=== PATIENT | female | born 1965 | race Caucasian/White ===

== ENCOUNTER 2017-04-12 12:47 | Emergency (ER) | payer OTHER ==
[~2017-04-12] VITALS: Ht 165.1 cm; Wt 71.3 kg
[~2017-04-12 12:47] MED LIST: SERT-234 PO
[2017-04-12 12:56] VITALS: BP 161/118; PULSE 91; TEMP 36.8; O2SAT 98; Ht 165.1 cm; Wt 71.3 kg
[2017-04-12] MEDS ORDERED: ASPI325T45 PO (13:50)
[2017-04-12] MEDS ORDERED: TPRSR/25 PO (13:50)
[2017-04-12] MEDS ORDERED: NRN100 PO (13:50)
[2017-04-12] MEDS ORDERED: NAPR-1169 PO (14:18)
--- NOTE | 2017-04-12 14:20 | EMERGENCY ROOM VISIT NOTE ---
History First contact with patient: 13:02 Chief Complaint: NECK PAIN Stated Complaint: BULDING DISC IN NECK,EXTREME PAIN History of Present Illness The patient is a 52 year old female who presents to the Emergency Room with complaints of neck pain. The patient states that she has had ongoing issues with neck pain for greater than 1 month. She reports that the pain is located on the left side and radiates into the left arm. She states that she had previously had some numbness and tingling in the arm, but this has resolved. She has seen her primary care provider and pain management for this pain in the past. She has received injections and has tried gabapentin and muscle relaxers without relief. She states that these medications do seem to have helped with the numbness and tingling in the arm, however they do not help with her pain. She has had an MRI performed which showed a bulging disc, per patient. She rates her overall discomfort a 10/10. She has been taking large amounts of aspirin at home for the pain. She states the pain is worse with range of motion. She reports that her primary care provider is in the process of setting her up with a cytogenetic technologist. Review of Systems A complete 10 point review of systems was reviewed with the patient with pertinent positives and negatives as per history of present illness. All else were negative. Past Medical/Surgical History Medical Problems: (1) Anxiety State Nos (2) Diverticulosis Colon (W/O Ment Of Hemorrhage) (3) Esophageal Reflux (4) Hypertension Nos (5) Irritable Bowel Syndrome (6) Tobacco Use Disorder Surgical Problems: (1) Total knee replacement status Family History Cancer Social History Smoking Status: Former Smoker Alcohol Use: occasionally Drug Use: none Housing Status: lives with family Occupation Status: disabled Current/Historical Medications Scheduled Aspirin (Aspirin), 650 MG PO DAILY Gabapentin (Gabapentin), 100-200 MG PO DAILY Metoprolol Succinate (Metoprolol Succinate ER), 25 MG PO DAILY Naproxen (Naprosyn), 500 MG PO BID Sertraline (Zoloft), 100 MG PO QAM Physical Exam Vital Signs Date Time Temp Pulse Resp B/P (MAP) Pulse Ox O2 Delivery O2 Flow Rate FiO2 04/12/17 12:56 36.8 91 20 161/118 98 Room Air Physical Exam VITALS: Vitals are noted on the nurse's note and reviewed by myself. Vital signs stable. GENERAL: This is a 52-year-old female, in no acute distress, nondiaphoretic, well-developed well-nourished. HEART: Regular rate and rhythm without murmurs gallops or rubs. LUNGS: Clear to auscultation bilaterally without wheezes, rales or rhonchi. MUSCULOSKELETAL: There is tenderness to palpation of the left cervical paraspinous muscles. Full range of motion of the neck and bilateral upper extremities. Strength 5/5 in the left upper extremity. NEURO: Patient was alert and oriented to person place and time. Normal sensation to light and sharp touch. Deep tendon reflexes 2+ throughout. No focal neurological deficits. Medical Decision & Procedures Medical Decision Differential diagnosis includes musculoskeletal pain, herniated disc, among others. The patient is a 52-year-old female who presents today complaining of left- sided neck pain. The patient has reportedly been seen by her primary care provider and pain management. She has been referred to a cytogenetic technologist. I do not feel that narcotic medication is indicated at this time and did offer the patient a prescription for Naprosyn, which she accepted. I did provide her with a referral to an orthopedic compensation specialist. She has no numbness or weakness in the upper extremities. I do not feel that any further imaging is necessary, as she has had MRI in the past. Further conservative measures were discussed with the patient. She verbalized understanding of my assessment and treatment plan and was discharged home in good condition. [place] Drug Monitoring Program Search Results: patient reviewed within database Medication Reconcilliation Current Medication List: was personally reviewed by me Blood Pressure Screening Patient's blood pressure: Elevated blood pressure Blood pressure disposition: Referred to PCP Impression Primary Impression: Cervical radiculopathy Departure Information Dispostion Home / Self-Care Condition GOOD Prescriptions Naproxen (Naprosyn) 500 Mg Tab 500 MG PO BID for 10 Days, #20 TAB Prov: Nieves Alcazar ., ORI 04/12/17 Referrals Diego Mario M.D. (MEDICAL) (PCP) Renaldo Farrell D.O. Patient Instructions My [facility] Additional Instructions Take the Naprosyn as prescribed. For pain control, you can use the following [id number] medicines (if >12 yo): - Regular strength (325mg/tab) Tylenol (acetaminophen) 2 tabs every 4-6 hours as needed. Do not exceed 12 tablets in a 24 hour period. Avoid taking more than 4 grams (4000 mg) of Tylenol per day. This includes any other sources of acetaminophen you may take on a regular basis. Follow-up with your primary care provider, pain management, and orthopedic spine for further evaluation of your neck pain.
== END 2017-04-12 14:25 | disposition home or self-care (01) ==
LOC: C.EDB 12:50 → C.EDD 14:25
DX: M54.12 Radiculopathy, cervical region (principal); F41.9 Anxiety disorder, unspecified; K57.30 Diverticulosis of large intestine without perforation or abscess without bleeding; K21.9 Gastro-esophageal reflux disease without esophagitis; I10 Essential (primary) hypertension; K58.9 Irritable bowel syndrome, unspecified; Z79.82 Long term (current) use of aspirin; Z87.891 Personal history of nicotine dependence; Z96.659 Presence of unspecified artificial knee joint

== ENCOUNTER 2018-07-05 14:43 | Inpatient (IN) ==
[2018-07-05] MEDS ORDERED: ONDANSETRON INJ 2 MG/ML 2 ML VIAL IV STA (15:22)
--- NOTE | 2018-07-05 15:27 | Emergency Department Note ---
ED Provider Note CHIEF COMPLAINT: right knee pain HISTORY OF PRESENT ILLNESS: The patient is a 53 y/o female who presents to the ER because of right knee pain , 10, sharp. The patient also notes the following associated symptoms: inability bear weight. The symptoms started 1 day ago and are rapidly worsening. No trauma. The patient has tried the following for relief :OTC pain meds without relief Prior history of knee replacement with infection and revision by Dr. Nicolas. Pt denies LOC, headache, fevers, chills, diaphoresis, visual changes, neck pain , chest pain, breathing difficulties, nausea, vomiting, abdominal pain, back pain, melena, hematochezia, urinary symptoms, numbness, weakness, lymphadenopathy, rash, or other complaints. REVIEW OF SYSTEMS: See HPI for pertinent positives and negatives. A total of ten systems were reviewed and were otherwise negative. PMHx/PSHx: TKR SOCIAL HISTORY: Patient lives at home. PHYSICAL EXAM: GENERAL: Awake, alert, very uncomfortable-appearing, in severe distress HENT: Normocephalic, atraumatic. Oropharynx unremarkable. EYES: PERRL. Normal conjunctiva. Sclera non-icteric. NECK: Inspection normal. Non-tender. Supple. No nuchal rigidity. FROM. No masses. RESPIRATORY: Clear to auscultation. No wheezes. No rales. Normal respiratory effort. CARDIAC: Normal rate. Normal rhythm. No murmurs. No rubs. Extremities warm and well perfused. Pulses equal. No JVD. GI: Soft, non-distended. No tenderness to palpation. No rebound or guarding. No masses. RECTAL: Deferred. MUSCULOSKELETAL: Atraumatic. Chest examination reveals no tenderness. The back is symmetrical on inspection without obvious abnormality. There is no CVA tenderness to palpation. No joint edema. LOWER EXTREMITIES: Calves are equal size bilaterally and non-tender. No edema. No discoloration. NEURO: Normal sensorium. No sensory or motor deficits noted. SKIN: No rash or jaundice noted. EMERGENCY DEPARTMENT COURSE: 1510: Past medical records reviewed. The patient was evaluated in room B7, and a complete history and physical examination were performed. 1624: I reevaluated the patient at this time who is feeling better. 1637: I reviewed the patient's case with Dr. [facility]. He will evaluate the patient for further management. 1648: I spoke with the patient at this time and updated her about her admission to the hospital. The patient requested a 3rd dose of pain medication at this time. MEDICAL DECISION MAKING: Triage Nursing notes reviewed. The patient's presentation and history were concerning for right knee pain and prior infection TKR Etiologies such as infection, soft tissue injury, fracture, dislocation, neurovascular compromise, compartment syndrome, as well as others were entertained. Patient was evaluated. She is quite uncomfortable. An IV was established. She was given multiple doses of IV Dilaudid for symptom control. Her blood work was concerning as she had a 13,000 white count. Her ESR and CRP were markedly elevated. Patient's chemistry panel lactate, pro-calcitonin were negative. X-ray imaging was performed and did not reveal any hardware abnormality however there was some swelling noted. I did discuss the case with [facility] association manager. The patient will be admitted to the hospital for further treatment and evaluation of a potential septic right knee prosthesis. Fluid analysis will be done by orthopedics. IMPRESSION: Right knee pain PLAN: Being Evaluated by orthopedics. The scribe's documentation has been prepared under my direction and personally reviewed by me in its entirety. I confirm that the note above accurately reflects all work, treatment, procedures, and medical decision making performed by me. Impression & Plan Knee pain, right Past Med/Surg History Surgical History Total knee replacement status Social History Current Living Situation: Alone Other Information That Helps Us Care for You: No Feels Safe at Home: Yes Safety Concerns: Feels Safe At This Time Smoking Status: Current every day smoker Tobacco Type: cigarettes Cigarettes per Day: 10 Do You Dip or Chew Tobacco: No Second Hand Exposure: No Tobacco Cessation Education Requested by Patient: No Hx Alcohol Use: Yes Alcohol Intake Frequency: other Hx Substance Use: No Beliefs That Will Affect Care: None Preferred Language: Italian Communication Ability: Effective Marketing Research Intern Required: No Results & Data Vital Signs Vital Signs - 24 hr 07/05/18 14:44 07/05/18 16:28 07/05/18 16:36 Temperature 36.8 C Temperature Source Oral Sepsis Recent Fever Within 48 Hours No Sepsis Action Taken by Nursing No Action Required Pulse Rate 87 Pulse Rate [Apical] Pulse Rate [Right Finger] Pulse Rhythm [Apical] Pulse Rhythm [Right Finger] Pulse Strength [Apical] Pulse Strength [Right Finger] Respiratory Rate 20 Respiratory Effort / Characteristics Non-Labored Spontaneous Respiratory Depth Normal Respiratory Pattern Regular Blood Pressure 139/88 Blood Pressure [Left Arm] Blood Pressure Mean 105 Blood Pressure Mean [Left Arm] Blood Pressure Position Sitting Blood Pressure Position [Left Arm] Pulse Oximetry 100 88 L 95 Oxygen Delivery Method Room Air Nasal Cannula Nasal Cannula Oxygen Flow Rate 2 07/05/18 17:00 07/05/18 17:01 07/05/18 18:28 Temperature 36.6 C Temperature Source Oral Sepsis Recent Fever Within 48 Hours Sepsis Action Taken by Nursing Pulse Rate 73 Pulse Rate [Apical] 77 Pulse Rate [Right Finger] 76 Pulse Rhythm [Apical] Regular Pulse Rhythm [Right Finger] Regular Pulse Strength [Apical] Normal Pulse Strength [Right Finger] Normal Respiratory Rate 18 20 16 Respiratory Effort / Characteristics Non-Labored Spontaneous Non-Labored Respiratory Depth Normal Normal Respiratory Pattern Regular Blood Pressure 114/68 Blood Pressure [Left Arm] 118/72 124/82 Blood Pressure Mean Blood Pressure Mean [Left Arm] 87 96 Blood Pressure Position Blood Pressure Position [Left Arm] Lying Sitting Pulse Oximetry 98 100 97 Oxygen Delivery Method Room Air Nasal Cannula Nasal Cannula Oxygen Flow Rate 2 2 07/05/18 23:11 Temperature 37.4 C Temperature Source Oral Sepsis Recent Fever Within 48 Hours Sepsis Action Taken by Nursing Pulse Rate Pulse Rate [Apical] Pulse Rate [Right Finger] 94 H Pulse Rhythm [Apical] Pulse Rhythm [Right Finger] Pulse Strength [Apical] Pulse Strength [Right Finger] Respiratory Rate 16 Respiratory Effort / Characteristics Respiratory Depth Respiratory Pattern Blood Pressure Blood Pressure [Left Arm] 134/81 Blood Pressure Mean Blood Pressure Mean [Left Arm] 98 Blood Pressure Position Blood Pressure Position [Left Arm] Lying Pulse Oximetry 99 Oxygen Delivery Method Room Air Oxygen Flow Rate Home Medications Current Medication List: was personally reviewed by me Laboratory Data Attestation: I reviewed the patient's lab results. Result diagrams: 07/05/18 15:25 07/05/18 15:25 Lab Results 07/05/18 07/05/18 07/05/18 Range/Units 15:25 15:25 15:25 WBC 13.55 H (4.8-10.8) K/uL RBC 4.00 L (4.2-5.4) M/uL Hgb 13.1 (12.0-16.0) g/dL Hct 39.1 (37-47) % MCV 97.8 (80-100) fL MCH 32.8 (25-34) pg MCHC 33.5 (32-36) g/dL RDW Std Deviation 47.3 H (36.4-46.3) fL RDW Coeff of Jan 13.3 (11.5-14.5) % Plt Count 272 (130-400) K/uL MPV 9.7 (7.4-10.4) fL Immature Gran % (Auto) 0.3 % Neut % (Auto) 77.0 % Lymph % (Auto) 14.3 % [place] % (Auto) 7.3 % Eos % (Auto) 1.0 % Baso % (Auto) 0.1 % Immature Gran # (Auto) 0.04 H (0.00-0.02) K/uL Neut # (Auto) 10.43 H (1.4-6.5) K/uL Lymph # (Auto) 1.94 (1.2-3.4) K/uL [place] # (Auto) 0.99 H (0.11-0.59) K/uL Eos # (Auto) 0.13 (0-0.5) K/uL Baso # (Auto) 0.02 (0-0.2) K/uL ESR 32 H (0-21) mm/hr PT (9.0-12.0) Seconds INR (0.9-1.1) Sodium 139 (136-145) mmol/L Potassium 3.6 (3.5-5.1) mmol/L Chloride 109 H (98-107) mmol/L Carbon Dioxide 24 (21-32) mmol/L Anion Gap 6.0 (3-11) BUN 17 (7-18) mg/dl Creatinine 0.82 (0.6-1.2) mg/dl Est Cr Clr Drug Dosing 74.3 ml/min Est GFR ( Amer) 94.7 Est GFR (Non-Af Amer) 81.7 BUN/Creatinine Ratio 21.2 H (10-20) Glucose 125 H (70-99) mg/dl POC Lactic Acid Jeff (0.90-1.70) mmol/L Calcium 8.9 (8.5-10.1) mg/dl Total Bilirubin 0.3 (0.2-1) mg/dl AST 10 L (15-37) U/L ALT 16 (12-78) U/L Alkaline Phosphatase 87 (45-117) U/L C-Reactive Protein 7.89 H (0-0.29) mg/dl Total Protein 7.6 (6.4-8.2) gm/dl Albumin 3.7 (3.4-5.0) gm/dl Globulin 3.9 (2.5-4.0) gm/dl Albumin/Globulin Ratio 0.9 (0.9-2) Procalcitonin (0-0.5) ng/ml Urine Color Urine Appearance (Clear) Urine pH (4.5-7.5) Ur Specific Hunt (1.000-1.030) Urine Protein (Negative) Urine Glucose (UA) (Negative) Urine Ketones (Negative) Urine Blood (Negative) Urine Nitrite (Negative) Urine Bilirubin (Negative) Urine Urobilinogen (Negative) Ur Leukocyte Esterase (Negative) Fluid Source Fluid Color Fluid Appearance Fluid WBC Fluid RBC Fluid Polynuclear WBCs Fld Polynuclear WBCs % Fluid Mononuclear WBCs Fld Mononuclear WBCs % Fluid Other Cells % Synovial Source Synovial Color Synovial Appearance Synovial WBC (0-200) /uL Synovial RBC /uL Synovial Polynuclear % % Synovial Mononuclear % % Synovial Crystals 07/05/18 07/05/18 07/05/18 Range/Units 15:25 15:25 15:33 WBC (4.8-10.8) K/uL RBC (4.2-5.4) M/uL Hgb (12.0-16.0) g/dL Hct (37-47) % MCV (80-100) fL MCH (25-34) pg MCHC (32-36) g/dL RDW Std Deviation (36.4-46.3) fL RDW Coeff of Jan (11.5-14.5) % Plt Count (130-400) K/uL MPV (7.4-10.4) fL Immature Gran % (Auto) % Neut % (Auto) % Lymph % (Auto) % [place] % (Auto) % Eos % (Auto) % Baso % (Auto) % Immature Gran # (Auto) (0.00-0.02) K/uL Neut # (Auto) (1.4-6.5) K/uL Lymph # (Auto) (1.2-3.4) K/uL [place] # (Auto) (0.11-0.59) K/uL Eos # (Auto) (0-0.5) K/uL Baso # (Auto) (0-0.2) K/uL ESR (0-21) mm/hr PT 9.9 (9.0-12.0) Seconds INR 1.0 (0.9-1.1) Sodium (136-145) mmol/L Potassium (3.5-5.1) mmol/L Chloride (98-107) mmol/L Carbon Dioxide (21-32) mmol/L Anion Gap (3-11) BUN (7-18) mg/dl Creatinine (0.6-1.2) mg/dl Est Cr Clr Drug Dosing ml/min Est GFR ( Amer) Est GFR (Non-Af Amer) BUN/Creatinine Ratio (10-20) Glucose (70-99) mg/dl POC Lactic Acid Jeff 1.50 (0.90-1.70) mmol/L Calcium (8.5-10.1) mg/dl Total Bilirubin (0.2-1) mg/dl AST (15-37) U/L ALT (12-78) U/L Alkaline Phosphatase (45-117) U/L C-Reactive Protein (0-0.29) mg/dl Total Protein (6.4-8.2) gm/dl Albumin (3.4-5.0) gm/dl Globulin (2.5-4.0) gm/dl Albumin/Globulin Ratio (0.9-2) Procalcitonin < 0.05 (0-0.5) ng/ml Urine Color Urine Appearance (Clear) Urine pH (4.5-7.5) Ur Specific Hunt (1.000-1.030) Urine Protein (Negative) Urine Glucose (UA) (Negative) Urine Ketones (Negative) Urine Blood (Negative) Urine Nitrite (Negative) Urine Bilirubin (Negative) Urine Urobilinogen (Negative) Ur Leukocyte Esterase (Negative) Fluid Source Fluid Color Fluid Appearance Fluid WBC Fluid RBC Fluid Polynuclear WBCs Fld Polynuclear WBCs % Fluid Mononuclear WBCs Fld Mononuclear WBCs % Fluid Other Cells % Synovial Source Synovial Color Synovial Appearance Synovial WBC (0-200) /uL Synovial RBC /uL Synovial Polynuclear % % Synovial Mononuclear % % Synovial Crystals 07/05/18 07/05/18 07/05/18 Range/Units 19:50 19:50 20:36 WBC (4.8-10.8) K/uL RBC (4.2-5.4) M/uL Hgb (12.0-16.0) g/dL Hct (37-47) % MCV (80-100) fL MCH (25-34) pg MCHC (32-36) g/dL RDW Std Deviation (36.4-46.3) fL RDW Coeff of Jan (11.5-14.5) % Plt Count (130-400) K/uL MPV (7.4-10.4) fL Immature Gran % (Auto) % Neut % (Auto) % Lymph % (Auto) % [place] % (Auto) % Eos % (Auto) % Baso % (Auto) % Immature Gran # (Auto) (0.00-0.02) K/uL Neut # (Auto) (1.4-6.5) K/uL Lymph # (Auto) (1.2-3.4) K/uL [place] # (Auto) (0.11-0.59) K/uL Eos # (Auto) (0-0.5) K/uL Baso # (Auto) (0-0.2) K/uL ESR (0-21) mm/hr PT (9.0-12.0) Seconds INR (0.9-1.1) Sodium (136-145) mmol/L Potassium (3.5-5.1) mmol/L Chloride (98-107) mmol/L Carbon Dioxide (21-32) mmol/L Anion Gap (3-11) BUN (7-18) mg/dl Creatinine (0.6-1.2) mg/dl Est Cr Clr Drug Dosing ml/min Est GFR ( Amer) Est GFR (Non-Af Amer) BUN/Creatinine Ratio (10-20) Glucose (70-99) mg/dl POC Lactic Acid Jeff (0.90-1.70) mmol/L Calcium (8.5-10.1) mg/dl Total Bilirubin (0.2-1) mg/dl AST (15-37) U/L ALT (12-78) U/L Alkaline Phosphatase (45-117) U/L C-Reactive Protein (0-0.29) mg/dl Total Protein (6.4-8.2) gm/dl Albumin (3.4-5.0) gm/dl Globulin (2.5-4.0) gm/dl Albumin/Globulin Ratio (0.9-2) Procalcitonin (0-0.5) ng/ml Urine Color Yellow Urine Appearance Clear (Clear) Urine pH 5.0 (4.5-7.5) Ur Specific Hunt 1.034 H (1.000-1.030) Urine Protein Negative (Negative) Urine Glucose (UA) Negative (Negative) Urine Ketones Negative (Negative) Urine Blood Negative (Negative) Urine Nitrite Negative (Negative) Urine Bilirubin Negative (Negative) Urine Urobilinogen Negative (Negative) Ur Leukocyte Esterase Negative (Negative) Fluid Source Cancelled Fluid Color Cancelled Fluid Appearance Cancelled Fluid WBC Cancelled Fluid RBC Cancelled Fluid Polynuclear WBCs Cancelled Fld Polynuclear WBCs % Cancelled Fluid Mononuclear WBCs Cancelled Fld Mononuclear WBCs % Cancelled Fluid Other Cells % Cancelled Synovial Source KNEE Synovial Color STRAW Synovial Appearance CLOUDY Synovial WBC 15122 H (0-200) /uL Synovial RBC 4000 /uL Synovial Polynuclear % 76.2 % Synovial Mononuclear % 23.8 % Synovial Crystals Cancelled Administered Medications Gabapentin (Neurontin) 600 mg PO TID ANGELIA Stop: 08/04/18 20:59 Last Admin: 07/05/18 21:04 Dose: 600 mg Hydromorphone HCl (Dilaudid) 1 mg IV Q15M PRN PRN Reason: Pain Stop: 07/19/18 15:21 Last Admin: 07/05/18 21:04 Dose: 1 mg Admin: 07/05/18 18:04 Dose: 1 mg Admin: 07/05/18 16:57 Dose: 1 mg Admin: 07/05/18 16:05 Dose: 1 mg Admin: 07/05/18 15:34 Dose: 1 mg Vancomycin HCl 1,750 mg/ (Sodium Chloride) 535 mls @ 200 mls/hr IV NOW STA Stop: 07/06/18 01:54 Last Admin: 07/05/18 23:34 Dose: 200 mls/hr Magnesium Hydroxide (Milk Of Magnesia) 30 ml PO Q6H PRN PRN Reason: Constipation Stop: 08/04/18 16:44 Last Admin: 07/05/18 21:28 Dose: 30 ml Morphine Sulfate (Morphine Sulfate) 4 mg IV Q4H PRN PRN Reason: Pain Stop: 07/19/18 16:51 Last Admin: 07/05/18 23:29 Dose: 4 mg Admin: 07/05/18 19:12 Dose: 4 mg Oxycodone HCl (Roxicodone Immediate Rel) 10 mg PO Q4H PRN PRN Reason: Pain Stop: 07/19/18 16:51 Last Admin: 07/05/18 19:55 Dose: 10 mg Discontinued Medications Ethyl Chloride (Ethyl Chloride) 1 ml EXT NOW ONE Stop: 07/05/18 16:52 Last Admin: 07/05/18 19:13 Dose: 1 ml Hydromorphone HCl (Dilaudid) 0.5 mg IV NOW STA Stop: 07/06/18 00:26 Last Admin: 07/06/18 00:52 Dose: 0.5 mg Ondansetron HCl (Zofran) 4 mg IV NOW STA Stop: 07/05/18 15:23 Last Admin: 07/05/18 15:34 Dose: 4 mg Imaging Data Radiologist's Impression: Radiology results as stated below per my review and the radiologist's interpretation: XR knee RT 3V CLINICAL HISTORY: pain, no trauma, prior TKR and infection COMPARISON: None. DISCUSSION: Evidence for a total knee replacement. Longstem prosthetics are present consistent with a replacement type procedure. Mild suprapatellar soft tissue edema. No well-defined lytic or blastic process. IMPRESSION: 1. Operative changes consistent with longstem prosthetics of a total joint replacement/revision procedure. 2. Mild peripatellar soft tissue edema. 3. No acute bony abnormality. The above report was generated using voice recognition software. It may contain grammatical, syntax or spelling errors. Electronically signed by: Estuardo Rodriguez M.D. 07/05/2018 4:27 PM Blood Pressure Blood Pressure Findings: Normal blood pressure Blood Pressure Disposition: further management by hospitalist Discharge Plan Visit Data *Final* Discharge Date/Time: 07/05/18 18:28 Chief Complaint: Knee Injury/Pain Stated Complaint: RIGHT KNEE PAIN ED Provider: Kai Winters Discharge Problem: Knee pain, right Patient Disposition: Admitted As Inpatient Discharge Instructions Interventions: ED Discharge Assessment Last Done: 07/05/18 18:28
[2018-07-05] MEDS: HYDROmorphone INJ 1 MG/ML SYRINGE IV PRN ×5 (15:34→21:04)
[2018-07-05 15:41] LABS: Basophils # (auto) 0.02 K/uL (0-0.2); Basophils % (auto) 0.1 %; Eosinophils # (auto) 0.13 K/uL (0-0.5); Hematocrit (blood only) 39.1 % (37-47); Hemoglobin 13.1 g/dL (12.0-16.0); Immature Granulocytes # (auto) 0.04 K/uL (0.00-0.02); Immature Granulocytes % (auto) 0.3 %; Lymphocytes # (auto) 1.94 K/uL (1.2-3.4); Lymphocytes % (auto) 14.3 %; Mean Corpuscular Hgb Conc 33.5 g/dL (32-36); Mean Corpuscular Volume 97.8 fL (80-100); Mean Platelet Volume 9.7 fL (7.4-10.4); Monocytes # (auto) 0.99 K/uL (0.11-0.59); Monocytes % (auto) 7.3 %; Neutrophils # (auto) 10.43 K/uL (1.4-6.5); Platelet Count 272 K/uL (130-400); RDW Coefficient of Variation 13.3 % (11.5-14.5); RDW Standard Deviation 47.3 fL (36.4-46.3); White Blood Count 13.55 K/uL (4.8-10.8)
[2018-07-05 16:00] LABS: Albumin Level 3.7 gm/dl (3.4-5.0); BUN Creatinine Ratio 21.2 (10-20); Calcium 8.9 mg/dl (8.5-10.1); Creatinine Clr Calc Pharmacy 74.3 ml/min; Est GFR (African American) 94.7; Est GFR (Non-African American) 81.7; Potassium 3.6 mmol/L (3.5-5.1)
[2018-07-05 16:03] LABS: Albumin Globulin Ratio 0.9 (0.9-2); Bilirubin,Total 0.3 mg/dl (0.2-1); C Reactive Protein 7.89 mg/dl (0-0.29); Globulin 3.9 gm/dl (2.5-4.0); Total Protein 7.6 gm/dl (6.4-8.2)
--- NOTE | 2018-07-05 16:29 | XRay Report ---
XR knee RT 3V CLINICAL HISTORY: pain, no trauma, prior TKR and infection COMPARISON: None. DISCUSSION: Evidence for a total knee replacement. Longstem prosthetics are present consistent with a replacement type procedure. Mild suprapatellar soft tissue edema. No well-defined lytic or blastic process. IMPRESSION: 1. Operative changes consistent with longstem prosthetics of a total joint replacement/revision proce dure. 2. Mild peripatellar soft tissue edema. 3. No acute bony abnormality. The above report was generated using voice recognition software. It may contain grammatical, syntax or spelling errors. Electronically signed by: Estuardo Rodriguez M.D. 07/05/2018 4:27 PM
[2018-07-05] MEDS ORDERED: ACETAMINOPHEN 325 MG TAB PO PRN (16:45)
[2018-07-05] MEDS ORDERED: MAGNESIUM HYDROXIDE SUSP 30 ML UDC PO PRN (16:45)
[2018-07-05] MEDS ORDERED: ONDANSETRON INJ 2 MG/ML 2 ML VIAL IV PRN (16:45)
[2018-07-05] MEDS ORDERED: ETHYL CHLORIDE AER SPR 100 ML CAN EXT ONE (16:51)
--- NOTE | 2018-07-05 17:12 | History & Physical Report ---
Date of Service July 05, 2018 Assessment & Plan (1) Painful total knee replacement, right: Acute onset of painful right total knee arthroplasty. Due to the patient' s significant past history for septic TKA and the acute onset of pain/effusion of her right total knee arthroplasty, the patient was admitted for pain control and work up to r/o PJI. I have indicated the patient for right knee arthrocentesis, risks, benefits and complications were explained to the patient detail which include however not limited to infections, blood loss, hematoma, pain, need for re-aspiration, injury to surrounding nerves, bone, vessels, soft tissue. Patient wished to proceed with arthrocentesis and informed consent was obtained. -Synovial fluid analysis pending -UA pening -Blood cultures pending -Pain control -Ice and elevation right knee -3 phase bone scan History of Present Illness Chief Complaint: Right knee pain Primary Care Provider: Estuardo Booth The patient is a 53 year old female with significant hx for R TKA by Dr. Nicolas in 2007, with subsequent infection resulting in explant, antibiotic spacer and revision TKA performed 05/2011. The patient reports a 1 day history of increasing pain and difficulty ambulating. Patient denies recent infections, open wounds, denies F/C/N/V/SOB/CP. Denies trauma to R knee. Denies history of gout. Follows up with Dr. Nicolas regularly. Seen at [facility] and found to have elevated inflammatory markers and subsequently admitted for observation for further work up for septic R TKA. Allergies Allergy/AdvReac Type Severity Reaction Status Date / Time enoxaparin Allergy Intermediate RASH Verified 07/05/18 16:09 Sulfa (Sulfonamide Allergy Unknown HIVES TO Verified 07/05/18 16:09 Antibiotics) SULFA DRUGS Home Medications Home Medications Medication Instructions Recorded Confirmed Type aspirin 650 mg PO Q6H 07/05/18 07/05/18 History gabapentin [Neurontin] 600 mg PO TID 07/05/18 07/05/18 History methylphenidate HCl [Ritalin] 10 mg PO BID 07/05/18 07/05/18 History methylphenidate HCl [Ritalin] 20 mg PO QAM 07/05/18 07/05/18 History metoprolol succinate [Toprol XL] 100 mg PO DAILY 07/05/18 07/05/18 History omeprazole 20 mg PO DAILYBB 07/05/18 07/05/18 History sertraline [Zoloft] 100 mg PO QAM 07/05/18 07/05/18 History Past Med/Surg History Surgical History Total knee replacement status Social History Current Living Situation: Alone Other Information That Helps Us Care for You: No Feels Safe at Home: Yes Safety Concerns: Feels Safe At This Time Smoking Status: Current every day smoker Tobacco Type: cigarettes Cigarettes per Day: 10 Do You Dip or Chew Tobacco: No Second Hand Exposure: No Tobacco Cessation Education Requested by Patient: No Hx Alcohol Use: Yes Alcohol Intake Frequency: other Hx Substance Use: No Beliefs That Will Affect Care: None Preferred Language: Lao Communication Ability: Effective 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 Patient 's knee is diffusely tender. Constitutional: WD/WN, vitals as above well developed Eyes: PERRL, conjunctivae normal, anicteric sclerae ENMT: external ear and nose normal, oropharynx normal Respiratory: normal respiratory effort, lungs clear to auscultation Cardiovascular: RRR, no murmur, no edema Gastrointestinal (Abdomen): normal bowel sounds, soft, nontender, no hepatosplenomegaly Skin: no rashes, warm and dry Neurologic: patellar DTR's 2+ bilat, sensation intact and PERRL, EOMI, accommodation nl, no face palsy, no dysarthria Psychiatric: A+Ox3, euthymic affect Lymphatic: no cervical or axillary lymphadenopathy Results & Data Diagnostic Findings XR knee RT 3V CLINICAL HISTORY: pain, no trauma, prior TKR and infection COMPARISON: None. DISCUSSION: Evidence for a total knee replacement. Longstem prosthetics are present consistent with a replacement type procedure. Mild suprapatellar soft tissue edema. No well-defined lytic or blastic process. IMPRESSION: 1. Operative changes consistent with longstem prosthetics of a total joint replacement/revision procedure. 2. Mild peripatellar soft tissue edema. 3. No acute bony abnormality.
[2018-07-05 17:39] LABS: Prothrombin Time 9.9 Seconds (9.0-12.0)
--- NOTE | 2018-07-05 19:01 | XRay Report ---
XR chest 2V routine CLINICAL HISTORY: clearance preoperative COMPARISON STUDY: No previous studies for comparison. FINDINGS: The bones soft tissues and hemidiaphragms are normal. The cardiomediastinal silhouette is n ormal. The lungs are clear. The pulmonary vasculature is normal. IMPRESSION: Negative chest. The above report was generated using voice recognition software. It may contain grammatical, syntax or spelling errors. Electronically signed by: Estuardo Rodriguez M.D. 07/05/2018 6:59 PM
[2018-07-05] MEDS: MoRPHine SULFATE 4 MG/ML 1 ML CARP\\VIAL IV PRN ×2 (19:12→23:29)
[2018-07-05] MEDS: OXYCODONE HCL IR 5 MG TAB (IMMEDIATE RELEASE) PO PRN (19:55)
--- NOTE | 2018-07-05 19:57 | Procedure Note ---
Procedure Note Date of Service July 05, 2018 The patient's right knee was prepped with a combination of Betadine and alcohol. Utilizing sterile techniques, 18 gauge needle and 60cc syringe, an anterolateral arthrocentesis was performed. 20 cc of cloudy yellow synovial fluid was collected. 4x4's and scott wrap were applied to the knee. The patient tolerated the procedure well.
[2018-07-05] MEDS: GABAPENTIN 600 MG TAB PO SCH (21:04)
[2018-07-05 21:18] LABS: Appearance Urine Clear (Clear); Bilirubin Urine Negative (Negative); Color Urine Yellow; Glucose Urine UA Negative (Negative); Ketones Urine Negative (Negative); Leukocyte Esterase Urine Negative (Negative); Nitrite Urine Negative (Negative); Protein Urine Negative (Negative); Specific Gravity Urine 1.034 (1.000-1.030); Urobilinogen Urine Negative (Negative)
[2018-07-05 21:19] LABS: Appearance Synovial Fluid CLOUDY; Color Synovial Fluid STRAW; Polynuclear WBC Synovial 76.2 %; RBC Synovial Fluid (A) 4000 /uL; Source Synovial Fluid KNEE; WBC Synovial Fluid (A) 20576 /uL (0-200)
[2018-07-05] MEDS ORDERED: VANCOMYCIN CONSULT ACTIVE PRN (22:07)
[2018-07-05] MEDS ORDERED: VANCOMYCIN HCL 1,750 MG in SODIUM CHLORIDE 0.9% 500 ML IV STA (23:14)
[2018-07-06] MEDS ORDERED: HYDROmorphone INJ 0.5 MG/0.5 ML SYR IV STA (00:25)
--- NOTE | 2018-07-06 00:25 | Consultation ---
Date of Consultation July 06, 2018 Assessment & Plan (1) Painful total knee replacement, right: 53 y/o F Hx HTN, ADHD, GERD, smoker, chronic neck pain/radiculopathy, depression/anxiety. Presenting with pain in her R knee. She has a history of TKA 2008, explantation due to infection and revision 2010. She denies fevers or rigors presently. The pt was evaluated by orthopedics and underwent arthrocentesis. G-stain returned with rare G (+) cocci. She will likely proceed to the OR AM for a washout. We are asked to evaluate her therefore. At the time of our evaluation, she c/o knee pain only. 1) Pre-op eval - no significant CV risk factors - RCRI 0.4% - presently although baseline EKG is pending. On review of her med list, none of her present meds need to be DCd periop aside form ASA si needed, Adderall can be held while she is hospitalized as this is a full service facility. 2) HTN - cont Toprol 3) Radiculopathy - cont Mckenna 4) GERD - cont Omeprazole 5) Depression - cont Sertraline Advised against further smoking Total time for this consult including review of labs, meds, imaging, ortho records, discussion with pt - 33 min - med service will f/u post procedure History of Present Illness Reason for Consultation: Pre-op medical evaluation Requesting Physician: Ish Attending Physician: Ronald Nicolas DO History of Present Illness 53 y/o F Hx HTN, ADHD, GERD, smoker, chronic neck pain/radiculopathy, depression /anxiety. Presenting with pain in her R knee. She has a history of TKA 2007, explantation due to infection and revision 2010. She denies fevers or rigors presently. The pt was evaluated by orthopedics and underwent arthrocentesis. G-stain returned with rare G (+) cocci. She will likely proceed to the OR AM for a washout. We are asked to evaluate her therefore. At the time of our evaluation, she c/o knee pain only. PMH: 1) Chronic neck pain - cervical radiculopathy 2) DJD 3) ADHD 4) HTN 5) GERD 6) Depression/anxiety Surgical: 1) R TKA 2007, revision after infection 2010 2) R shoulder surgery Social: Smokes 1/2 pack daily - no ETOH Family: Father owing to colon CA Allergies Allergy/AdvReac Type Severity Reaction Status Date / Time enoxaparin Allergy Intermediate RASH Verified 07/05/18 16:09 Sulfa (Sulfonamide Allergy Unknown HIVES TO Verified 07/05/18 16:09 Antibiotics) SULFA DRUGS Home Medications Home Medications Medication Instructions Recorded Confirmed Type aspirin 650 mg PO Q6H 07/05/18 07/05/18 History gabapentin [Neurontin] 600 mg PO TID 07/05/18 07/05/18 History methylphenidate HCl [Ritalin] 10 mg PO BID 07/05/18 07/05/18 History methylphenidate HCl [Ritalin] 20 mg PO QAM 07/05/18 07/05/18 History metoprolol succinate [Toprol XL] 100 mg PO DAILY 07/05/18 07/05/18 History omeprazole 20 mg PO DAILYBB 07/05/18 07/05/18 History sertraline [Zoloft] 100 mg PO QAM 07/05/18 07/05/18 History Patient History Surgical History Total knee replacement status Social History Current Living Situation: Alone Other Information That Helps Us Care for You: No Feels Safe at Home: Yes Safety Concerns: Feels Safe At This Time Smoking Status: Current every day smoker Tobacco Type: cigarettes Cigarettes per Day: 10 Do You Dip or Chew Tobacco: No Second Hand Exposure: No Tobacco Cessation Education Requested by Patient: No Hx Alcohol Use: Yes Alcohol Intake Frequency: other Hx Substance Use: No Beliefs That Will Affect Care: None Preferred Language: Albanian Communication Ability: Effective Rim Turning Finisher Required: No Review of Systems General: Denies fevers, night sweats, weight loss, weight gain ENT: Denies throat pain, nasal congestion Eyes: Denies acute visual impairment, eye pain Cardiovascular: Denies CP, palpitations, PND, orthopnea Respiratory: Denies SOB, productive cough, wheezing GI: Denies nausea, vomiting, diarrhea, constipation, GI bleeding : Denies dysuria, hesitancy, frequency, hematuria Neuro: Denies headache, lightheadedness, syncope, unilateral weakness, acute loss of balance, memory loss Endocrine: Denies polydypsia, polyuria Heme: Denies unexplained bruising Skin: Denies acute rash or ulcers Musculoskeletal: Knee pain as above Physical Exam 2 Vital Signs (Past 24 Hours): Last Vital Signs Temp 37.4 C 07/05/18 23:11 Pulse 94 H 07/05/18 23:11 Resp 16 07/05/18 23:11 BP 134/81 07/05/18 23:11 Pulse Ox 99 07/05/18 23:11 Physical Exam: General: AAO x 3, no distress ENT: No erythema or exudates, no thrush Eyes: GLEN, EOMI Head and neck: Normocephalic, atraumatic, No JVD, neck is supple. Chest/heart: Nontender, S1,2, RRR, no murmurs, no gallops Lungs: CTAB, no wheezing or crackles Abdomen: Nontender, nondistended, BS+ Neuro: AAO x 3, speech is clear, no unilateral weakness or loss of sensation, coordination intact Musculoskeletal: Acnnot bend R knee at present due to pain Skin: No acute rashes or ulcers Extremities: No clubbing, cyanosis, edema
[2018-07-06] MEDS: PANTOprazole 40 MG TAB PO SCH (05:39)
[2018-07-06] MEDS: OXYCODONE HCL IR 5 MG TAB (IMMEDIATE RELEASE) PO PRN ×4 (05:39→18:34)
[2018-07-06 05:54] LABS: Basophils # (auto) 0.01 K/uL (0-0.2); Basophils % (auto) 0.1 %; Eosinophils # (auto) 0.05 K/uL (0-0.5); Eosinophils % (auto) 0.4 %; Hematocrit (blood only) 37.9 % (37-47); Hemoglobin 12.2 g/dL (12.0-16.0); Immature Granulocytes # (auto) 0.04 K/uL (0.00-0.02); Immature Granulocytes % (auto) 0.4 %; Lymphocytes # (auto) 1.48 K/uL (1.2-3.4); Lymphocytes % (auto) 13.2 %; Mean Corpuscular Hgb Conc 32.2 g/dL (32-36); Mean Corpuscular Volume 98.7 fL (80-100); Mean Platelet Volume 10.1 fL (7.4-10.4); Monocytes # (auto) 1.15 K/uL (0.11-0.59); Monocytes % (auto) 10.2 %; Neutrophils % (auto) 75.7 %; Platelet Count 227 K/uL (130-400); RDW Coefficient of Variation 13.5 % (11.5-14.5); RDW Standard Deviation 48.7 fL (36.4-46.3); Red Blood Count 3.84 M/uL (4.2-5.4); White Blood Count 11.23 K/uL (4.8-10.8)
[2018-07-06] MEDS: MoRPHine SULFATE 4 MG/ML 1 ML CARP\\VIAL IV PRN ×3 (06:07→20:35)
[2018-07-06 06:30] LABS: BUN Creatinine Ratio 17.2 (10-20); Calcium 8.5 mg/dl (8.5-10.1); Creatinine Clr Calc Pharmacy 89.6 ml/min; Est GFR (African American) 115.7; Est GFR (Non-African American) 99.9; Potassium 3.6 mmol/L (3.5-5.1)
--- NOTE | 2018-07-06 08:33 | Orthopedic Progress Note ---
Date of Service July 06, 2018 Assessment & Plan (1) Infection of total right knee replacement: follow cultures pain management plan for open I&D of right knee with poly change. Patient was seen and examined, agree with above assessment plan. Gram stain positive for gram-positive cocci, synovial fluid cell count 20,000, synovial cultures pending, blood cultures pending, discussed case with Dr. Nicolas, plan will be to proceed with OR on 07/07/2018 for irrigation and debridement of the right knee with polyethylene exchange. Continue with IV vancomycin at this time. Will make adjustments to her pain medication regimen. N.p.o. after midnight. WBC down to 11 today. Subjective Pt lying in bed. Upon arrival into the room, she complains of pain in the right knee. Pt writhing at times. No new complaints. Denies SOB, CP, LH, Abdominal pain. Aspirate growing out Gram + cocci. Physical Exam 2 Vital Signs (Past 24 Hours): Last Vital Signs Temp 37.7 C H 07/06/18 06:58 Pulse 91 H 07/06/18 06:58 Resp 16 07/06/18 06:58 BP 147/84 H 07/06/18 06:58 Pulse Ox 92 07/06/18 06:58 Physical Exam: Knee with scott wrap. No overt /tense swelling but the knee is more swollen than the left. Minimal ROM causes increased pain. Knee is warm to touch that translates down the LE. Toes mobile. Cap refill less than 2 seconds. Incision is clean dry and intact Vital signs stable.
[2018-07-06] MEDS ORDERED: NALOXONE HCL 0.4 MG/1 ML VIAL/CARP IV PRN (09:16)
[2018-07-06] MEDS ORDERED: OXYCODONE HCL 10 MG TABCR (OXYCONTIN) ONE (09:57)
[2018-07-06] MEDS: METOPROLOL SUCC 50MG EXT REL TAB PO SCH (09:58)
[2018-07-06] MEDS: GABAPENTIN 600 MG TAB PO SCH ×3 (09:58→20:38)
[2018-07-06] MEDS: SERTRALINE HCL 100 MG TABLET PO SCH (09:58)
[2018-07-06] MEDS: OXYCODONE HCL 10 MG TABCR (OXYCONTIN) PO SCH ×2 (10:00→20:50)
[2018-07-06] MEDS: METHYLPHENIDATE HCL 10 MG TABLET PO SCH ×3 (10:08→16:09)
[2018-07-06] MEDS: VANCOMYCIN HCL 1,000 MG in SODIUM CHLORIDE 0.9% 250 ML IV SCH ×2 (12:24→23:55)
--- NOTE | 2018-07-06 15:27 | Pharmacy Report ---
Pharmacy Abx Initial Consult - Date of Service July 06, 2018 - Pharmacy Dosing Scope Date of Consult: 07/05/18 Consultation requested by: Dr. Hager Pharmacy is consulted to initiate vancomycin IV dosing therapy, order appropriate labs and adjust drug dose/frequency. - Subjective The patient is a 53 year old F admitted on 07/05/18 16:45. - Objective Height: 5 ft 6 in Weight: 69 kg Vital Signs (Past 12hrs): Vital Signs Temp Pulse Resp BP Pulse Ox 07/06/18 14:52 36.5 C 76 18 118/78 96 07/06/18 10:01 85 137/88 07/06/18 06:58 37.7 C H 91 H 16 147/84 H 92 Lab Results (24hrs): Laboratory Tests (24 Hours) 07/06/18 07/06/18 07/05/18 05:21 05:21 15:25 WBC 11.23 H Neut # (Auto) 8.50 H ESR Creatinine 0.68 Est Cr Clr Drug Dosing 89.6 C-Reactive Protein Procalcitonin < 0.05 07/05/18 07/05/18 07/05/18 15:25 15:25 15:25 WBC 13.55 H Neut # (Auto) 10.43 H ESR 32 H Creatinine 0.82 Est Cr Clr Drug Dosing 74.3 C-Reactive Protein 7.89 H Procalcitonin Micro Results: 07/05/18 19:50 Gram Stain - Final Joint Fluid/Space (Synovial) 07/05/18 20:23 Fungal Smear - Final Knee,Right Fungal Culture - Pending 07/05/18 19:50 Acid Fast Bacilli Smear - Pending Tissue,Undefined Acid Fast Bacilli Culture - Pending 07/05/18 16:19 Blood Culture - Pending Blood 07/05/18 15:25 Blood Culture - Pending Blood - Assessment & Plan Assessment * 53 year old F admitted for cute onset of painful right total knee arthroplasty * Significant past history for septic TKA Plan Vancomycin IV * Estimated PK Parameters: Vd 0.7 L/kg, Vinnie 0.074 hr-1, t1/2 9.3 hr * Loading dose: 1750 mg (25 mg/kg) * Maintenance dose: 1000 mg IV (14.5 mg/kg) every 12 hours * Goal trough level: 15 to 20 mcg/mL * Trough ordered for: 07/07 @1130 Pharmacy will continue to follow and will adjust dose/frequency as necessary. Thank you.
--- NOTE | 2018-07-06 16:26 | Anesthesiology Consultation ---
Date of Service July 06, 2018 Assessment & Plan (1) Encounter for pre-operative examination: Chart Review Chart Review: Acceptable Risk for Surgery ASA ASA2 Proposed Anesthesia Anesthesia Type: General NPO Date Last Intake of Fluids: 07/06/18 Time Last Intake of Fluids: 06:00 Last Intake of Fluids Comment: sips with meds. Date Last Intake of Solids: 07/05/17 Time Last Intake of Solids: 23:00 History Surgery Operation Date: 07/07/18 07:00 Proposed Procedures p Right Incision and Drainage Poly Exchange González Nicolas DO Height/Weight Height: 5 ft 6 in Weight: 69 kg Allergies Allergy/AdvReac Type Severity Reaction Status Date / Time enoxaparin Allergy Intermediate RASH Verified 07/07/18 11:14 Sulfa (Sulfonamide Allergy Unknown HIVES TO Verified 07/07/18 11:14 Antibiotics) SULFA DRUGS Medications Home Medications Medication Instructions Recorded Confirmed Last Taken aspirin 650 mg PO Q6H 07/05/18 07/05/18 07/05/18 gabapentin [Neurontin] 600 mg PO TID 07/05/18 07/05/18 07/05/18 methylphenidate HCl [Ritalin] 10 mg PO BID 07/05/18 07/05/18 07/05/18 methylphenidate HCl [Ritalin] 20 mg PO QAM 07/05/18 07/05/18 07/05/18 metoprolol succinate [Toprol XL] 100 mg PO DAILY 07/05/18 07/05/18 07/05/18 omeprazole 20 mg PO DAILYBB 07/05/18 07/05/18 07/05/18 sertraline [Zoloft] 100 mg PO QAM 07/05/18 07/05/18 07/05/18 Active Medications Generic Name Dose Route Start Last Admin Trade Name Freq PRN Reason Stop Dose Admin Gabapentin 600 mg 07/05/18 21:00 07/07/18 09:30 Neurontin PO 08/04/18 20:59 600 mg TID ANGELIA Administration Vancomycin HCl 1,000 mg/ 270 mls @ 125 mls/hr 07/06/18 12:00 07/07/18 02:05 Sodium Chloride IV 08/17/18 11:59 125 mls/hr Q12H ANGELIA Infusion Protocol Magnesium Hydroxide 30 ml 07/05/18 16:45 07/05/18 21:28 Milk Of Magnesia PO 08/04/18 16:44 30 ml Q6H PRN Administration Constipation Methylphenidate HCl 10 mg 07/06/18 12:00 07/06/18 16:09 Ritalin PO 07/20/18 11:59 10 mg BID@1200,1600 ANGELIA Administration Methylphenidate HCl 20 mg 07/06/18 09:00 07/07/18 10:12 Ritalin PO 07/20/18 08:59 Not Given QAM ANGELIA Metoprolol Succinate 100 mg 07/06/18 09:00 07/07/18 09:30 Toprol Xl PO 08/05/18 08:59 100 mg DAILY ANGELIA Administration Morphine Sulfate 4 mg 07/06/18 08:11 07/07/18 09:53 Morphine Sulfate IV 07/19/18 16:51 4 mg Q3H PRN Administration Pain Oxycodone HCl 5 mg 07/05/18 16:52 07/06/18 18:34 Roxicodone Immediate Rel PO 07/19/18 16:51 5 mg Q4H PRN Administration Pain Oxycodone HCl 10 mg 07/05/18 16:52 07/07/18 08:12 Roxicodone Immediate Rel PO 07/19/18 16:51 10 mg Q4H PRN Administration Pain Oxycodone HCl 10 mg 07/06/18 09:15 07/07/18 09:29 Oxycontin PO 07/20/18 09:14 10 mg BID ANGELIA Administration Pantoprazole Sodium 40 mg 07/06/18 06:30 07/07/18 05:15 Protonix PO 08/05/18 06:29 40 mg DAILYBB ANGELIA Administration Sertraline HCl 100 mg 07/06/18 09:00 07/07/18 09:29 Zoloft PO 08/05/18 08:59 100 mg QAM ANGELIA Administration Past Medical History Medical History ADHD Anxiety Chronic neck pain with radiculopathy Depression GERD (gastroesophageal reflux disease) Hypertension Past Surgical History Surgical History Total knee replacement status TKA 2007, Revision 2010 secondary to infection Social History Smoking Status: Current every day smoker tobacco type: cigarettes Smoking cigarettes per day: 10 Do You Dip or Chew Tobacco: No Hx Alcohol Use: Yes alcohol intake frequency: other Alcohol Intake Frequency Comment: on weekends Hx Substance Use: No Physical Exam Vital Signs Last Vital Signs Temp 36.5 C 07/07/18 11:14 Pulse 68 07/07/18 11:14 Resp 16 07/07/18 11:14 BP 102/69 07/07/18 11:14 Pulse Ox 93 07/07/18 11:14 Testing Electrocardiogram Date: 07/05/18 Findings: + NSR @ (74) Normal sinus rhythm Normal ECG When compared with ECG of 21-MAR-2016 12:09, No significant change was found Confirmed by BARRETT AVILA ([id number]) on 07/06/2018 3:25:40 PM Chest X-Ray Date: 07/05/18 Laboratory Results 07/07/18 05:57 07/07/18 05:57 PT 9.9 Seconds (9.0-12.0) 07/05/18 15:25 INR 1.0 (0.9-1.1) 07/05/18 15:25 Urine Color Yellow 07/05/18 20:36 Urine Appearance Clear (Clear) 07/05/18 20:36 Urine pH 5.0 (4.5-7.5) 07/05/18 20:36 Ur Specific [place] 1.034 (1.000-1.030) H 07/05/18 20:36 Urine Protein Negative (Negative) 07/05/18 20:36 Urine Glucose (UA) Negative (Negative) 07/05/18 20:36 Urine Ketones Negative (Negative) 07/05/18 20:36 Urine Nitrite Negative (Negative) 07/05/18 20:36 Ur Leukocyte Esterase Negative (Negative) 07/05/18 20:36 07/05/18 15:25 Blood Culture - Preliminary Blood Staphylococcus aureus 07/05/18 19:50 Acid Fast Bacilli Smear - Final Tissue,Undefined 07/05/18 19:50 Gram Stain - Final Joint Fluid/Space (Synovial) Aerobic and Anaerobic Culture - Preliminary Staphylococcus aureus 07/05/18 16:19 Blood Culture - Preliminary Blood No growth to date. 07/05/18 20:23 Fungal Smear - Final Knee,Right
[2018-07-07] MEDS: OXYCODONE HCL IR 5 MG TAB (IMMEDIATE RELEASE) PO PRN ×5 (04:07→21:01)
[2018-07-07] MEDS: PANTOprazole 40 MG TAB PO SCH (05:15)
[2018-07-07 06:13] LABS: Basophils # (auto) 0.02 K/uL (0-0.2); Basophils % (auto) 0.2 %; Eosinophils % (auto) 0.9 %; Hematocrit (blood only) 35.7 % (37-47); Hemoglobin 11.5 g/dL (12.0-16.0); Immature Granulocytes # (auto) 0.02 K/uL (0.00-0.02); Immature Granulocytes % (auto) 0.2 %; Lymphocytes # (auto) 1.36 K/uL (1.2-3.4); Lymphocytes % (auto) 11.6 %; Mean Corpuscular Hgb Conc 32.2 g/dL (32-36); Mean Corpuscular Volume 99.2 fL (80-100); Mean Platelet Volume 9.6 fL (7.4-10.4); Monocytes # (auto) 1.48 K/uL (0.11-0.59); Monocytes % (auto) 12.6 %; Neutrophils # (auto) 8.77 K/uL (1.4-6.5); Neutrophils % (auto) 74.5 %; Platelet Count 213 K/uL (130-400); RDW Coefficient of Variation 13.2 % (11.5-14.5); RDW Standard Deviation 47.8 fL (36.4-46.3); White Blood Count 11.75 K/uL (4.8-10.8)
[2018-07-07 06:48] LABS: BUN Creatinine Ratio 16.1 (10-20); Calcium 8.7 mg/dl (8.5-10.1); Creatinine Clr Calc Pharmacy 89.6 ml/min; Est GFR (African American) 115.7; Est GFR (Non-African American) 99.9; Potassium 3.7 mmol/L (3.5-5.1)
[2018-07-07] MEDS: OXYCODONE HCL 10 MG TABCR (OXYCONTIN) PO SCH ×2 (09:29→20:43)
[2018-07-07] MEDS: SERTRALINE HCL 100 MG TABLET PO SCH (09:29)
[2018-07-07] MEDS: METOPROLOL SUCC 50MG EXT REL TAB PO SCH (09:30)
[2018-07-07] MEDS: GABAPENTIN 600 MG TAB PO SCH ×3 (09:30→20:41)
[2018-07-07] MEDS: MoRPHine SULFATE 4 MG/ML 1 ML CARP\\VIAL IV PRN ×3 (09:53→22:36)
[2018-07-07] MEDS: METHYLPHENIDATE HCL 10 MG TABLET PO SCH ×3 (10:12→17:07)
[2018-07-07] MEDS ORDERED: VANCOMYCIN TROUGH ONE (11:30)
[2018-07-07] MEDS ORDERED: BACITRACIN INJ 50,000 UNIT VIAL ONE ×2 (11:43→12:37)
[2018-07-07] MEDS ORDERED: POVIDONE-IODINE OP SOLN 30 ML BTL ONE (11:43)
[2018-07-07] MEDS ORDERED: fentaNYL citrate 100 MCG/2 ML VIAL ONE ×2 (11:50→13:10)
[2018-07-07] MEDS ORDERED: MIDAZOLAM HCL 1 MG/ML 2ML VIAL ONE (11:50)
[2018-07-07] MEDS ORDERED: CEFAZOLIN 2,000 MG/15 ML IV PUSH IV ONE (12:41)
--- NOTE | 2018-07-07 12:42 | History & Physical Bridge Note ---
Date of Service July 07, 2018 History & Physical Bridge Note I have examined the patient, reviewed the History & Physical and in the interval since the performance of the History & Physical I have noted the following changes of clinical significance: no changes noted
[2018-07-07] MEDS ORDERED: CEFAZOLIN 2000MG 2,000 MG/15 ML SYR IV SCH (12:45)
[2018-07-07] MEDS ORDERED: KETOROLAC 30 MG/ML VIAL IV PRN (12:48)
[2018-07-07] MEDS ORDERED: ONDANSETRON INJ 2 MG/ML 2 ML VIAL IV PRN (12:48)
[2018-07-07] MEDS ORDERED: ATROPINE SULFATE 0.1 MG/ML 10ML SYR IV PRN (12:48)
[2018-07-07] MEDS ORDERED: ONDANSETRON INJ 2 MG/ML 2 ML VIAL ONE (13:06)
[2018-07-07] MEDS ORDERED: PROPOFOL IV EMULSION 10 MG/ML 20 ML VIAL IV ONE (13:06)
[2018-07-07] MEDS ORDERED: DEXAMETHASONE SOD INJ 4 MG/ML VIAL ONE (13:06)
[2018-07-07] MEDS ORDERED: LIDOCAINE HCL 2% 2 ML VIAL/AMP(20MG/ML) INFIL ONE (13:06)
--- NOTE | 2018-07-07 13:47 | Operative Report ---
Post Operative Report Pre & Post Diagnosis Operation Date: 07/07/18 07:00 Pre-Op Diagnosis: PAINFUL TKA Post-Op Diagnosis: PAINFUL TKA Procedure Operation Date: 07/07/18 07:00 Actual Procedures p Right Incision and Drainage Poly Exchange Knee(Right) poly-change to size 2 x 21 posterior stabilized Legion spacer- Ronald Nicolas DO Surgeon Ronald Nicolas DO Hand Fur Cleaner Venu Blandon Estimated Blood Loss 5 Findings Consistent with Post-Op Diagnosis Patient presents with acute onset right knee swelling and pain on Saturday been seen in the office a week ago for unrelated problems with no knee pain no swelling she relates no recent dental work or anything of any type of infection issues or even specific sickness illness preceding weeks but presented to the emergency room on Saturday with a acutely painful swollen right knee findings at the time of intraoperative surgery revealed this to be a very early infectious issues were gram-positive cocci on the pre-operative aspirate which came back consistent with methicillin sensitive staph aureus the intraoperative synovium was acutely inflamed but not thickened consistent with an acute process not a chronic process subsequently the knee was irrigated washout and poly-was changed Specimens Gram stain cultures right knee fluid Drains Medium bore Hemovac Complications none Disposition Accompanied Patient To Recovery: No Disposition: Recovery Room Indications Patient presents with acute knee effusion with gram-positive cocci methicillin sensitive gram-positive staph aureus within the right knee joint acutely from Saturday Description of Procedure After proper prepping and draping the right lower extremity incision made the region of previous anterior midline incision dissection was carried down to the region of the extensor mechanism medial parapatellar incision was made in the seropurulent fluid was evacuated from the knee joint wound was immediately irrigated drapes were changed and subsequently the utilizing a versa jet a synovectomy superficially was performed poly-have been removed 9 L of sterile saline solution with bacitracin were irrigated through the knee wound after sterile dressing changes and draped changes the wound was irrigated close muscle sterile saline solution small areas of sign of synovitis were excised and a synovectomy was performed a trial poly-was placed in a #21 size to give excellent stability both varus valgus and flexion extension mid flexion subsequently after thorough irrigation debridement lavage utilizing a versa jet for synovectomy only take O hemostasis had been obtained the poly-was replaced and the medial parapatellar was closed #1 Vicryl subcu was closed 2-0 Vicryl skin was closed with skin clips sterile compressive dressings placed medium bore Hemovac in place in the deep wound the patient told procedure well was taken recovery in stable condition operative note dictated by Fidencio please note Venu KISER was necessary for prepping draping retraction wound closure of the fascia subcu and skin was necessary for the case I attest to the content of the Intraoperative Record and any orders documented therein. Any exceptions are noted below.
[2018-07-07] MEDS ORDERED: ePHEDrine sulfate 50 MG/ML SYR ONE (13:54)
[2018-07-07] MEDS: HYDROmorphone INJ 1 MG/ML SYRINGE IV PRN ×5 (14:31→14:55)
--- NOTE | 2018-07-07 14:51 | XRay Report ---
TWO VIEWS RIGHT KNEE CLINICAL HISTORY: Postoperative examination. FINDINGS: AP and crosstable lateral portable views of the right knee are obtained. A right knee arthr oplasty is in near anatomic alignment. There are long tibial and femoral stems. There has been unders urface remodeling of the patella. No acute fracture is seen. There are expected postoperative changes around the knee including skin clips, a surgical drain, soft tissue edema, and subcutaneous gas. IMPRESSION: Expected postoperative changes status post right knee arthroplasty. No acute fracture is seen. Electronically signed by: Herminio Leija M.D. 07/07/2018 2:49 PM
--- NOTE | 2018-07-07 15:09 | Anesthesiology Progress Note ---
Date of Service July 07, 2018 Anesthesia Post Procedure Vital Signs Vital Signs: Temp Pulse Pulse Pulse Resp BP BP 07/07/18 14:57 75 13 107/87 07/07/18 14:55 75 14 07/07/18 14:51 75 13 133/72 07/07/18 14:50 76 17 07/07/18 14:46 74 12 114/79 07/07/18 14:45 74 12 07/07/18 14:41 74 13 119/89 07/07/18 14:40 72 15 07/07/18 14:36 76 16 132/80 07/07/18 14:35 74 14 07/07/18 14:32 74 13 132/80 07/07/18 14:30 75 14 07/07/18 14:27 80 16 132/84 07/07/18 14:25 76 15 07/07/18 14:22 78 16 117/72 07/07/18 14:20 79 14 07/07/18 14:18 75 14 131/94 07/07/18 14:17 36.5 C 80 15 131/94 07/07/18 11:14 36.5 C 68 16 102/69 07/07/18 07:50 37.5 C 74 17 130/80 07/06/18 22:53 37.2 C 76 16 127/79 Pulse Ox 07/07/18 14:57 92 07/07/18 14:55 94 07/07/18 14:51 93 07/07/18 14:50 92 07/07/18 14:46 96 07/07/18 14:45 94 07/07/18 14:41 98 07/07/18 14:40 97 07/07/18 14:36 99 07/07/18 14:35 99 07/07/18 14:32 100 07/07/18 14:30 99 07/07/18 14:27 100 07/07/18 14:25 99 07/07/18 14:22 100 07/07/18 14:20 98 07/07/18 14:18 98 07/07/18 14:17 98 07/07/18 11:14 93 07/07/18 07:50 93 07/06/18 22:53 91 Pain Intensity Right Knee: Pain Intensity: 4 Notes Mental Status: alert / awake / arousable Patient Amnestic to Procedure: Yes Nausea / Vomiting: adequately controlled Pain: adequately controlled Airway Patency, RR, SpO2: stable & adequate BP & HR: stable & adequate Hydration State: stable & adequate Anesthetic Complications: no major complications apparent
--- NOTE | 2018-07-07 15:11 | Hospitalist Progress Note ---
Date of Service July 07, 2018 Assessment & Plan (1) Painful total knee replacement, right: 53 y/o F Hx HTN, ADHD, GERD, smoker, chronic neck pain/radiculopathy, depression/anxiety. Presenting with pain in her R knee. She has a history of TKA 2007, explantation due to infection and revision 2010. She denies fevers or rigors presently. s/p incision/drainage and polyexchange today less pain now vitals stable post op continue on Cefazolin, Vancomycin 2) HTN - cont Toprol, BP stable 3) Neuropathy - cont Gabapentin 4) GERD - cont Omeprazole 5) Depression - cont Sertraline (2) Hypertension: (3) GERD (gastroesophageal reflux disease): (4) Depression: (5) Neuropathy: Subjective patient seen prior to going to OR c/o severe pain in left knee, swelling reviewed labs, reviewed vitals, okay for OR Physical Exam 2 Vital Signs (Past 24 Hours): Last Vital Signs Temp 36.5 C 07/07/18 14:17 Pulse 75 07/07/18 14:57 Resp 13 07/07/18 14:57 BP 107/87 07/07/18 14:57 Pulse Ox 92 07/07/18 14:57 Constitutional: WD/WN, vitals as above + acute distress (mild distress due to knee pain) Eyes: PERRL, conjunctivae normal, anicteric sclerae ENMT: external ear and nose normal, oropharynx normal Neck: trachea midline, no thyromegaly Respiratory: normal respiratory effort, lungs clear to auscultation Cardiovascular: RRR, no murmur, no edema Gastrointestinal (Abdomen): normal bowel sounds, soft, nontender, no hepatosplenomegaly Musculoskeletal: no cyanosis or clubbing, extremities motor strength 5/5 Extremities: + joint enlargement (right knee swollen and tender) Skin: no rashes, warm and dry Neurologic: patellar DTR's 2+ bilat, sensation intact and PERRL, EOMI, accommodation nl, no face palsy, no dysarthria Psychiatric: A+Ox3, euthymic affect Lymphatic: no cervical or axillary lymphadenopathy Results & Data Laboratory Results Laboratory Results - last 24 hr 07/05/18 07/07/18 07/07/18 19:50 05:57 05:57 WBC 11.75 H RBC 3.60 L Hgb 11.5 L Hct 35.7 L MCV 99.2 MCH 31.9 MCHC 32.2 RDW Std Deviation 47.8 H RDW Coeff of [place] 13.2 Plt Count 213 MPV 9.6 Immature Gran % (Auto) 0.2 Neut % (Auto) 74.5 Lymph % (Auto) 11.6 [place] % (Auto) 12.6 Eos % (Auto) 0.9 Baso % (Auto) 0.2 Immature Gran # (Auto) 0.02 Neut # (Auto) 8.77 H Lymph # (Auto) 1.36 [place] # (Auto) 1.48 H Eos # (Auto) 0.10 Baso # (Auto) 0.02 Sodium 135 L Potassium 3.7 Chloride 103 Carbon Dioxide 26 Anion Gap 7.0 BUN 11 Creatinine 0.68 Est Cr Clr Drug Dosing 89.6 Est GFR ( Amer) 115.7 Est GFR (Non-Af Amer) 99.9 BUN/Creatinine Ratio 16.1 Glucose 99 Calcium 8.7 Synovial Crystals Vancomycin Trough 07/07/18 11:48 WBC RBC Hgb Hct MCV MCH MCHC RDW Std Deviation RDW Coeff of Jan Plt Count MPV Immature Gran % (Auto) Neut % (Auto) Lymph % (Auto) [place] % (Auto) Eos % (Auto) Baso % (Auto) Immature Gran # (Auto) Neut # (Auto) Lymph # (Auto) [place] # (Auto) Eos # (Auto) Baso # (Auto) Sodium Potassium Chloride Carbon Dioxide Anion Gap BUN Creatinine Est Cr Clr Drug Dosing Est GFR ( Amer) Est GFR (Non-Af Amer) BUN/Creatinine Ratio Glucose Calcium Synovial Crystals Vancomycin Trough 5.8 Medications Administered Current Inpatient Medications Al Hydrox/Mg Hydrox/Simethicone (Maalox) 15 ml PO Q4H PRN PRN Reason: Heartburn Stop: 08/06/18 15:24 Aspirin (Ecotrin Ectab) 81 mg PO BID ANGELIA Stop: 08/06/18 20:59 Last Admin: 07/07/18 20:41 Dose: 81 mg Diphenhydramine HCl (Benadryl) 25 mg PO Q8H PRN PRN Reason: Itching Stop: 08/04/18 16:44 Docusate Sodium (Colace) 100 mg PO BID ANGELIA Stop: 08/06/18 20:59 Last Admin: 07/07/18 20:41 Dose: 100 mg Gabapentin (Neurontin) 600 mg PO TID [facility] Stop: 08/04/18 20:59 Last Admin: 07/07/18 20:41 Dose: 600 mg Sodium Chloride (Nss 1000ml) 1,000 mls @ 100 mls/hr IV .Q10H [facility] Stop: 07/08/18 06:00 Last Admin: 07/07/18 16:36 Dose: 100 mls/hr Cefazolin Sodium (Ancef 1000mg) 1,000 mg in 7.5 mls @ 2.5 mls/min IV Q8H [facility]; Protocol Stop: 08/18/18 19:59 Last Admin: 07/07/18 20:41 Dose: 2.5 mls/min Magnesium Hydroxide (Milk Of Magnesia) 30 ml PO Q6H PRN PRN Reason: Constipation Stop: 08/06/18 15:24 Methylphenidate HCl (Ritalin) 10 mg PO BID@1200,1600 [facility] Stop: 07/20/18 11:59 Last Admin: 07/07/18 17:07 Dose: Not Given Methylphenidate HCl (Ritalin) 20 mg PO QAM [facility] Stop: 07/20/18 08:59 Last Admin: 07/07/18 10:12 Dose: Not Given Metoprolol Succinate (Toprol Xl) 100 mg PO DAILY [facility] Stop: 08/05/18 08:59 Last Admin: 07/07/18 09:30 Dose: 100 mg Morphine Sulfate (Morphine Sulfate) 4 mg IV Q3H PRN PRN Reason: Pain Stop: 07/19/18 16:51 Last Admin: 07/07/18 18:38 Dose: 4 mg Naloxone HCl (Narcan) 0.4 mg IV ONCE PRN PRN Reason: Sedation Stop: 08/05/18 09:15 Ondansetron HCl (Zofran) 4 mg IV Q6H PRN PRN Reason: Nausea/Vomiting Stop: 08/04/18 16:44 Oxycodone HCl (Roxicodone Immediate Rel) 5 mg PO Q4H PRN PRN Reason: Pain Stop: 07/19/18 16:51 Last Admin: 07/06/18 18:34 Dose: 5 mg Oxycodone HCl (Roxicodone Immediate Rel) 10 mg PO Q4H PRN PRN Reason: Pain Stop: 07/19/18 16:51 Last Admin: 07/07/18 21:01 Dose: 10 mg Oxycodone HCl (Oxycontin) 10 mg PO BID [facility] Stop: 07/20/18 09:14 Last Admin: 07/07/18 20:43 Dose: 10 mg Pantoprazole Sodium (Protonix) 40 mg PO DAILYBB [facility] Stop: 08/05/18 06:29 Last Admin: 07/07/18 05:15 Dose: 40 mg Sennosides (Senokot) 17.2 mg PO HS [facility] Stop: 08/06/18 20:59 Last Admin: 07/07/18 20:41 Dose: 17.2 mg Sertraline HCl (Zoloft) 100 mg PO QAM [facility] Stop: 08/05/18 08:59 Last Admin: 07/07/18 09:29 Dose: 100 mg
[2018-07-07] MEDS ORDERED: MAGNESIUM HYDROXIDE SUSP 30 ML UDC PO PRN (15:25)
[2018-07-07] MEDS ORDERED: ALUMINUM/MAGNESIUM SUSP 30 ML UDC PO PRN (15:25)
[2018-07-07] MEDS: SODIUM CHLORIDE 0.9% 1000ML 1,000 ML IV SCH (16:36)
[2018-07-07] MEDS: VANCOMYCIN HCL 1,000 MG in SODIUM CHLORIDE 0.9% 250 ML IV SCH (16:57)
[2018-07-07] MEDS: DOCUSATE SODIUM 100 MG CAP PO SCH (20:41)
[2018-07-07] MEDS: SENNA 8.6 MG TAB PO SCH (20:41)
[2018-07-07] MEDS: CEFAZOLIN 1000MG 1,000 MG/7.5 ML SYR IV SCH (20:41)
[2018-07-07] MEDS: ASPIRIN 81 MG ECTAB PO SCH (20:41)
[2018-07-08] MEDS: OXYCODONE HCL IR 5 MG TAB (IMMEDIATE RELEASE) PO PRN ×5 (02:12→22:07)
[2018-07-08] MEDS: SODIUM CHLORIDE 0.9% 1000ML 1,000 ML IV SCH (02:15)
[2018-07-08] MEDS: CEFAZOLIN 1000MG 1,000 MG/7.5 ML SYR IV SCH ×3 (04:13→20:20)
[2018-07-08] MEDS: MoRPHine SULFATE 4 MG/ML 1 ML CARP\\VIAL IV PRN ×4 (05:25→23:43)
[2018-07-08] MEDS: PANTOprazole 40 MG TAB PO SCH (05:55)
[2018-07-08] MEDS: GABAPENTIN 600 MG TAB PO SCH ×3 (07:36→20:19)
[2018-07-08] MEDS: SERTRALINE HCL 100 MG TABLET PO SCH (07:36)
[2018-07-08] MEDS: METOPROLOL SUCC 50MG EXT REL TAB PO SCH (07:36)
[2018-07-08] MEDS: DOCUSATE SODIUM 100 MG CAP PO SCH ×2 (07:37→20:19)
[2018-07-08] MEDS: ASPIRIN 81 MG ECTAB PO SCH ×2 (07:37→20:19)
--- NOTE | 2018-07-08 08:03 | Anesthesiology Progress Note ---
Date of Service July 08, 2018 Anesthesia Post Procedure Vital Signs Vital Signs: Temp Pulse Pulse Resp BP BP Pulse Ox 07/08/18 07:17 36.7 C 69 16 161/98 H 94 07/08/18 03:04 37.2 C 70 16 135/80 94 07/07/18 23:00 36.9 C 74 16 134/82 91 07/07/18 18:24 36.8 C 70 18 117/74 91 07/07/18 17:23 36.5 C 71 16 138/89 90 07/07/18 16:31 36.5 C 70 18 131/85 91 07/07/18 15:56 36.7 C 71 14 117/77 92 07/07/18 15:28 36.8 C 74 14 102/69 92 07/07/18 14:57 75 13 107/87 92 07/07/18 14:55 75 14 94 07/07/18 14:51 75 13 133/72 93 07/07/18 14:50 76 17 92 07/07/18 14:46 74 12 114/79 96 07/07/18 14:45 74 12 94 07/07/18 14:41 74 13 119/89 98 07/07/18 14:40 72 15 97 07/07/18 14:36 76 16 132/80 99 07/07/18 14:35 74 14 99 07/07/18 14:32 74 13 132/80 100 07/07/18 14:30 75 14 99 07/07/18 14:27 80 16 132/84 100 07/07/18 14:25 76 15 99 07/07/18 14:22 78 16 117/72 100 07/07/18 14:20 79 14 98 07/07/18 14:18 75 14 131/94 98 07/07/18 14:17 36.5 C 80 15 131/94 98 07/07/18 11:14 36.5 C 68 16 102/69 93 Pain Intensity Right Knee: Pain Intensity: 4 Notes Mental Status: alert / awake / arousable and participated in evaluation Patient Amnestic to Procedure: Yes Nausea / Vomiting: adequately controlled Pain: adequately controlled Airway Patency, RR, SpO2: stable & adequate BP & HR: stable & adequate Hydration State: stable & adequate Anesthetic Complications: no major complications apparent
[2018-07-08 08:10] LABS: Basophils # (auto) 0.01 K/uL (0-0.2); Basophils % (auto) 0.1 %; Eosinophils # (auto) 0.02 K/uL (0-0.5); Eosinophils % (auto) 0.2 %; Hematocrit (blood only) 32.4 % (37-47); Hemoglobin 10.6 g/dL (12.0-16.0); Immature Granulocytes # (auto) 0.03 K/uL (0.00-0.02); Immature Granulocytes % (auto) 0.3 %; Lymphocytes # (auto) 1.86 K/uL (1.2-3.4); Lymphocytes % (auto) 16.6 %; Mean Corpuscular Hgb Conc 32.7 g/dL (32-36); Mean Corpuscular Volume 97.9 fL (80-100); Mean Platelet Volume 9.5 fL (7.4-10.4); Monocytes # (auto) 1.63 K/uL (0.11-0.59); Monocytes % (auto) 14.5 %; Neutrophils # (auto) 7.67 K/uL (1.4-6.5); Neutrophils % (auto) 68.3 %; Platelet Count 241 K/uL (130-400); RDW Standard Deviation 46.2 fL (36.4-46.3); Red Blood Count 3.31 M/uL (4.2-5.4); White Blood Count 11.22 K/uL (4.8-10.8)
[2018-07-08 08:27] LABS: BUN Creatinine Ratio 17.6 (10-20); Calcium 8.6 mg/dl (8.5-10.1); Creatinine Clr Calc Pharmacy 84.6 ml/min; Est GFR (African American) 110.8; Est GFR (Non-African American) 95.6; Potassium 3.9 mmol/L (3.5-5.1)
[2018-07-08] MEDS: OXYCODONE HCL 10 MG TABCR (OXYCONTIN) PO SCH ×2 (08:59→20:21)
[2018-07-08] MEDS: METHYLPHENIDATE HCL 10 MG TABLET PO SCH ×3 (08:59→16:09)
[2018-07-08] MEDS: KETOROLAC 30 MG/ML VIAL IV SCH ×3 (09:00→20:20)
--- NOTE | 2018-07-08 09:42 | Orthopedic Progress Note ---
Date of Service July 08, 2018 Assessment & Plan (1) Infection of total right knee replacement: POD #1 s/p Right knee arthrotomy, Incision and Drainage Poly Exchange Knee poly-change to size 2 x 21 posterior stabilized knee aspiration preliminary staph aureus, awaiting sensitivities consult ID cont IV Vanco pending further sensitivities, await ID recommendations Increased post op pain, will consult [facility] for further recommendations PT- WBAT, cont RICE DVT proph with NISHANT/SCD/ASA (2) Painful total knee replacement, right: Subjective POD #1 s/p Right Incision and Drainage Poly Exchange Knee(Right) poly-change to size 2 x 21 posterior stabilized having increased pain this am, was ordered Toradol x 1 with mild improvement in her pain. having a difficult time doing PT due to her pain Respiratory: no cough and no dyspnea Cardiovascular: no chest pain Physical Exam 2 Vital Signs (Past 24 Hours): Last Vital Signs Temp 36.7 C 07/08/18 07:17 Pulse 69 07/08/18 07:17 Resp 16 07/08/18 07:17 BP 161/98 H 07/08/18 07:17 Pulse Ox 94 07/08/18 07:17 Musculoskeletal: NVDI, calf SNT, negative dorothea sign. DP palpable, able to wiggle toes/ankle movement without difficulty. dressing clean dry and intact. Hemovac Vital Signs Temp 36.7 C 07/08/18 07:17 Pulse 69 07/08/18 07:17 Resp 16 07/08/18 07:17 BP 161/98 H 07/08/18 07:17 Pulse Ox 94 07/08/18 07:17 Intake & Output 07/07/18 07/08/18 07/08/18 18:59 06:59 18:59 Intake Total 850 / 850 1265 / 1265 Output Total 530 / 530 1050 / 1050 Balance 320 / 320 215 / 215 Weight 69 kg Intake: IV 965 / 965 Nss 1000ML 1,0 00 ml @ 100 mls/ 965 / 965 hr IV .Q10H SC H Rx#:[id number] IV Perioperative 800 / 800 Oral 50 / 50 300 / 300 Output: Urine 525 / 525 1000 / 1000 Estimated Blood Loss 5 / 5 Drain Output 50 / 50 Right Knee 50 / 50 Laboratory Results WBC 11.22 K/uL (4.8-1 0.8) H 07/08/18 07:55 RBC 3.31 M/uL (4.2-5. 4) L 07/08/18 07:55 Hgb 10.6 g/dL (12.0-1 6.0) L 07/08/18 07:55 Hct 32.4 % (37-47) L 07/08/18 07:55 MCV 97.9 fL (80-100) 07/08/18 07:55 MCH 32.0 pg (25-34) 07/08/18 07:55 MCHC 32.7 g/dL (32-36) 07/08/18 07:55 RDW Std Deviation 46.2 fL (36.4-46. 3) 07/08/18 07:55 RDW Coeff of Jan 13.0 % (11.5-14.5 ) 07/08/18 07:55 Plt Count 241 K/uL (130-400 ) 07/08/18 07:55 MPV 9.5 fL (7.4-10.4) 07/08/18 07:55 Immature Gran % (A uto) 0.3 % 07/08/18 07:55 Neut % (Auto) 68.3 % 07/08/18 07:55 Lymph % (Auto) 16.6 % 07/08/18 07:55 [place] % (Auto) 14.5 % 07/08/18 07:55 Eos % (Auto) 0.2 % 07/08/18 07:55 Baso % (Auto) 0.1 % 07/08/18 07:55 Immature Gran # (A uto) 0.03 K/uL (0.00-0 .02) H 07/08/18 07:55 Neut # (Auto) 7.67 K/uL (1.4-6. 5) H 07/08/18 07:55 Lymph # (Auto) 1.86 K/uL (1.2-3. 4) 07/08/18 07:55 [place] # (Auto) 1.63 K/uL (0.11-0 .59) H 07/08/18 07:55 Eos # (Auto) 0.02 K/uL (0-0.5) 07/08/18 07:55 Baso # (Auto) 0.01 K/uL (0-0.2) 07/08/18 07:55 ESR 32 mm/hr (0-21) H 07/05/18 15:25 PT 9.9 Seconds (9.0- 12.0) 07/05/18 15:25 INR 1.0 (0.9-1.1) 07/05/18 15:25 Sodium 138 mmol/L (136-1 45) 07/08/18 07:55 Potassium 3.9 mmol/L (3.5-5 .1) 07/08/18 07:55 Chloride 106 mmol/L (98-10 7) 07/08/18 07:55 Carbon Dioxide 26 mmol/L (21-32) 07/08/18 07:55 Anion Gap 7.0 (3-11) 07/08/18 07:55 BUN 13 mg/dl (7-18) 07/08/18 07:55 Creatinine 0.72 mg/dl (0.6-1 .2) 07/08/18 07:55 Est Cr Clr Drug Do sing 84.6 ml/min 07/08/18 07:55 Est GFR ( A mary) 110.8 07/08/18 07:55 Est GFR (Non-Af Am er) 95.6 07/08/18 07:55 BUN/Creatinine Rat io 17.6 (10-20) 07/08/18 07:55 Glucose 117 mg/dl (70-99) H 07/08/18 07:55 POC Lactic Acid Ve n 1.50 mmol/L (0.90 -1.70) 07/05/18 15:33 Calcium 8.6 mg/dl (8.5-10 .1) 07/08/18 07:55 Total Bilirubin 0.3 mg/dl (0.2-1) 07/05/18 15:25 AST 10 U/L (15-37) L 07/05/18 15:25 ALT 16 U/L (12-78) 07/05/18 15:25 Alkaline Phosphata se 87 U/L (45-117) 07/05/18 15:25 C-Reactive Protein 7.89 mg/dl (0-0.2 9) H 07/05/18 15:25 Total Protein 7.6 gm/dl (6.4-8. 2) 07/05/18 15:25 Albumin 3.7 gm/dl (3.4-5. 0) 07/05/18 15:25 Globulin 3.9 gm/dl (2.5-4. 0) 07/05/18 15:25 Albumin/Globulin R atio 0.9 (0.9-2) 07/05/18 15:25 Procalcitonin < 0.05 ng/ml (0-0 .5) 07/05/18 15:25 Urine Color Yellow 07/05/18 20:36 Urine Appearance Clear (Clear) 07/05/18 20:36 Urine pH 5.0 (4.5-7.5) 07/05/18 20:36 Ur Specific Gravit y 1.034 (1.000-1.0 30) H 07/05/18 20:36 Urine Protein Negative (Negati ve) 07/05/18 20:36 Urine Glucose (UA) Negative (Negati ve) 07/05/18 20:36 Urine Ketones Negative (Negati ve) 07/05/18 20:36 Urine Blood Negative (Negati ve) 07/05/18 20:36 Urine Nitrite Negative (Negati ve) 07/05/18 20:36 Urine Bilirubin Negative (Negati ve) 07/05/18 20:36 Urine Urobilinogen Negative (Negati ve) 07/05/18 20:36 Ur Leukocyte Sue ase Negative (Negati ve) 07/05/18 20:36 Fluid Source Cancelled 07/05/18 19:50 Fluid Color Cancelled 07/05/18 19:50 Fluid Appearance Cancelled 07/05/18 19:50 Fluid WBC Cancelled 07/05/18 19:50 Fluid RBC Cancelled 07/05/18 19:50 Fluid Polynuclear WBCs Cancelled 07/05/18 19:50 Fld Polynuclear WB Cs % Cancelled 07/05/18 19:50 Fluid Mononuclear WBCs Cancelled 07/05/18 19:50 Fld Mononuclear WB Cs % Cancelled 07/05/18 19:50 Fluid Other Cells % Cancelled 07/05/18 19:50 Synovial Source KNEE 07/05/18 19:50 Synovial Color STRAW 07/05/18 19:50 Synovial Appearanc e CLOUDY 07/05/18 19:50 Synovial WBC 30214 /uL (0-200) H 07/05/18 19:50 Synovial RBC 4000 /uL 07/05/18 19:50 Synovial Polynucle ar % 76.2 % 07/05/18 19:50 Synovial Mononucle ar % 23.8 % 07/05/18 19:50 Synovial Crystals 07/05/18 19:50 Vancomycin Trough 5.8 mcg/ml (See C omment) 07/07/18 11:48 Bld Cult Staph aur eus PCR Positive (Negati ve) A 07/06/18 15:25 Blood Culture MRSA PCR Negative (Negati ve) 07/06/18 15:25 Microbiology 07/07/18 13:00 Knee,Right Gram Stain - Final 07/05/18 15:25 Blood Blood Culture - Preliminary Staphylococcus aureus 07/05/18 19:50 Joint Fluid/Space (Synovial) Gram Stain - Final 07/05/18 19:50 Joint Fluid/Space (Synovial) Aerobic and Anaerobic Culture - Preliminary Staphylococcus aureus 07/05/18 19:50 Tissue,Undefined Acid Fast Bacilli Smear - Final 07/05/18 16:19 Blood Blood Culture - Preliminary No growth to date. 07/05/18 20:23 Knee,Right Fungal Smear - Final
--- NOTE | 2018-07-08 11:06 | Infectious Disease Consult ---
Date of Consultation July 08, 2018 Assessment & Plan (1) Infection of total right knee replacement: Patient with infected right TKA with methicillin sensitive staph aureus. Patient will require 6 weeks of IV antibiotics, would recommend IV ceftriaxone 2 g daily to allow easy as outpatient therapy. Would also add oral rifampin 600 mg daily given retained hardware. Patient will likely require lifelong suppressive therapy after IV treatment completed. Will follow. (2) MSSA (methicillin susceptible Staphylococcus aureus) infection: History of Present Illness Reason for Consultation: Right TKA infection Attending Physician: Wes Hager DO History of Present Illness 53-year-old female known to me from treatment of infected TKA in 2010, who now presents with relatively sudden onset of recurrent right knee pain and swelling. Had aspiration done with findings of infection, and patient now status post debridement with poly-exchange. Cultures growing a methicillin sensitive staph aureus. Patient currently on IV cefazolin. No report of fever. Pain currently 6 out of 10 in intensity right knee. No recent skin infection the patient recalls. Allergies Allergy/AdvReac Type Severity Reaction Status Date / Time enoxaparin Allergy Intermediate RASH Verified 07/07/18 11:14 Sulfa (Sulfonamide Allergy Unknown HIVES TO Verified 07/07/18 11:14 Antibiotics) SULFA DRUGS Home Medications Home Medications Medication Instructions Recorded Confirmed Type aspirin 650 mg PO Q6H 07/05/18 07/05/18 History gabapentin [Neurontin] 600 mg PO TID 07/05/18 07/05/18 History methylphenidate HCl [Ritalin] 10 mg PO BID 07/05/18 07/05/18 History methylphenidate HCl [Ritalin] 20 mg PO QAM 07/05/18 07/05/18 History metoprolol succinate [Toprol XL] 100 mg PO DAILY 07/05/18 07/05/18 History omeprazole 20 mg PO DAILYBB 07/05/18 07/05/18 History sertraline [Zoloft] 100 mg PO QAM 07/05/18 07/05/18 History Patient History Medical History ADHD Anxiety Chronic neck pain with radiculopathy Depression GERD (gastroesophageal reflux disease) Hypertension Surgical History Total knee replacement status TKA 2007, Revision 2010 secondary to infection Social History Current Living Situation: Alone Other Information That Helps Us Care for You: No Feels Safe at Home: Yes Safety Concerns: Feels Safe At This Time Smoking Status: Current every day smoker Tobacco Type: cigarettes Cigarettes per Day: 10 Do You Dip or Chew Tobacco: No Hx Alcohol Use: Yes Alcohol Intake Frequency: other Hx Substance Use: No Beliefs That Will Affect Care: None Communication Ability: Effective Review of Systems All systems were reviewed and are negative except as per HPI Physical Exam 2 Vital Signs (Past 24 Hours): Last Vital Signs Temp 36.7 C 07/08/18 07:17 Pulse 69 07/08/18 07:17 Resp 16 07/08/18 07:17 BP 161/98 H 07/08/18 07:17 Pulse Ox 94 07/08/18 07:17 Constitutional: WD/WN, vitals as above comfortable; no acute distress Eyes: PERRL, conjunctivae normal, anicteric sclerae ENMT: external ear and nose normal, oropharynx normal Neck: trachea midline, no thyromegaly neck nontender Respiratory: normal respiratory effort, lungs clear to auscultation normal percussion; does not use accessory muscles Cardiovascular: Rate/Rhythm: regular rate and regular rhythm Heart Sounds: normal S1 and normal S2; no gallop, no murmur and no cardiac rub Vessels: normal peripheral pulses; no JVD Gastrointestinal (Abdomen): normal bowel sounds, soft, nontender, no hepatosplenomegaly Musculoskeletal: no cyanosis or clubbing, extremities motor strength 5/5 Spine: thoracic spine normal to inspection and lumbar spine normal to inspection ; no cervical spinal tenderness Skin: no rashes, warm and dry normal turgor Surgical dressing intact right knee Neurologic: moves all extremities and awake; no focal motor deficits Psychiatric: A+Ox3, euthymic affect Orientation: cooperative Lymphatic: no cervical or axillary lymphadenopathy no inguinal lymphadenopathy Results & Data Laboratory Results Short CBC 07/08/18 Range/Units 07:55 WBC 11.22 H (4.8-10.8) K/uL Hgb 10.6 L (12.0-16.0) g/dL Hct 32.4 L (37-47) % Plt Count 241 (130-400) K/uL BMP 07/08/18 07:55 Sodium 138 Potassium 3.9 Chloride 106 Carbon Dioxide 26 BUN 13 Creatinine 0.72 Glucose 117 H Calcium 8.6 Diagnostic Findings Microbiology 07/07/18 13:00 Knee,Right Gram Stain - Final 07/07/18 13:00 Knee,Right Aerobic and Anaerobic Culture - Preliminary Staphylococcus aureus 07/05/18 15:25 Blood Blood Culture - Preliminary Staphylococcus aureus 07/05/18 19:50 Joint Fluid/Space (Synovial) Gram Stain - Final 07/05/18 19:50 Joint Fluid/Space (Synovial) Aerobic and Anaerobic Culture - Preliminary Staphylococcus aureus 07/05/18 19:50 Tissue,Undefined Acid Fast Bacilli Smear - Final 07/05/18 16:19 Blood Blood Culture - Preliminary No growth to date. 07/05/18 20:23 Knee,Right Fungal Smear - Final TWO VIEWS RIGHT KNEE CLINICAL HISTORY: Postoperative examination. FINDINGS: AP and crosstable lateral portable views of the right knee are obtained. A right knee arthroplasty is in near anatomic alignment. There are long tibial and femoral stems. There has been undersurface remodeling of the patella. No acute fracture is seen. There are expected postoperative changes around the knee including skin clips, a surgical drain, soft tissue edema, and subcutaneous gas. IMPRESSION: Expected postoperative changes status post right knee arthroplasty. No acute fracture is seen.
--- NOTE | 2018-07-08 15:40 | Hospitalist Progress Note ---
Date of Service July 08, 2018 Assessment & Plan (1) Painful total knee replacement, right: 53 y/o F Hx HTN, ADHD, GERD, smoker, chronic neck pain/radiculopathy, depression/anxiety. Presenting with pain in her R knee. She has a history of TKA 2007, explantation due to infection and revision 2010. She denies fevers or rigors presently. s/p incision/drainage and polyexchange on 07/07, tolerated well less pain now continue Vancomyin IV ID following, will wait for final culture results to determine terminal manager antibiotics plans to go home with home PT 2) HTN - continue Toprol, BP stable 3) Neuropathy - cont Gabapentin 4) GERD - cont Omeprazole 5) Depression - cont Sertraline will sign off patient today, she is stable medically continue home medications on discharge defer to ID for terminal manager IV antibiotic recommendations (2) Hypertension: (3) GERD (gastroesophageal reflux disease): (4) Depression: (5) Neuropathy: Subjective patient doing well, pain in right knee but tolerable ambulating with PT and OT no fever, reviewed labs, Hb stable at 10 vitals stable working on d/c plan to go home with home PT Review of Systems All systems reviewed & are unremarkable except as noted in HPI & below Musculoskeletal: + joint pain (right knee) Physical Exam 2 Vital Signs (Past 24 Hours): Last Vital Signs Temp 37.2 C 07/08/18 15:17 Pulse 81 07/08/18 15:17 Resp 18 07/08/18 15:17 BP 152/84 H 07/08/18 15:17 Pulse Ox 94 07/08/18 15:17 Constitutional: WD/WN, vitals as above + acute distress (mild distress due to knee pain) Eyes: PERRL, conjunctivae normal, anicteric sclerae ENMT: external ear and nose normal, oropharynx normal Neck: trachea midline, no thyromegaly Respiratory: normal respiratory effort, lungs clear to auscultation Cardiovascular: RRR, no murmur, no edema Gastrointestinal (Abdomen): normal bowel sounds, soft, nontender, no hepatosplenomegaly Musculoskeletal: no cyanosis or clubbing, extremities motor strength 5/5 Extremities: + limited ROM of extremities (right knee, spacer in place) and + joint enlargement (less swelling and pain in right knee today) Skin: no rashes, warm and dry Neurologic: patellar DTR's 2+ bilat, sensation intact and PERRL, EOMI, accommodation nl, no face palsy, no dysarthria Psychiatric: A+Ox3, euthymic affect Lymphatic: no cervical or axillary lymphadenopathy Results & Data Laboratory Results Laboratory Results - last 24 hr 07/08/18 07/08/18 07:55 07:55 WBC 11.22 H RBC 3.31 L Hgb 10.6 L Hct 32.4 L MCV 97.9 MCH 32.0 MCHC 32.7 RDW Std Deviation 46.2 RDW Coeff of Jan 13.0 Plt Count 241 MPV 9.5 Immature Gran % (Auto) 0.3 Neut % (Auto) 68.3 Lymph % (Auto) 16.6 [place] % (Auto) 14.5 Eos % (Auto) 0.2 Baso % (Auto) 0.1 Immature Gran # (Auto) 0.03 H Neut # (Auto) 7.67 H Lymph # (Auto) 1.86 [place] # (Auto) 1.63 H Eos # (Auto) 0.02 Baso # (Auto) 0.01 Sodium 138 Potassium 3.9 Chloride 106 Carbon Dioxide 26 Anion Gap 7.0 BUN 13 Creatinine 0.72 Est Cr Clr Drug Dosing 84.6 Est GFR ( Amer) 110.8 Est GFR (Non-Af Amer) 95.6 BUN/Creatinine Ratio 17.6 Glucose 117 H Calcium 8.6 Medications Administered Current Inpatient Medications Al Hydrox/Mg Hydrox/Simethicone (Maalox) 15 ml PO Q4H PRN PRN Reason: Heartburn Stop: 08/06/18 15:24 Aspirin (Ecotrin Ectab) 81 mg PO BID [facility] Stop: 08/06/18 20:59 Last Admin: 07/08/18 07:37 Dose: 81 mg Diphenhydramine HCl (Benadryl) 25 mg PO Q8H PRN PRN Reason: Itching Stop: 08/04/18 16:44 Docusate Sodium (Colace) 100 mg PO BID [facility] Stop: 08/06/18 20:59 Last Admin: 07/08/18 07:37 Dose: 100 mg Gabapentin (Neurontin) 600 mg PO TID [facility] Stop: 08/04/18 20:59 Last Admin: 07/08/18 13:24 Dose: 600 mg Cefazolin Sodium (Ancef 1000mg) 1,000 mg in 7.5 mls @ 2.5 mls/min IV Q8H [facility]; Protocol Stop: 08/18/18 19:59 Last Admin: 07/08/18 12:00 Dose: 2.5 mls/min Ketorolac Tromethamine (Toradol) 30 mg IV Q6H [facility] Stop: 07/09/18 03:01 Last Admin: 07/08/18 14:56 Dose: 30 mg Ketorolac Tromethamine (Toradol) 30 mg IV Q6H PRN PRN Reason: Pain Stop: 07/14/18 09:00 Magnesium Hydroxide (Milk Of Magnesia) 30 ml PO Q6H PRN PRN Reason: Constipation Stop: 08/06/18 15:24 Methylphenidate HCl (Ritalin) 10 mg PO BID@1200,1600 [facility] Stop: 07/20/18 11:59 Last Admin: 07/08/18 11:59 Dose: 10 mg Methylphenidate HCl (Ritalin) 20 mg PO QAM [facility] Stop: 07/20/18 08:59 Last Admin: 07/08/18 08:59 Dose: 20 mg Metoprolol Succinate (Toprol Xl) 100 mg PO DAILY [facility] Stop: 08/05/18 08:59 Last Admin: 07/08/18 07:36 Dose: 100 mg Morphine Sulfate (Morphine Sulfate) 4 mg IV Q3H PRN PRN Reason: Pain Stop: 07/19/18 16:51 Last Admin: 07/08/18 05:25 Dose: 4 mg Naloxone HCl (Narcan) 0.4 mg IV ONCE PRN PRN Reason: Sedation Stop: 08/05/18 09:15 Ondansetron HCl (Zofran) 4 mg IV Q6H PRN PRN Reason: Nausea/Vomiting Stop: 08/04/18 16:44 Oxycodone HCl (Roxicodone Immediate Rel) 5 mg PO Q4H PRN PRN Reason: Pain Stop: 07/19/18 16:51 Last Admin: 07/06/18 18:34 Dose: 5 mg Oxycodone HCl (Roxicodone Immediate Rel) 10 mg PO Q4H PRN PRN Reason: Pain Stop: 07/19/18 16:51 Last Admin: 07/08/18 11:53 Dose: 10 mg Oxycodone HCl (Oxycontin) 10 mg PO BID [facility] Stop: 07/20/18 09:14 Last Admin: 07/08/18 08:59 Dose: 10 mg Pantoprazole Sodium (Protonix) 40 mg PO DAILYBB [facility] Stop: 08/05/18 06:29 Last Admin: 07/08/18 05:55 Dose: 40 mg Sennosides (Senokot) 17.2 mg PO HS [facility] Stop: 08/06/18 20:59 Last Admin: 07/07/18 20:41 Dose: 17.2 mg Sertraline HCl (Zoloft) 100 mg PO QAM [facility] Stop: 08/05/18 08:59 Last Admin: 07/08/18 07:36 Dose: 100 mg
[2018-07-08] MEDS: SENNA 8.6 MG TAB PO SCH (20:19)
[2018-07-09] MEDS: KETOROLAC 30 MG/ML VIAL IV SCH (02:08)
[2018-07-09] MEDS: OXYCODONE HCL IR 5 MG TAB (IMMEDIATE RELEASE) PO PRN ×2 (02:09→06:23)
[2018-07-09] MEDS: MoRPHine SULFATE 4 MG/ML 1 ML CARP\\VIAL IV PRN (04:31)
[2018-07-09] MEDS: CEFAZOLIN 1000MG 1,000 MG/7.5 ML SYR IV SCH ×3 (04:32→20:43)
[2018-07-09] MEDS: PANTOprazole 40 MG TAB PO SCH (06:24)
[2018-07-09] MEDS: HYDROmorphone INJ 0.5 MG/0.5 ML SYR IV PRN ×6 (08:48→23:00)
[2018-07-09] MEDS: METHYLPHENIDATE HCL 10 MG TABLET PO SCH ×3 (08:48→15:51)
[2018-07-09] MEDS: SERTRALINE HCL 100 MG TABLET PO SCH (08:52)
[2018-07-09] MEDS: ASPIRIN 81 MG ECTAB PO SCH ×2 (08:52→20:44)
[2018-07-09] MEDS: DOCUSATE SODIUM 100 MG CAP PO SCH ×2 (08:52→20:44)
--- NOTE | 2018-07-09 09:03 | Pain Management Consultation ---
Date of Consultation July 09, 2018 Assessment & Plan (1) MSSA (methicillin susceptible Staphylococcus aureus) infection: Present on Admission?: Yes (2) Infection of total right knee replacement: Present on Admission?: Yes (3) Painful total knee replacement, right: Present on Admission?: Yes (4) Tobacco abuse: 1. Recommend discontinuation of OxyContin 2. Will transition her OxyIR to Percocet 10/325 mg 1 tablet p.o. every 4 hours for breakthrough pain hopefully to augment pain control with acetaminophen. 3. Will discontinue IV morphine and transition to IV hydromorphone 0.5 mg every 2 hours for as needed breakthrough pain. She was encouraged to utilize immediately prior to any planned PT activities. 4. Will progress gabapentin dose of 900 mg 3 times daily 5. Potentially consider a transition from sertraline to Cymbalta versus Effexor in the outpatient setting in an attempt to augment pain control 6. Consider increased frequency of utilization of Toradol pending response to above Thank you for allowing us to participate in the care of Mrs. Durand Present on Admission?: Yes History of Present Illness Reason for Consultation: Intractable right knee pain Attending Physician: Wes Hager DO History of Present Illness Mrs. Durand is a 53-year-old white female who was admitted due to acute onset right-sided knee pain. Patient has history of prior TKA in 2007 with subsequent infection resulting in explant, antibiotic spacer and revision TKA performed 05/2011. She reports some mild chronic discomfort in the right knee relating to "scar tissue" but no chronic pain in the knee. She reported acute onset of increasing pain 1 day prior to admission without a known injury. She is reporting difficulty performing any ambulatory activity and was utilizing crutches the day of presentation. She was found to have septic joint upon this admission and underwent surgical procedure with incision and drainage and replacement of antibiotic spacer. Patient is currently postoperative day 2 and reporting no improvement in her right-sided knee pain which she describes as sharp and occasionally burning. Pain is aggravated with any movement. She was out of bed yesterday to the bathroom and a few steps alcohol with significant increase in discomfort. She is finding moderately from use of oxycodone and IV morphine lasting for only 1-2 hours at providing her with pain relief without notable side effects. The patient denies low back or lumbar radicular pain. She reports pain can radiate to the thigh and pretibial region. She denies use of opiates or illicit drugs in the outpatient setting. She is a chronic smoker with a greater than [id number] history. Patient reports gabapentin use over the past 1 year for treatment of a disc herniation in her neck. She denies any recent dosage adjustment. She has tolerated the medication without notable side effects. Plan per ID is to pursue IV antibiotics upon inpatient stay as well as a PICC line placement for outpatient IV antibiotics with plan for likely chronic antibiotic suppression orally. Plan of care discussed with Dr. Shankar. Pain Assessment Full Body Front + Back: 2 1. Right knee pain Pain scale - at its best (0-10): 4 Pain scale - at its worst (0-10): 9 Allergies Allergy/AdvReac Type Severity Reaction Status Date / Time enoxaparin Allergy Intermediate RASH Verified 07/07/18 11:14 Sulfa (Sulfonamide Allergy Unknown HIVES TO Verified 07/07/18 11:14 Antibiotics) SULFA DRUGS Home Medications Home Medications Medication Instructions Recorded Confirmed Type aspirin 650 mg PO Q6H 07/05/18 07/05/18 History gabapentin [Neurontin] 600 mg PO TID 07/05/18 07/05/18 History methylphenidate HCl [Ritalin] 10 mg PO BID 07/05/18 07/05/18 History methylphenidate HCl [Ritalin] 20 mg PO QAM 07/05/18 07/05/18 History metoprolol succinate [Toprol XL] 100 mg PO DAILY 07/05/18 07/05/18 History omeprazole 20 mg PO DAILYBB 07/05/18 07/05/18 History sertraline [Zoloft] 100 mg PO QAM 07/05/18 07/05/18 History Patient History Medical History Tobacco abuse (Chronic) Hypertension (Chronic) ADHD (Chronic) GERD (gastroesophageal reflux disease) (Chronic) Depression (Chronic) Anxiety (Chronic) Chronic neck pain (Chronic) with radiculopathy Surgical History Total knee replacement status (Chronic) TKA 2007, Revision 2010 secondary to infection Social History Current Living Situation: Alone Other Information That Helps Us Care for You: No Feels Safe at Home: Yes Safety Concerns: Feels Safe At This Time Smoking Status: Current every day smoker Tobacco Type: cigarettes Cigarettes per Day: 10 Do You Dip or Chew Tobacco: No Hx Alcohol Use: Yes Alcohol Intake Frequency: other Hx Substance Use: No Beliefs That Will Affect Care: None Communication Ability: Effective Review of Systems Constitutional: Negative for fever, chills, sweats Eyes: Negative for eye pain, photophobia, drainage Ear, nose, mouth, throat: Negative for ear pain, nasal congestion, mouth lesions , change in voice Respiratory: Negative for wheezing, sputum production Cardiovascular: Negative for chest pain, palpitations, calf pain Gastrointestinal: Negative for abdominal pain, belching, bloating Genitourinary: Negative for dysuria, urinary incontinence, urinary urgency Musculoskeletal: Negative for deformities Integumentary: Negative for nail changes, skin yellowing, pruritus Neurological: Negative for abnormal speech, seizure type activity Physical Exam 2 Vital Signs (Past 24 Hours): Last Vital Signs Temp 36.8 C 07/09/18 06:54 Pulse 74 07/09/18 06:54 Resp 16 07/09/18 06:54 BP 110/71 07/09/18 06:54 Pulse Ox 97 07/09/18 06:54 Physical Exam: General: Patient sitting quietly in exam room upon entering in no acute distress. Speech and thought process appropriate. Mood and affect appropriate. Cognition intact. Head: Normocephalic and atraumatic. Eyes: Pupils equal round reactive to light. ENT: No evidence of nasal or oral mucosal lesion. Mucous members are moist. Neck: Supple without adenopathy. Full range of motion without limitation. Abdomen: Soft and nondistended. No organomegaly. No rebound or guarding. Back/spine: Loss of lumbar lordosis. Nontender over the midline to palpation or percussion. No paravertebral, facet joint or SI joint tenderness to palpation. Lower extremities: Dressing in place. Some generalized tenderness surrounding the knee joint. Limited range of motion with only 5-10 degrees of flexion with increased pain response. Sensation intact distally without evidence of edema. Dorsi and plantarflexion strength 5/5 and equal bilaterally. Dorsalis pedis and posterior tibial pulses 2+ and equal bilaterally. Neurologic: Cranial nerves grossly intact. Ambulatory function not witnessed.
[2018-07-09] MEDS: GABAPENTIN 300 MG CAP PO SCH ×3 (10:05→20:45)
[2018-07-09] MEDS: METOPROLOL SUCC 50MG EXT REL TAB PO SCH (10:05)
[2018-07-09] MEDS: OXYCODONE/ACETAMINOPHEN 10-325 TAB PO PRN ×2 (10:06→19:02)
[2018-07-09] MEDS: KETOROLAC 30 MG/ML VIAL IV PRN ×3 (10:24→22:17)
[2018-07-09 11:50] LABS: Lyme DNA Source Synovial Fluid
--- NOTE | 2018-07-09 15:59 | Orthopedic Progress Note ---
Date of Service July 09, 2018 Assessment & Plan (1) Infection of total right knee replacement: POD #2 s/p Right knee arthrotomy, Incision and Drainage Poly Exchange Knee poly-change to size 2 x 21 posterior stabilized knee aspiration with MSSA results on Cx. Plan for Picc line cont IV Ancef PT- WBAT, cont RICE DVT proph with NISHANT/SCD/ASA Pain management consulted (2) Painful total knee replacement, right: Acute onset of painful right total knee arthroplasty. Due to the patient' s significant past history for septic TKA and the acute onset of pain/effusion of her right total knee arthroplasty, the patient was admitted for pain control and work up to r/o PJI. I have indicated the patient for right knee arthrocentesis, risks, benefits and complications were explained to the patient detail which include however not limited to infections, blood loss, hematoma, pain, need for re-aspiration, injury to surrounding nerves, bone, vessels, soft tissue. Patient wished to proceed with arthrocentesis and informed consent was obtained. -Synovial fluid analysis pending -UA pening -Blood cultures pending -Pain control -Ice and elevation right knee -3 phase bone scan Subjective Postop day 2 status post right knee irrigation debridement with polyethylene bearing change. Patient looks much more comfortable this evening. Nursing is present and giving medications. Patient states she still having a fair amount of pain with mobilization however currently she appears comfortable. Denies shortness of breath, chest pain, lightheadedness. Culture results are MSSA. Physical Exam 2 Vital Signs (Past 24 Hours): Last Vital Signs Temp 36.7 C 07/09/18 15:12 Pulse 88 07/09/18 15:12 Resp 20 07/09/18 15:12 BP 146/88 H 07/09/18 15:12 Pulse Ox 96 07/09/18 15:12 Physical Exam: Prevena dressing is clean dry and intact. Calves are soft nontender. Neurovascular is intact. Toes are mobile. There is no overt erythema around the knee itself. Swelling is minimal.
[2018-07-09] MEDS: SENNA 8.6 MG TAB PO SCH (20:45)
[2018-07-10] MEDS: OXYCODONE/ACETAMINOPHEN 10-325 TAB PO PRN ×2 (01:51→08:54)
[2018-07-10] MEDS: CEFAZOLIN 1000MG 1,000 MG/7.5 ML SYR IV SCH (04:15)
[2018-07-10] MEDS: KETOROLAC 30 MG/ML VIAL IV PRN ×3 (04:23→18:55)
[2018-07-10] MEDS: HYDROmorphone INJ 0.5 MG/0.5 ML SYR IV PRN ×2 (05:53→10:11)
[2018-07-10] MEDS: PANTOprazole 40 MG TAB PO SCH (05:53)
--- NOTE | 2018-07-10 07:49 | Orthopedic Progress Note ---
Date of Service July 10, 2018 Assessment & Plan (1) Infection of total right knee replacement: POD #3 s/p Right knee arthrotomy, Incision and Drainage Poly Exchange Knee poly-change to size 2 x 21 posterior stabilized knee aspiration with MSSA results on Cx. Plan for Picc line- consent placed in chart Per ID, Patient will require 6 weeks of IV antibiotics, would recommend IV ceftriaxone 2 g daily to allow easy as outpatient therapy. Would also add oral rifampin 600 mg daily given retained hardware PT- WBAT, cont RICE DVT proph with NISHANT/SCD/ASA Pain management consulted (2) Painful total knee replacement, right: Subjective Postop day 3 status post right knee irrigation debridement with polyethylene bearing change. overall showing improvement however feels she is still having quite a bit of pain. will discuss with pain management Patient states she still having a fair amount of pain with mobilization however currently she appears comfortable. Denies shortness of breath, chest pain, lightheadedness. Culture results are MSSA. Physical Exam 2 Vital Signs (Past 24 Hours): Last Vital Signs Temp 36.7 C 07/10/18 07:06 Pulse 66 07/10/18 07:06 Resp 16 07/10/18 07:06 BP 149/97 H 07/10/18 07:06 Pulse Ox 97 07/10/18 07:06 Musculoskeletal: NVDI, calf SNT, negative dorothea sign. DP palpable, able to wiggle toes/ankle movement without difficulty. Prevena dressing clean dry and intact. expected post-operative bruising noted.
[2018-07-10] MEDS: GABAPENTIN 300 MG CAP PO SCH ×3 (08:44→21:07)
[2018-07-10] MEDS: METOPROLOL SUCC 50MG EXT REL TAB PO SCH (08:45)
[2018-07-10] MEDS: DOCUSATE SODIUM 100 MG CAP PO SCH ×2 (08:45→21:07)
[2018-07-10] MEDS: ASPIRIN 81 MG ECTAB PO SCH ×2 (08:45→21:07)
[2018-07-10] MEDS: SERTRALINE HCL 100 MG TABLET PO SCH (08:45)
[2018-07-10] MEDS: METHYLPHENIDATE HCL 10 MG TABLET PO SCH ×3 (08:55→15:39)
--- NOTE | 2018-07-10 09:01 | Pain Management Progress Note ---
Date of Service July 10, 2018 Assessment & Plan (1) Infection of total right knee replacement: * Recommend discontinuation of short acting oxycodone and resume long- acting OxyContin as it appeared to provide better analgesia. * Recommend short acting oxycodone for breakthrough pain or before physical therapy. * Recommend 0.5 mg IV hydromorphone before physical therapy. * Opiate risk assessment demonstrates patient had mild risk. Recommend urine drug monitoring and surveillance after discharge. * [facility] site was checked but was not working. Present on Admission?: Yes (2) Depression: * Continue current medications as is no recent change. Present on Admission?: Yes (3) Anxiety: * Stable. No recent change. (4) Tobacco abuse: Present on Admission?: Yes Subjective Patient reports persistent pain in the right knee operative site. She reports that she obtains marginal relief from 10 mg of oxycodone orally. Additionally, she reports that she obtains excellent relief from the IV hydromorphone 0.5 mg but relief only last for probably 30 minutes after which she experiences significant pain. She rates her pain as 8/10 when severe and 5/10 when minimal. Upon further questioning, she reports that she obtain improved analgesia with long-acting OxyContin compared to the oxycodone. While she does obtain excellent analgesia from the IV hydromorphone, she only experiences this for a brief duration. She reports that this limited her ability to do physical therapy yesterday. Patient further indicates that she did not have any history of opioid dependence , substance use or abuse disorder, alcohol dependence or misuse, or other comorbid conditions relative addictive behavior. She was on chronic opiate therapy for approximately 1 month after her initial knee replacement in 2008. Her prosthesis subsequently replaced in 2010 after which she was on opiate therapy for 1 year duration. She denied having difficulty "weaning" of the opiates at that time. She has not require formal rehabilitation to abstain from opioid use. She does a history of tobacco use. She also has a history of mild depression and anxiety which which are currently being treated without any acute decompensation. She denies any psychosocial stressors at the present time. Pain Assessment Pain Assessment Full Body Front + Back: 2 1. [facility] Combined Pain Scale: 6-Mod to Severe - Significant limitations of ADLs. Hard to do anything Pain scale - at its worst (0-10): 9 Physical Exam 2 Vital Signs (Past 24 Hours): Last Vital Signs Temp 36.7 C 07/10/18 07:06 Pulse 66 07/10/18 07:06 Resp 16 07/10/18 07:06 BP 149/97 H 07/10/18 07:06 Pulse Ox 97 07/10/18 07:06 Constitutional: WD/WN, vitals as above + acute distress Musculoskeletal: Extremities: + limited ROM of extremities (Due to pain in the right knee) and + abnormal muscle tone; no cyanosis Neurologic: normal touch/pain/proprioception Psychiatric: A+Ox3, euthymic affect
[2018-07-10] MEDS: OXYCODONE HCL 10 MG TABCR (OXYCONTIN) PO SCH ×2 (10:12→21:07)
--- NOTE | 2018-07-10 10:40 | Infectious Disease Progress Nt ---
Date of Service July 10, 2018 Assessment & Plan (1) Infection of total right knee replacement: Patient with infected right TKA with methicillin sensitive staph aureus. Patient will require 6 weeks of IV antibiotics, would recommend IV ceftriaxone 2 g daily to allow easy as outpatient therapy. Have added oral rifampin 600 mg daily given retained hardware. Patient will likely require lifelong suppressive therapy after IV treatment completed. Will follow. (2) MSSA (methicillin susceptible Staphylococcus aureus) infection: Subjective Patient seen in follow-up for infected right TKA. Still having severe pain, currently 6 out of 10 right knee. Remains afebrile. Tolerating antibiotic without apparent difficulty. Review of Systems All systems reviewed & are unremarkable except as noted in HPI & below Physical Exam 2 Vital Signs (Past 24 Hours): Last Vital Signs Temp 36.7 C 07/10/18 07:06 Pulse 66 07/10/18 07:06 Resp 16 07/10/18 07:06 BP 149/97 H 07/10/18 07:06 Pulse Ox 97 07/10/18 07:06 Constitutional: WD/WN, vitals as above comfortable; no acute distress Eyes: PERRL, conjunctivae normal, anicteric sclerae ENMT: external ear and nose normal, oropharynx normal Neck: trachea midline, no thyromegaly neck nontender Respiratory: normal respiratory effort, lungs clear to auscultation normal percussion; does not use accessory muscles Cardiovascular: Rate/Rhythm: regular rate and regular rhythm Heart Sounds: normal S1 and normal S2; no gallop, no murmur and no cardiac rub Vessels: normal peripheral pulses; no JVD Gastrointestinal (Abdomen): normal bowel sounds, soft, nontender, no hepatosplenomegaly Musculoskeletal: no cyanosis or clubbing, extremities motor strength 5/5 Spine: thoracic spine normal to inspection and lumbar spine normal to inspection ; no cervical spinal tenderness Skin: no rashes, warm and dry normal turgor Surgical dressing intact Neurologic: moves all extremities and awake; no focal motor deficits Psychiatric: A+Ox3, euthymic affect Orientation: cooperative Lymphatic: no cervical or axillary lymphadenopathy no inguinal lymphadenopathy Results & Data Laboratory Results Laboratory Results - last 48 hr 07/05/18 20:23 Fld Lyme DNA (PCR) Not detected Lyme Specimen Source Synovial Fluid Diagnostic Findings Microbiology 07/05/18 19:50 Joint Fluid/Space (Synovial) Gram Stain - Final 07/05/18 19:50 Joint Fluid/Space (Synovial) Aerobic and Anaerobic Culture - Preliminary Staphylococcus aureus 07/07/18 13:00 Knee,Right Gram Stain - Final 07/07/18 13:00 Knee,Right Aerobic and Anaerobic Culture - Preliminary Staphylococcus aureus 07/05/18 15:25 Blood Blood Culture - Preliminary Staphylococcus aureus 07/05/18 19:50 Tissue,Undefined Acid Fast Bacilli Smear - Final 07/05/18 16:19 Blood Blood Culture - Preliminary No growth to date. 07/05/18 20:23 Knee,Right Fungal Smear - Final
[2018-07-10] MEDS: cefTRIAXone SODIUM 2,000 MG in DEXTROSE 5% 50 ML IV SCH (11:55)
[2018-07-10] MEDS: rifAMPin 300 MG CAPSULE PO SCH (12:07)
[2018-07-10] MEDS: OXYCODONE/ACETAMINOPHEN 5mg/325mg TAB PO PRN ×2 (16:59→22:33)
[2018-07-10] MEDS ORDERED: HEPARIN 100 UNIT/ML 5ML FLUSH FLUSH PRN (19:20)
[2018-07-10] MEDS: SENNA 8.6 MG TAB PO SCH (21:07)
[2018-07-10] MEDS ORDERED: METOPROLOL TARTRATE 1 MG/ML VIAL IV STA (22:39)
[2018-07-10] MEDS ORDERED: METOPROLOL TARTRATE 25 MG TAB PO ONE (22:45)
[2018-07-11] MEDS: KETOROLAC 30 MG/ML VIAL IV PRN ×2 (01:23→07:39)
[2018-07-11] MEDS: PANTOprazole 40 MG TAB PO SCH (06:08)
[2018-07-11] MEDS: OXYCODONE/ACETAMINOPHEN 5mg/325mg TAB PO PRN ×2 (06:08→10:21)
[2018-07-11] MEDS: OXYCODONE HCL 10 MG TABCR (OXYCONTIN) PO SCH (07:39)
[2018-07-11] MEDS: rifAMPin 300 MG CAPSULE PO SCH (07:40)
[2018-07-11] MEDS: GABAPENTIN 300 MG CAP PO SCH (07:40)
[2018-07-11] MEDS: METOPROLOL SUCC 50MG EXT REL TAB PO SCH (07:40)
[2018-07-11] MEDS: SERTRALINE HCL 100 MG TABLET PO SCH (07:41)
[2018-07-11] MEDS: DOCUSATE SODIUM 100 MG CAP PO SCH (07:41)
[2018-07-11] MEDS: ASPIRIN 81 MG ECTAB PO SCH (07:42)
[2018-07-11] MEDS: METHYLPHENIDATE HCL 10 MG TABLET PO SCH (07:48)
[2018-07-11] MEDS: cefTRIAXone SODIUM 2,000 MG in DEXTROSE 5% 50 ML IV SCH (07:48)
--- NOTE | 2018-07-11 08:22 | Orthopedic Progress Note ---
Date of Service July 11, 2018 Assessment & Plan (1) Infection of total right knee replacement: POD #4 s/p Right knee arthrotomy, Incision and Drainage Poly Exchange Knee poly-change to size 2 x 21 posterior stabilized knee aspiration with MSSA results on Cx. Picc line placed Per ID, Patient will require 6 weeks of IV antibiotics, would recommend IV ceftriaxone 2 g daily to allow easy as outpatient therapy. Would also add oral rifampin 600 mg daily given retained hardware We will continue pain management as per Dr. Toure's last note. OxyContin 10 mg p.o. twice daily along with Percocet 5/325 1 tablet p.o. every 4 hours as needed for breakthrough pain. Plan for discharge to home today PT- WBAT, cont RICE DVT proph with NISHANT/SCD/ASA (2) Painful total knee replacement, right: Subjective Postop day 4 status post irrigation and debridement of infected right TKA with polyethylene bearing change. Patient is awake and alert and oriented. No overt complaints today. States that she feels that she is ready to go home. Physical Exam 2 Vital Signs (Past 24 Hours): Last Vital Signs Temp 37.0 C 07/11/18 07:29 Pulse 66 07/11/18 07:29 Resp 18 07/11/18 07:29 BP 159/107 H 07/11/18 07:29 Pulse Ox 96 07/11/18 07:29 Physical Exam: Prevena dressing is clean, dry, intact. Functioning appropriately and no overt drainage in the collection chamber. No overt erythema around the knee itself and swelling is minimal. Calves are soft and nontender. Neurovascular is intact.
[2018-07-11] MEDS: HYDROmorphone INJ 0.5 MG/0.5 ML SYR IV PRN (08:47)
--- NOTE | 2018-07-17 14:51 | Discharge Summary ---
DISCHARGE DIAGNOSIS: Infected right total knee arthroplasty. SECONDARY DIAGNOSES: Hypertension, radiculopathy, gastroesophageal reflux disease, depression. CONSULTS: Dr. Aponte. COMPLICATIONS: None. PROCEDURES: Right I and D with polyethylene bearing exchange of infected right TKA by Dr. Nicolas on 07/07/2018. BRIEF HISTORY: As dictated in the history and physical. HOSPITAL SUMMARY: The patient was admitted on the above-noted date with the above-noted suspected infection of the right TKA. An aspiration had been done on 07/05/[address] Hager and eventually grew out MSSA. In the meantime, the patient was started on IV antibiotics on admission, and after examining the aspirate, it was showing gram-positive cocci and a synovial fluid cell count of 20,000. At that time, the blood cultures were pending and plans were for open irrigation and debridement and polyethylene bearing change. The patient was then taken to the operating room on 07/07/2018 where the above-noted procedure was performed which the patient tolerated well. On her first postoperative day, she was having increased pain that morning and was ordered Toradol x1 with a mild improvement in her pain. She was having a difficult time doing PT due to her pain. She denied any other complaints and vital signs were stable and afebrile. Neurovascular was intact. Calves were soft, nontender. Dorsalis pedis pulse was palpable. Toes were mobile and dressings were clean, dry and intact. Hemovac was functioning and hemoglobin was 10.6. She was started on physical therapy protocol and continued on DVT prophylaxis and pain management. Dr. Demetri Sharpe was consulted from infectious disease and for help with antibiotic choices pending culture results. With her pain management problems, [facility] pain management was consulted and the patient was seen by pain management and recommendations were made and they continued to follow the patient during her stay. By her second postoperative day, she was looking much more comfortable that evening. Nursing was present and giving medications. The patient stated that she was still having a fair amount of pain with mobilization; however, currently, she appeared comfortable. She denies shortness of breath, chest pain or lightheadedness. Culture results were noted to be MSSA. Prevena dressing was clean, dry and intact. Calves were soft, nontender. Neurovascular was intact. Toes were mobile. There was no overt erythema around the knee itself and swelling was minimal. Plans were for a PICC line and eventual IV antibiotic choice was Rocephin 2 grams daily. Pain management saw the patient again on 07/10/2018, and after certain medications had been initially adjusted and/or removed, Dr. Shankar saw the patient and plans were to discontinuation of short-acting oxycodone and resume long-acting OxyContin. Recommended a short-acting oxycodone for breakthrough pain before physical therapy only and Percocet was recommended. At this point in time, the patient herself was remaining stable. She was overall showing improvement and she continued to discuss her pain management. Otherwise, she had no other complaints and vital signs remained stable. She was afebrile and Prevena dressings remained intact and dry. Neurovascular was intact and calves were soft, nontender. The rest of her stay was essentially uneventful. Dr. Sharpe had chosen the IV ceftriaxone 2 grams daily and also added oral rifampin 600 mg p.o. daily to the antibiotic regimen. She was otherwise remaining stable and she had no overt complaints on her last day and that she was ready to go home. Vital signs were stable. She was afebrile. She had no new changes with her dressing and/or her lower extremity. Case management arranged for home health services and she was thusly discharged to home on 07/11/2018. For further review, please see chart. LABORATORY AND X-RAY DATA: As per chart. DISCHARGE INSTRUCTIONS: The patient was discharged to home in satisfactory condition with home health services on 07/11/2018. Diet: Regular. Activity: Weightbearing as tolerated, right lower extremity with walker. Follow TK instruction sheets and special care instructions as noted and follow up with Dr. Nicolas in 2 weeks from the day of surgery. Patient is to call for appointment if one has not been made for you. Follow up with Dr. Sharpe in 2 weeks. The patient is to call for appointment. DISCHARGE MEDICATIONS: Aspirin 81 mg p.o. b.i.d., ceftriaxone 2 grams IV daily for 6 weeks, OxyContin 10 mg p.o. b.i.d. Percocet 1 tab p.o. q. 4 hours p.r.n. and rifampin 600 mg p.o. q.a.m. for 6 weeks. Resume home meds as listed and stop taking original aspirin dosage.
== END 2018-07-11 11:41 | disposition home health service (06) | DRG 465 ==
LOC: 3W 14:43 → ED 14:43 → 3W 18:28
DX: Z88.2 Allergy status to sulfonamides; I10 Essential (primary) hypertension; Z96.651 Presence of right artificial knee joint; B95.61 Methicillin susceptible Staphylococcus aureus infection as the cause of diseases classified elsewhere; Y79.2 Prosthetic and other implants, materials and accessory orthopedic devices associated with adverse incidents; F90.9 Attention-deficit hyperactivity disorder, unspecified type; M54.12 Radiculopathy, cervical region; F17.210 Nicotine dependence, cigarettes, uncomplicated; K21.9 Gastro-esophageal reflux disease without esophagitis; F32.9 Major depressive disorder, single episode, unspecified; T84.53XA Infection and inflammatory reaction due to internal right knee prosthesis, initial encounter; Z79.82 Long term (current) use of aspirin

== ENCOUNTER 2020-10-19 08:03 | Observation (INO) ==
--- NOTE | 2020-10-03 08:26 | History & Physical Report ---
Date of Service October 03, 2020 date of surgery: 10/19/20 Procedure: Left Total Knee Arthroplasty Assessment & Plan (1) Arthritis of knee, left: Risks and benefits of procedure discussed in detail today, patient would like to proceed with a Left total knee replacement at [facility] as scheduled. will obtain medical clearance from Dr Booth prior to surgery as well as obtain PATs at [facility]. Will place on ASA 81mg po bid x 1 month post op, f/u 2 weeks post op for routine post-operative care and x-ray, sooner if having any problems. will make arrangements for HHPT at the time of discharge. At this point in time, has failed conservative measures and would like to proceed with surgical intervention. she would like to continue receiving her pain meds from Dr Booth, will send his office a message for recommendations. of note, she is also on chronic antibiotic suppression from her other TKA, takes Cefadroxil. she has recently seen Dr Sarah DUNCAN and recommends continuation of the Cefadroxil and post-operatively as well. The risks and benefits have been discussed including, but not limited to, risk of infection, nerve injury, stiffness, loss of motion, failure to improve, etc. Reasonable outcomes and options of treatment were discussed. An explanation of appropriate alternatives to the procedure that may be advantageous were discussed and their risks and benefits, as well as the risks and benefits of not proceeding with treatment. I offered to answer any additional inquiries concerning the treatment involved. All the patient's questions were answered. The patient is agreeable, understanding of the treatment plan and alternatives, and wishes to proceed with the treatment plan. History of Present Illness Chief Complaint: left knee pain Primary Care Provider: Estuardo Booth MD Wendi is a 55 year old female who complains of left knee pain, presents for pre-op evaluation prior to a left total knee replacement by dr Nicolas at [facility]. she complains of pain, decreased range of motion, instability and stiffness in her left knee. she states that the symptoms have been chronic and non-traumatic. she states that the symptoms occur constantly with intermittent worsening. Currently the patient states that the symptoms are moderate-severe. The pain is described as aching, sharp and throbbing. The symptoms occur continuously. The symptoms are aggravated by ascending stairs, daily activities, first steps while awake walking. Prior NSAIDs include IBU and Aleve. she has been treated with previous cortisone and visco injections in the past without much relief. she has had multiple left knee arthroscopies, most recent summer. she has failed conservative measures and would like to proceed with left TKA. she is on chronic pain medications and is managed by Dr Booth Allergies Allergy/AdvReac Type Severity Reaction Status Date / Time enoxaparin Allergy Unknown RASH Verified 09/06/20 10:47 Sulfa (Sulfonamide Allergy Unknown HIVES TO Verified 09/06/20 10:47 Antibiotics) SULFA DRUGS Home Medications Medication Instructions Recorded Confirmed Type gabapentin [Neurontin] 600 mg PO TID 07/05/18 09/06/20 History methylphenidate HCl [Ritalin] 10 mg PO UD 07/05/18 09/06/20 History methylphenidate HCl [Ritalin] 20 mg PO QAM 07/05/18 09/06/20 History metoprolol succinate [Toprol XL] 100 mg PO QAM 07/05/18 09/06/20 History omeprazole 20 mg PO QAM 07/05/18 09/06/20 History sertraline [Zoloft] 100 mg PO QAM 07/05/18 09/06/20 History lisinopril 20 mg tablet 20 mg PO QAM tab 07/08/19 09/06/20 History cefadroxil 500 mg PO BID 05/11/20 09/06/20 History fluconazole 100 mg PO DAILY PRN 05/11/20 09/06/20 History oxycodone-acetaminophen [Percocet] 1 tab PO TID PRN 05/11/20 09/06/20 History trazodone 50 mg PO HS PRN 05/11/20 09/06/20 History Past Med/Surg History Medical History ADHD Anxiety Chronic neck pain with radiculopathy -- unable to lay on right side. Full ROM Depression Fibromyalgia GERD (gastroesophageal reflux disease) Hypertension MSSA (methicillin susceptible Staphylococcus aureus) infection HX Neuropathy bilateral hands Osteoarthritis Surgical History History of bilateral tubal ligation History of carpal tunnel release right History of colonoscopy History of esophagogastroduodenoscopy (EGD) History of repair of rotator cuff rigth History of tonsillectomy S/P revision of total knee right knee revision x2 (r/t infection) Total knee replacement status TKA 2007 Family History Brother Family history of esophageal cancer Other Family history of colon cancer in father No family history of adverse response to anesthesia Social History Smoking Status: Current every day smoker Cigarettes Per Day: 6 CIGS PER DAY/ADVISED NPO; Second Hand Exposure: Yes; Hx Alcohol Use: Yes Hx Substance Use: No Preferred Language: Singaporean Communication Ability: Effective Visual Impairment: No Limitations Salt Miner Required: No Beliefs That Will Affect Care: None Current Living Situation: Family Current Living Situation Comment: MOTHER Feels Safe at Home: Yes Assistive Devices: Glasses Review of Systems Review of Systems: All systems reviewed & are unremarkable except as noted in HPI & below Constitutional: no fever, no chills and no sweats Respiratory: no cough and no dyspnea Cardiovascular: no chest pain, no dyspnea and no orthopnea Gastrointestinal: no abdominal pain, no nausea and no vomiting Musculoskeletal: as per Subjective / HPI Physical Exam Physical Exam: Ht: 5ft 6.5in Wt: 70.3kg BP: 142/88 Constitutional: WD/WN, vitals as above no acute distress Respiratory: normal respiratory effort, lungs clear to auscultation no respiratory distress, no labored breathing and does not use accessory muscles Cardiovascular: RRR, no murmur, no edema Gastrointestinal (Abdomen): normal bowel sounds, soft, nontender, no hepatosplenomegaly Musculoskeletal: Knee: + knee abnormal to inspection (Left Knee), + effusion (+1 effusion), + surgical incision (well healed portals), + limited ROM of knee (ROM 0/3/110), + knee ROM with crepitation, + joint line tenderness (medial joint line) and + Yeimi's sign positive; no deformity, no skin erythema, no ecchymosis, no valgus laxity, no varus laxity, anterior drawer test negative, Sisi's sign negative and pivot shift test negative Results & Data Results & Data ([facility]) Laboratory Results Laboratory Results Blood Type O Negative 09/22/20 10:34 Antibody Screen NEGATIVE 09/22/20 10:34 Diagnostic Findings Left Knee X-ray: left knee series confirms degenerative changes to the left knee, greatest medial compartments and patellofemoral joint, showing joint space narrowing, osteophyte formation and subchondral sclerosis. no acute bony pathology noted.
--- NOTE | 2020-10-13 14:55 | Anesthesiology Consultation ---
Date of Service October 13, 2020 Assessment & Plan (1) Encounter for pre-operative examination: Chart Review Chart Review: Acceptable Risk for Surgery (pending preop Covid testing results ) and Patient NOT seen in Pre Admission Testing Per nursing assessment 09/06/20, patient denies any recent travel. No known Covid positive contacts or Covid related symptoms. No known Covid infection in the past 90 days. Preop Covid test 10/12/20 at [facility] awaiting results. 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 Had initial TKA in 2008, in 2010 hardware removed and placement of antibiotic disc- one month later had antibiotic spacer removed and new hardware placed. Did well x 8 years- in Jul 2018 developed septic arthritis and had right total knee revision. No issues since that time. Chronic MSSA- "can not give you definitive infectious risk, however it is higher than a patient w/o hx of infection. I recommend that patient continue Cefadroxil as prescribed until surgery and after surgical intervention, pt should get an ID consult for evaluation of continuation of antibiotics." ID happy to continue to prescribe an tibiotics. "In my opinion it is okay to proceed with the surgery" History Surgery Operation Date: 10/19/20 10:00 Proposed Procedures p Left Total Knee Arthroplasty - Ronald Nicolas, Height/Weight Height: 5 ft 6.5 in Weight: 70.307 kg Allergies Allergy/AdvReac Type Severity Reaction Status Date / Time enoxaparin Allergy Unknown RASH Verified 09/06/20 10:47 Sulfa (Sulfonamide Allergy Unknown HIVES TO Verified 09/06/20 10:47 Antibiotics) SULFA DRUGS Medications Home Medications Medication Instructions Recorded Confirmed Last Taken gabapentin [Neurontin] 600 mg PO TID 07/05/18 09/06/20 07/05/18 methylphenidate HCl [Ritalin] 10 mg PO UD 07/05/18 09/06/20 07/05/18 methylphenidate HCl [Ritalin] 20 mg PO QAM 07/05/18 09/06/20 07/05/18 metoprolol succinate [Toprol XL] 100 mg PO QAM 07/05/18 09/06/20 07/05/18 omeprazole 20 mg PO QAM 07/05/18 09/06/20 07/05/18 sertraline [Zoloft] 100 mg PO QAM 07/05/18 09/06/20 07/05/18 lisinopril 20 mg tablet 20 mg PO QAM tab 07/08/19 09/06/20 Unknown cefadroxil 500 mg PO BID 05/11/20 09/06/20 Unknown fluconazole 100 mg PO DAILY PRN 05/11/20 09/06/20 Unknown oxycodone-acetaminophen [Percocet] 1 tab PO TID PRN 05/11/20 09/06/20 Unknown trazodone 50 mg PO HS PRN 05/11/20 09/06/20 Unknown Past Medical History Medical History (Updated 10/13/20 @ 15:51 by Makenna Damon PA-C) ADHD Anxiety Chronic neck pain with radiculopathy -- unable to lay on right side. Full ROM Depression Fibromyalgia GERD (gastroesophageal reflux disease) Hypertension MSSA (methicillin susceptible Staphylococcus aureus) infection HX Neuropathy bilateral hands Osteoarthritis Prediabetes Hgb A1C 6.2 in 08/2020 Past Family History Family History Brother Family history of esophageal cancer Other Family history of colon cancer in father No family history of adverse response to anesthesia Past Surgical History Surgical History History of bilateral tubal ligation History of carpal tunnel release right History of colonoscopy History of esophagogastroduodenoscopy (EGD) History of repair of rotator cuff rigth History of tonsillectomy S/P revision of total knee right knee revision x2 (r/t infection) Total knee replacement status TKA 2007 Social History Smoking Status: Current every day smoker tobacco type: cigarettes Smoking cigarettes per day: 6 CIGS PER DAY/ADVISED NPO Do You Dip or Chew Tobacco: No Hx Alcohol Use: Yes alcohol intake frequency: holidays/special occasions only Hx Substance Use: No substance use type: prescription drug Lab Results Anesthesia Preop Results Results Anesthesia Widget: WBC 8.97 K/uL (4.8-10.8) 09/22/20 Hgb 14.1 g/dL (12.0-16.0) 09/22/20 Hct 41.2 % (37-47) 09/22/20 Plt 321 K/uL (130-400) 09/22/20 Na 139 mmol/L (136-145) 09/22/20 K 4.0 mmol/L (3.5-5.1) 09/22/20 Cl 107 mmol/L (98-107) 09/22/20 CO2 24 mmol/L (21-32) 09/22/20 BUN 32 mg/dl (7-18) H 09/22/20 Creat 1.07 mg/dl (0.6-1.2) 09/22/20 Glucose Level 102 mg/dl (70-99) H 09/22/20 PT 9.8 Seconds (9.0-12.0) 09/22/20 PTT 25.9 Seconds (21.0-31.0) 09/22/20 INR 1.0 (0.9-1.1) 09/22/20 HA1c 6.2 % (4.5-5.6) H 09/22/20 Urine Color Yellow 09/22/20 Urine Appearance Clear (Clear) 09/22/20 Urine pH 5.0 (4.5-7.5) 09/22/20 Urine Specific [place] 1.027 (1.000-1.030) 09/22/20 Urine Protein Negative (Negative) 09/22/20 Urine Glucose (UA) Negative (Negative) 09/22/20 Urine Ketones Trace (Negative) H 09/22/20 Urine Blood Negative (Negative) 09/22/20 Urine Nitrite Negative (Negative) 09/22/20 Urine Bilirubin Negative (Negative) 09/22/20 Urine Urobilinogen Negative (Negative) 09/22/20 Urine Leukocyte Esterase Negative (Negative) 09/22/20 Testing Laboratory Results Blood Type O Negative 09/22/20 10:34 Antibody Screen NEGATIVE 09/22/20 10:34 Electrocardiogram Date: 09/22/20 Findings: + NSR @ (75bpm) Normal EKG. Chest X-Ray Date: 05/13/20 Findings: + NAD
[~2020-10-19 08:03] MED LIST changes: +ACETAMINOPHEN 500 MG TAB PO SCH; +BUPIVACAINE 0.25% 30 ML VIAL ONE; +BUPIVACAINE 0.5 % 5 MG/1 ML PF 10ML VIAL ONE; +CeleBREX 200 MG CAP PO SCH; +FAMOTIDINE 20 MG TAB PO SCH; +GABAPENTIN 600 MG DOSE PO SCH; +LR 500ML BOLUS, THEN 15ML/HR IV SCH; +METOCLOPRAMIDE HCL 10 MG TABLET PO SCH; +ROPIVACAINE 0.5% HCL/PF 150 MG, BUPIVACAINE 0.75% MPF 20 ML, EPINEPHrine 30MG/30ML (OR ... INSTIL SCH; -SERT-234 PO; +Scopolamine 1 MG TDSY TD SCH; +TRANEXAMIC ACID 1,000 MG **IV Intra-op IV SCH; +TRANEXAMIC ACID 1,000 MG **IV Pre-op IV SCH; +ceFAZolin 1000MG 1,000 MG/7.5 ML SYR IV SCH; +dexAMETHasone 4 MG TAB PO SCH
[2020-10-19] MEDS ORDERED: fentaNYL citrate 100 MCG/2 ML VIAL ONE (08:13)
[2020-10-19] MEDS ORDERED: MIDAZOLAM HCL 1 MG/ML 2ML VIAL ONE ×2 (08:13)
--- NOTE | 2020-10-19 08:26 | History & Physical Bridge Note ---
Date of Service October 19, 2020 History & Physical Bridge Note I have examined the patient, reviewed the History & Physical and in the interval since the performance of the History & Physical I have noted the following changes of clinical significance: no changes noted
[2020-10-19] MEDS ORDERED: BACITRACIN INJ 50,000 UNIT VIAL ONE (08:39)
[2020-10-19] MEDS ORDERED: ORTHO JOINT ANESTHETIC ONE (08:39)
[2020-10-19] MEDS ORDERED: fentaNYL citrate 100 MCG/2 ML VIAL IV PRN (09:45)
[2020-10-19] MEDS ORDERED: ONDANSETRON INJ 2 MG/ML 2 ML VIAL IV PRN ×2 (09:45→12:21)
[2020-10-19] MEDS ORDERED: ePHEDrine sulfate 50 MG/ML AMP IV PRN (09:45)
[2020-10-19] MEDS ORDERED: ATROPINE SULFATE 0.1 MG/ML 10ML SYR IV PRN (09:45)
[2020-10-19] MEDS ORDERED: PROPOFOL IV EMULSION 10 MG/ML 20 ML VIAL IV ONE (10:12)
[2020-10-19] MEDS ORDERED: LIDOCAINE HCL 2% 2 ML VIAL/AMP(20MG/ML) INFIL ONE (10:12)
[2020-10-19] MEDS ORDERED: ePHEDrine sulfate 50 MG/ML SYR ONE (10:36)
[2020-10-19] MEDS ORDERED: PHENYLEPHRINE 100MCG/ML 5ML SYR ONE (10:36)
[2020-10-19] MEDS ORDERED: PHENYLEPHRINE HCL 10 MG/ML VIAL ONE (10:36)
--- NOTE | 2020-10-19 10:56 | Operative Report ---
Post Operative Report Pre & Post Diagnosis Operation Date: 10/19/20 10:00 Pre-Op Diagnosis: Unilateral Primary Osteoarthritis, Left Knee Post-Op Diagnosis: Unilateral Primary Osteoarthritis, Left Knee I identified the patient and participated in the time-out.: Yes Procedure Operation Date: 10/19/20 10:00 Actual Procedures p Left Total Knee Arthroplasty(Left) utilizing [employer] journey 2 patient matched total knee arthroplasty size femur 4 tibia 2 polynine patella 29 kristen- Ronald Nicolas DO Surgeon Ronald Nicolas DO Dye Weigher Helper Estuardo KISER Estimated Blood Loss 5 Findings Consistent with Post-Op Diagnosis Patient presents with severe end-stage DJD left knee no response to conservative management patient failed attempted conservative management findings included subchondral sclerosis marginal osteophytes eburnated [id number] moderate to large effusion Specimens Bone and cartilage Drains Medium bore Hemovac Anesthesia Type MAC Spinal Regional Complications none Disposition Accompanied Patient To Recovery: No Disposition: Recovery Room Indications Patient presents after failed attempted conservative management occluding arthroscopy physical therapy corticosteroid injection Visco supplementation relative rest activity modification patient presents for left total knee arthroplasty the above intraoperative findings were noted Description of Procedure After proper prepping and draping of the left lower extremity anterior midline incision was made over the region of the extensor extensor mechanism after meticulous hemostasis was obtained and maintained in subcutaneous tissues a medial parapatellar incision was made The patella was subluxed lateralward the medial lateral gutter were cleaned from any hypertrophic synovitis and scar tissue of the distal femoral block was placed and the distal femoral osteotomy cut was made subsequently the chamfers anterior and posterior osteotomy cuts were made utilizing the 4-in-1 block the tibia was subsequently subluxed anteriorward medial and ateral meniscal remnants were excised in their entirety remnants of the anterior and posterior cruciate ligaments were excised in their entirety excellent exposure of the proximal tibia was obtained the tibial osteotomy guide was placed on the proximal tibial osteotomy cut was made once again the knee was irrigated with copious amounts of sterile saline solution the patella was subsequently everted lateralward thickened scar tissue around the patella was removed the patella was subsequently cut utilizing a freehand technique and was drilled prepared for final preparation and placement of patella socially flexion-extension gaps were checked and the equal and symmetric trials were placed to the appropriate femoral and tibial trials with poly-spacer being placed for equal flexion and extension gaps and full range of motion including extension to 0 and flexion to 140 the trial components after having been taken to recovery range of motion was subsequently removed meticulous hemostasis was obtained and maintained subsequently a knee block injection of joint cocktail including ropivacaine 0.5% 150 mg. Bupivacaine 0.5% epinephrine 1-200,030 mL's toradol 30 mg dexamethasone 4 mg ketamine 10 mg clonidine 100 micrograms normal saline solution 30 mg was infiltrated into the soft tissues of the posterior knee medial lateral gutters and periosteal synovium special attention was paid to protect neurovascular structures at all times subsequently trial components having been removed the knee was irrigated with sterile saline solution. debris was removed the proximal tibia was subsequently prepared and was made ready for the placement of the tibial component tibial component was also cemented and tamped into position the femoral component was subsequently placed and cemented in the position the patellar component was subsequently cemented in position because hemostasis once again obtained and maintained wound having been thoroughly irrigated with debridement and debridement lavage was performed as well as a medial parapatellar incision closed with #1 Vicryl in interrupted fashion subcutaneous was closed with #2 Vicryl skin was closed with skin clips. PA-C was necessary for prepping and drapping as well as wound closure of deep fascia Sub cutaneous tissue and skin and was necessary for the case. A sterile compressive dressing was placed patient was taken to recovery in stable condition of report dictated by Fidencio I attest to the content of the Intraoperative Record and any orders documented therein. Any exceptions are noted below. I attest to the content of the Intraoperative Record and any orders documented therein. Any exceptions are noted below.
[2020-10-19] MEDS ORDERED: traZODone HCL 50 MG TAB PO PRN (12:21)
[2020-10-19] MEDS ORDERED: MAGNESIUM HYDROXIDE SUSP 30 ML UDC PO PRN (12:21)
[2020-10-19] MEDS ORDERED: METOCLOPRAMIDE HCL INJ 5 MG/ML 2 ML VIAL IV PRN (12:21)
[2020-10-19] MEDS ORDERED: bisacodyL 10 MG SUPP PR PRN (12:21)
[2020-10-19] MEDS ORDERED: NALOXONE HCL 0.4 MG/1 ML VIAL/CARP IV PRN (12:21)
[2020-10-19] MEDS ORDERED: diphenhydrAMINE Capsule 25 MG CAP PO PRN (12:21)
--- NOTE | 2020-10-19 12:22 | XRay Report ---
TWO VIEWS LEFT KNEE CLINICAL HISTORY: Postoperative examination. FINDINGS: AP and crosstable lateral portable views of the left knee are obtained. A left knee arthrop lasty is in near anatomic alignment. There has been undersurface remodeling of the patella. No acute fracture is seen. There are expected postoperative changes around the knee including a surgical drain , soft tissue edema, and subcutaneous gas. IMPRESSION: Expected postoperative changes status post left knee arthroplasty. No acute fracture is s een. ACT 112: Negative or not required by law. Electronically signed by: Herminio Leija M.D. 10/19/2020 12:20 PM
[2020-10-19] MEDS: SODIUM CHLORIDE 0.9% 1000ML 1,000 ML IV SCH (12:41)
[2020-10-19] MEDS ORDERED: FLUCONAZOLE 100 MG TAB PO PRN (12:45)
[2020-10-19] MEDS: KETOROLAC TROMETHAMINE 15 MG/ML VIAL IV SCH ×2 (14:23→20:50)
[2020-10-19] MEDS: ACETAMINOPHEN 500 MG TAB PO SCH ×2 (14:23→21:07)
[2020-10-19] MEDS: GABAPENTIN 600 MG TAB PO SCH ×2 (14:23→21:07)
--- NOTE | 2020-10-19 14:32 | Anesthesiology Progress Note ---
Date of Service October 19, 2020 Anesthesia Post Procedure Vital Signs Vital Signs: Temp Pulse Pulse Resp BP BP Pulse Ox 10/19/20 14:10 36.5 C 68 18 99/64 L 100 10/19/20 13:17 66 16 92/57 L 100 10/19/20 12:40 36.5 C 63 16 95/60 L 97 10/19/20 12:10 37.0 C 61 16 100/66 98 10/19/20 11:55 62 16 134/79 95 10/19/20 11:45 36.5 C 61 16 134/82 99 10/19/20 11:37 36.6 C 71 16 134/79 99 10/19/20 08:42 36.9 C 73 18 110/67 94 Pain Intensity Left Knee: Pain Intensity: 8 Transfer of Care Handoff Completed per policy Notes Mental Status: alert / awake / arousable and participated in evaluation Patient Amnestic to Procedure: Yes Nausea / Vomiting: adequately controlled Pain: adequately controlled Airway Patency, RR, SpO2: stable & adequate BP & HR: stable & adequate Hydration State: stable & adequate Neuraxial Anesthesia: was administered and sensory block is resolving Anesthetic Complications: no major complications apparent and Pt Satisfied with anesthetic care
[2020-10-19] MEDS ORDERED: Scopolamine CHECK PATCH PLACEMENT SCH (16:00)
[2020-10-19] MEDS: METHYLPHENIDATE HCL 10 MG TABLET PO SCH (16:12)
[2020-10-19] MEDS: oxyCODONE HCL IR 5 MG TAB (IMMEDIATE RELEASE) PO PRN ×2 (17:30→21:43)
[2020-10-19] MEDS: ceFAZolin 1000MG 1,000 MG/7.5 ML SYR IV SCH (17:32)
[2020-10-19] MEDS ORDERED: SENNA 8.6 MG TAB PO SCH (21:00)
[2020-10-19] MEDS: ASPIRIN 81 MG ECTAB PO SCH (21:05)
[2020-10-19] MEDS: DOCUSATE SODIUM 100 MG CAP PO SCH (21:06)
[2020-10-19] MEDS: cephALEXin 500 MG CAP PO SCH (21:06)
[2020-10-20] MEDS: HYDROmorphone INJ 1 MG/ML SYRINGE IV PRN ×3 (00:06→11:31)
[2020-10-20] MEDS: SODIUM CHLORIDE 0.9% 1000ML 1,000 ML IV SCH (00:06)
[2020-10-20] MEDS: KETOROLAC TROMETHAMINE 15 MG/ML VIAL IV SCH ×2 (02:00→08:49)
[2020-10-20] MEDS: ceFAZolin 1000MG 1,000 MG/7.5 ML SYR IV SCH (02:01)
[2020-10-20] MEDS: oxyCODONE HCL IR 5 MG TAB (IMMEDIATE RELEASE) PO PRN ×3 (03:24→12:53)
[2020-10-20] MEDS: ACETAMINOPHEN 500 MG TAB PO SCH (06:06)
[2020-10-20 07:59] LABS: Hematocrit (blood only) 32.3 % (37-47); Hemoglobin 10.9 g/dL (12.0-16.0); Mean Corpuscular Hemoglobin 32.3 pg (25-34); Mean Corpuscular Hgb Conc 33.7 g/dL (32-36); Mean Corpuscular Volume 95.8 fL (80-100); Mean Platelet Volume 9.8 fL (7.4-10.4); Platelet Count 299 K/uL (130-400); RDW Coefficient of Variation 14.1 % (11.5-14.5); RDW Standard Deviation 49.4 fL (36.4-46.3); Red Blood Count 3.37 M/uL (4.2-5.4); White Blood Count 16.31 K/uL (4.8-10.8)
[2020-10-20] MEDS ORDERED: METHYLPHENIDATE HCL 10 MG TABLET PO SCH (08:00)
[2020-10-20 08:26] LABS: BUN Creatinine Ratio 28.6 (10-20); Calcium 9.1 mg/dl (8.5-10.1); Creatinine Clr Calc Pharmacy 66.7 ml/min; Est GFR (African American) 82.3
[2020-10-20] MEDS: cephALEXin 500 MG CAP PO SCH (08:50)
[2020-10-20] MEDS: ASPIRIN 81 MG ECTAB PO SCH (08:50)
[2020-10-20] MEDS: DOCUSATE SODIUM 100 MG CAP PO SCH ×2 (08:50→08:53)
[2020-10-20] MEDS: GABAPENTIN 600 MG TAB PO SCH (08:51)
[2020-10-20] MEDS ORDERED: lisinopril 20 MG TAB PO SCH (09:00)
[2020-10-20] MEDS ORDERED: METOPROLOL SUCC 50MG EXT REL TAB PO SCH (09:00)
[2020-10-20] MEDS ORDERED: SERTRALINE HCL 100 MG TABLET PO SCH (09:00)
[2020-10-20] MEDS ORDERED: MULTIVITAMIN TAB PO SCH (09:00)
--- NOTE | 2020-10-20 10:59 | Orthopedic Progress Note ---
Date of Service October 20, 2020 Assessment & Plan (1) Arthritis of knee, left: Postop day 1 status post left total knee arthroplasty. PT/OT protocols. Weightbearing as tolerated. DVT prophylaxis-aspirin p.o. twice daily, SCDs, NISHANT her. Pain management as written. DC planning-patient is planning for home health services upon discharge. Admission and Anticipated Discharge Date Admission Date: October 19, 2020 Subjective Postop day 1 Patient ambulating out of her bathroom with a walker at the time of my visit. She appears to be ambulating well. She states that her physical therapy went well. Some pain off and on but tolerating well. Denies shortness of breath, chest pain, lightheadedness. She is hoping to go home today. Physical Exam Physical Exam: Dressings are clean, dry, and intact. Calves are soft nontender. Neurovascular is intact. Toes are mobile. She is good dorsiflexion plantarflexion of the left foot. Minimal drainage from the Hemovac from the previous shift. Results & Data ([facility]) Vital Signs (Past 12 Hours) Vital Signs Temp Pulse Resp BP Pulse Ox 10/20/20 08:48 66 124/76 10/20/20 07:46 36.7 C 64 16 112/74 96 10/20/20 03:34 36.5 C 60 18 107/73 98 Laboratory Results Laboratory Results WBC 16.31 K/uL (4.8-10.8) H 10/20/20 07:35 RBC 3.37 M/uL (4.2-5.4) L 10/20/20 07:35 Hgb 10.9 g/dL (12.0-16.0) L 10/20/20 07:35 Hct 32.3 % (37-47) L 10/20/20 07:35 MCV 95.8 fL (80-100) 10/20/20 07:35 MCH 32.3 pg (25-34) 10/20/20 07:35 MCHC 33.7 g/dL (32-36) 10/20/20 07:35 RDW Std Deviation 49.4 fL (36.4-46.3) H 10/20/20 07:35 RDW Coeff of Jan 14.1 % (11.5-14.5) 10/20/20 07:35 Plt Count 299 K/uL (130-400) 10/20/20 07:35 MPV 9.8 fL (7.4-10.4) 10/20/20 07:35 Sodium 142 mmol/L (136-145) 10/20/20 07:35 Potassium 4.0 mmol/L (3.5-5.1) 10/20/20 07:35 Chloride 112 mmol/L (98-107) H 10/20/20 07:35 Carbon Dioxide 24 mmol/L (21-32) 10/20/20 07:35 Anion Gap 6.0 (3-11) 10/20/20 07:35 BUN 26 mg/dl (7-18) H 10/20/20 07:35 Creatinine 0.91 mg/dl (0.6-1.2) 10/20/20 07:35 Est Cr Clr Drug Dosing 66.7 ml/min 10/20/20 07:35 Est GFR ( Amer) 82.3 10/20/20 07:35 Est GFR (Non-Af Amer) 71.0 10/20/20 07:35 BUN/Creatinine Ratio 28.6 (10-20) H 10/20/20 07:35 Glucose 124 mg/dl (70-99) H 10/20/20 07:35 Calcium 9.1 mg/dl (8.5-10.1) 10/20/20 07:35 COVID-19 Eval Order Covid19 [facility] 10/19/20 08:21 Hepatitis C Ab Screen Neg (Neg) 10/20/20 07:35 SARS-CoV-2, RNA, NAAT NEGATIVE (NEGATIVE) 10/19/20 08:21 Blood Type O Negative 09/22/20 10:34 Antibody Screen NEGATIVE 09/22/20 10:34 Impressions Knee X-Ray 10/19/20 11:42 TWO VIEWS LEFT KNEE CLINICAL HISTORY: Postoperative examination. FINDINGS: AP and crosstable lateral portable views of the left knee are obtained. A left knee arthroplasty is in near anatomic alignment. There has been undersurface remodeling of the patella. No acute fracture is seen. There are expected postoperative changes around the knee including a surgical drain, soft tissue edema, and subcutaneous gas. IMPRESSION: Expected postoperative changes status post left knee arthroplasty. No acute fracture is seen. ACT 112: Negative or not required by law. Electronically signed by: Herminio Vilbert, M.D. 10/19/2020 12:20 PM
[2020-10-20] MEDS: METHYLPHENIDATE HCL 10 MG TABLET PO SCH (12:53)
--- NOTE | 2020-10-21 08:16 | Discharge Summary ---
Date of Service date of discharge: October 20, 2020 date of admission: 10-19-20 Admission HPI Per Admitting Provider Wendi is a 55 year old female who complains of left knee pain, presents for pre- op evaluation prior to a left total knee replacement by dr Nicolas at [facility]. she complains of pain, decreased range of motion, instability and stiffness in her left knee. she states that the symptoms have been chronic and non-traumatic. she states that the symptoms occur constantly with intermittent worsening. Currently the patient states that the symptoms are moderate-severe. The pain is described as aching, sharp and throbbing. The symptoms occur continuously. The symptoms are aggravated by ascending stairs, daily activities, first steps while awake walking. Prior NSAIDs include IBU and Aleve. she has been treated with previous cortisone and visco injections in the past without much relief. she has had multiple left knee arthroscopies, most recent summer. she has failed conservative measures and would like to proceed with left TKA. she is on chronic pain medications and is managed by Dr Booth Principal Diagnosis left knee arthritis Discharge Exam Constitutional WD/WN, vitals as above no acute distress Musculoskeletal left knee: NVDI, calf SNT, negative dorothea sign. DP palpable, able to wiggle toes/ankle movement without difficulty. dressing clean dry and intact. expected post-operative bruising noted. Discharge Data Allergies Allergy/AdvReac Type Severity Reaction Status Date / Time enoxaparin Allergy Unknown RASH Verified 10/19/20 08:39 Sulfa (Sulfonamide Allergy Unknown HIVES TO Verified 10/19/20 08:39 Antibiotics) SULFA DRUGS Procedures Performed Operation Date: 10/19/20 10:00 Actual Procedures p Left Total Knee Arthroplasty(Left) - Ronald Nicolas DO Ordered Studies 10/19/20 05:00 US - OR guided needle placemen Routine Hospital Course (1) Arthritis of knee, left: Postop day 1 status post left total knee arthroplasty. PT/OT protocols. Weightbearing as tolerated. DVT prophylaxis-aspirin p.o. twice daily, SCDsNISHANT. Pain management as written. DC planning-patient is planning for home health services upon discharge. Total Time Total Time Spent Total Time Spent (In Minutes): 20 Total Time Includes: Examination of the Patient, Discharge Planning and Medication Reconciliation Discharge Plan Discharge Items Patient Disposition: Home - Home Health Services Reason For Visit: Unilateral Primary Osteoarthritis, Left Knee Discharge Diagnosis: left total knee replacement Activity: Per Instructions section Lifting: Wait until after follow-up appointment Weightbearing Comment: WBAT with walker Non-emergency contact: Surgeon Call non-emergency contact if: you have any medication questions, your temperature is above 101, your wound has increased redness, your wound has increased drainage and your wound pain has increased Follow-up/Referrals: Estuardo Booth MD [Primary Care Provider] - Diet: Regular Addtl Attending Provider Instructions: ACTIVITY RECOMMENDATIONS: SELF CARE INSTRUCTIONS AFTER TOTAL KNEE REPLACEMENT A. You may need to continue a physical therapy program after discharge from the hospital. There are several options available to you. Your doctor will assist you in selecting the best one for you. 1. An out-patient facility 2 to 3 times a week for therapy or home therapy. 2. Continue working on all exercises taught to you in the hospital. Your goals should be to increase bending of your knee to 90 degrees and beyond and to fully straighten your knee. B. You may progress at your own pace from walking with a walker or crutches to a cane; then to no assistive devices. C. Make walking a part of your daily routine. Be up as much as comfortable with rest periods throughout the day. Rest with leg elevation is very important. Use the ice wrap frequently for the first 3-4 weeks. D. There are no restrictions on activities. You may ride in a car, shop, participate in administrative sales assistant and all social activities. E. Wear the long elastic stockings (NISHANT hose) 20 hours a day for 2 weeks after surgery. They can be removed several times a day for laundering and for a bath. F. You may shower, no tub baths until cleared by your doctor. SPECIAL CARE INSTRUCTIONS: VERY IMPORTANT TO READ AND REVIEW A. There are a few signs you need to watch for after you are home. Call [facility] if you notice any of the followin. Increased severe knee pain. Some pain is expected especially when you exercise. 2. Increased swelling in your leg or knee; pain or swelling of the calf muscle in either lower leg. 3. Any fluid drainage from the incision. 4. Shortness of breath or chest pain. B. Please call [facility] at if you have any concerns or questions about your operation or recovery. The doctor or his nurse will return your call promptly. C. You must take antibiotics before dental work, bladder, bowel or other surgery. Your doctor will provide you with a permanent care to carry describing thi s precaution. IMPORTANT: * REMEMBER TO TAKE ASPIRIN, 81 MG, TWICE DAILY FOR 4 WEEKS UNLESS OTHERWISE DIRECTED. THIS IS YOUR BLOOD THINNER. * HIGH RISK PATIENTS MAY BE PRESCRIBED A STRONGER BLOOD THINNER. THIS WILL BE PROVIDED AT DISCHARGE. * CALL IF INCREASED PAIN, REDNESS, DRAINAGE OR FEVER GREATER THAT 101. * WEAR NISHANT HOSE 20 HOURS PER DAY FOR 2 WEEKS. * ANIKET Dressing- This is a large suction dressing covering your incision. This will help pull any excess drainage from the wound and allow your incision to heal properly. You may shower with this if you can keep the unit outside of the shower. If any bleeding or leakage is noted please call your doctor's office. This will remain on your incision for 7 days and then should be remov ed. This can be done yourself or by the home nursing staff if applicable. The entire unit is disposable once removed. Once removed, keep incision clean and dry. If redness or drainage is noted, please call your surgeon. ONCE ANIKET IS REMOVED: DERMABOND Prineo- This is a mesh tape dressing that is covered with glue. It should remain in place until the incision is properly healed, usually 10-14 days. This dressing is designed to naturally slough off. You may trim the excess mesh tape as it peels off. Incision may be briefly wet in a shower. Dry immediately by blotting with a clean, dry towel. Do not bath or swim until instructed by your doctor. Do not scratch, rub, or pick at the dressing. Do not apply any topical ointments or lotions until dressing is completely removed and/or instructed by your doctor. There may be a small piece of suture material at one end of your incision. Do not pull or trim this. If it is bothersome or catching on clothing, you may cover it with a band-aid. IF INCISION IS LEAKING THROUGH DRESSING, CALL THE OFFICE . FOLLOW UP VISIT: If appointment is not already scheduled: Please call [facility] to make a follow-up appointment for 2 weeks after your surgery at . Stand-Alone Forms: My [facility], Opioid Pain Management, Smoking Cessation Medications and DC Order Prescriptions: New acetaminophen 500 mg Tablet 1,000 mg PO Q8 14 Days Qty: 84 RF: 0 aspirin 81 mg Tablet,Delayed Release (Dr/Ec) 81 mg PO BID 30 Days Qty: 60 RF: 0 polyethylene glycol 3350 [Miralax] 17 gram powder in packet 17 g PO DAILY PRN (Reason: constipation) Qty: 5 RF: 0 oxycodone 5 mg Tablet 5 mg PO Q4H MDD 6 PRN (Reason: pain) Qty: 30 RF: 0 Continued lisinopril 20 mg tablet 20 mg PO QAM RF: 0 gabapentin [Neurontin] 600 mg Tablet 600 mg PO TID RF: 0 methylphenidate HCl [Ritalin] 10 mg tablet 10 mg PO UD RF: 0 methylphenidate HCl [Ritalin] 20 mg tablet 20 mg PO QAM RF: 0 metoprolol succinate [Toprol XL] 100 mg Tablet Extended Release 24 Hr 100 mg PO QAM RF: 0 sertraline [Zoloft] 100 mg Tablet 100 mg PO QAM RF: 0 omeprazole 20 mg capsule,delayed release(DR/EC) 20 mg PO QAM RF: 0 fluconazole 100 mg tablet 100 mg PO DAILY PRN (Reason: yeast infection) RF: 0 cefadroxil 500 mg capsule 500 mg PO BID RF: 0 trazodone 50 mg Tablet 50 mg PO HS PRN (Reason: Sleep) RF: 0 Discontinued oxycodone-acetaminophen [Percocet] 5-325 mg tablet 1 tab PO TID PRN (Reason: pain) RF: 0 Discharge Orders: Discharge Order (Routine); Ordered 10/20/20 Ordered By: Venu Ibarra/Other Patient Handouts: DVT Post Op Prevention Admission Data Admit Date/Time: 10/19/20 11:42 Attending Provider: Ronald Nicolas Admit Provider: Ronald Nicolas Primary Care Provider: Estuardo Booth Other Providers: [facility],Home Healthcare Other Interventions: Discharge Summary Assessment (RN) Last Done: 10/20/20 12:31
== END 2020-10-20 13:31 | disposition home health service (06) ==
LOC: 3E 08:03 → ASU 08:03

== ENCOUNTER 2025-03-19 11:30 | Inpatient (IN) ==
[2025-03-19] MEDS: ONDANSETRON INJ 2 MG/ML 2 ML VIAL IV STA (12:01)
[2025-03-19] MEDS: ALBUT/IPRATROP 3MG/0.5MG NEB 3 ML VIAL INH STA (12:02)
[2025-03-19] MEDS: SODIUM CHLORIDE 0.9% 500 ML IV STA (12:03)
[2025-03-19 12:13] LABS: Hematocrit (blood only) 45.4 % (37.0-47.0); Hemoglobin 15.3 g/dl (12.0-16.0); Immature Granulocytes # (auto) 0.09 K/uL (0.01-0.20); Immature Granulocytes % (auto) 0.5 %; Mean Corpuscular Hemoglobin 31.4 pg (25.0-34.0); Mean Corpuscular Volume 93.0 fL (80.0-100.0); Platelet Count 360 K/uL (130-400); RDW Standard Deviation 44.5 fL (36.4-46.3); Red Blood Count 4.88 M/uL (4.20-5.40); White Blood Count 16.83 K/ul (4.8-10.8)
--- NOTE | 2025-03-19 12:18 | Emergency Department Note ---
Impression & Plan SOB (shortness of breath), Pneumonia, Respiratory distress, Leukocytosis, Rhinovirus infection ED Provider Note NAME: CHRISTIANO ROSE AGE: 60 SEX: F : 1965 ARRIVES VIA: Walk-In INFORMANT: [Patient][mother] ED PROVIDER(S): [Herminio Sommers MD] CHIEF COMPLAINT: Shortness of breath HISTORY OF PRESENT ILLNESS: The patient is a 60-year-old female who states that for 3 days, she has been coughing with chills and sweats. She has been short of breath. The cough has been productive. She has had a stuffy nose and she has felt quite ill. She also, has been vomiting and is concerned for dehydration. No sick contacts, no known lung disease but she is a smoker. PMHx/PSHx/Social Hx: See Below PHYSICAL EXAM: GENERAL: Patient is in mild respiratory distress. HEENT: No acute trauma, normocephalic atraumatic, mucous membranes dry, no nasal congestion. NECK: No stridor, no adenopathy, no meningismus, trachea is midline. LUNGS: Diminished breath sounds with wheezing and rhonchi bilaterally. She does have an increased respiratory rate and does appear to be in some mild respiratory distress. HEART: Tachycardic, regular rhythm, no obvious murmur. ABDOMEN: Soft, nontender, no peritonitis. EXTREMITIES: No cyanosis, full range of motion of all the joints without pain or difficulty. NEUROLOGIC: Oriented x 3, no acute motor or sensory deficits, no focal weakness. SKIN: No jaundice, no diaphoresis. DIFFERENTIAL DIAGNOSIS: Bronchitis or pneumonia, dehydration, CHF, viral illness, pneumothorax, among others. EMERGENCY DEPARTMENT PROCEDURES: MEDICAL DECISION MAKING: There is a moderate leukocytosis, this would be consistent with infection. There is a normal hemoglobin and platelet count. No bandemia. No coagulopathy. VBG does not show acidosis or CO2 retention. There is no renal failure or significant electrolyte abnormality. Lactic acid is somewhat elevated consistent with potential sepsis versus dehydration. No concerning liver enzyme elevation. ECG shows a sinus rhythm, no ST elevation. Cardiac enzyme testing x 1 is elevated, this troponin elevation could be secondary to cardiac injury or mismatch from her dyspnea. Chest x-ray shows a subtle right lower lung pneumonia and findings of COPD. Urinalysis does not show findings of infection. Respiratory BioFire was positive for rhinovirus. Chest CT did not show PE, pneumonia was seen bilaterally. Patient did appear to be in some mild respiratory distress. She received 2 DuoNebs. She was given a liter saline bolus. She received IV Zofran for nausea. She received IV Solu-Medrol to help with her bronchospasm. She received IV ceftriaxone as antibiotic coverage. With the above interventions, the patient is breathing easier and feeling improved. The patient has a leukocytosis, pneumonia, rhinovirus. Presents in respiratory stress. She was found to have an elevation to her cardiac troponin. Admission is warranted. I did speak with the patient and case management, the on-call hospitalist was consulted. Prior/Outside records/notes reviewed: None ECG per my interpretation: Indication was shortness of breath. The ECG shows a sinus rhythm with some PVCs. There is an old anterior infarct. There is no acute ST elevation, LVH is present. QTc was 421. Continuous Cardiac Monitoring per my interpretation: An order was placed for continuous cardiac monitoring. The monitor shows a rate of 92 with normal sinus rhythm. Imaging/x-ray results per my interpretation: Chest x-ray shows findings of COPD, no pneumothorax or CHF. There may be a subtle infiltrate in the right lower lobe. Chronic Medical/Social conditions affecting care: None Care/Management discussed with: Case management, the on-call hospitalist. Level of care consideration(s): After review of the information above and other included data: --I believe the patient requires escalation of care to admission Critical Care Note: I have personally spent 39 minutes of critical care time in the direct management of this patient. This includes bedside care, interpretation of diagnostic studies, and testing, discussion with consultants, patient, and family members, and other required patient management activities. This 39 minutes is in excess of all separately billable procedures. DISPOSITION: Admission Past Med/Surg History Problem List (Updated 03/19/25 @ 17:40 by Herminio Sommers MD) Rhinovirus infection (Acute) Leukocytosis (Acute) Respiratory distress (Acute) Pneumonia (Acute) SOB (shortness of breath) (Acute) Fibromyalgia Elevated troponin COPD (chronic obstructive pulmonary disease) Pneumonia Sepsis Tobacco abuse (Chronic) Hypertension (Chronic) ADHD (Chronic) GERD (gastroesophageal reflux disease) (Chronic) Depression (Chronic) Anxiety (Chronic) Medical History Neuropathy bilateral hands Chronic neck pain with radiculopathy -- unable to lay on right side. Full ROM Lumbar strain Low back pain with sciatica Low back pain with sciatica Contusion of foot Acute gastroenteritis Acute gastroenteritis Acute gastroenteritis Cervical radiculopathy Dehydration Hypokalemia Knee pain Knee pain, left Lumbar strain Pain, dental Radicular low back pain Knee pain, right Painful total knee replacement, right Infection of total right knee replacement Encounter for pre-operative examination Arthritis of knee, left Right rotator cuff tear Arthritis of right acromioclavicular joint History of COVID-2019 > resolved Prediabetes Hgb A1C 6.2 in 08/2020, no meds, diet control Osteoarthritis MSSA (methicillin susceptible Staphylococcus aureus) infection HX Surgical History (Updated 03/19/25 @ 14:29 by YARIEL Andrews) Total knee replacement status bilat History of bilateral tubal ligation S/P revision of total knee right knee revision x2 (r/t infection) History of repair of rotator cuff right History of esophagogastroduodenoscopy (EGD) History of colonoscopy History of tonsillectomy History of carpal tunnel release right Family History Brother Family history of esophageal cancer Other Family history of colon cancer in father No family history of adverse response to anesthesia Social History Smoking Status: Former smoker Cigarettes Per Day: 1/2 ppd x 20 years; Second Hand Exposure: No; Do You Dip or Chew Tobacco: No; Hx Alcohol Use: No Hx Substance Use: No Preferred Language: Mohawk Communication Ability: Effective Visual Impairment: No Limitations Liquid Fertilizer Servicer Required: No Beliefs That Will Affect Care: None Current Living Situation: Parent Current Living Situation Comment: MOTHER Feels Safe at Home: Yes Assistive Devices: Glasses Allergies Allergies Allergy/AdvReac Type Severity Reaction Status Date / Time enoxaparin Allergy Unknown RASH Verified 03/19/25 14:06 Sulfa (Sulfonamide Allergy Unknown HIVES TO Verified 03/19/25 14:06 Antibiotics) SULFA DRUGS Home Meds Home Medications Medication Instructions Recorded Confirmed methylphenidate HCl 10 mg tablet 10 mg PO DIRECTED 07/05/18 03/19/25 (Ritalin) methylphenidate HCl 20 mg tablet 20 mg PO QAM 07/05/18 03/19/25 (Ritalin) sertraline 100 mg tablet (Zoloft) 100 mg PO QAM 07/05/18 03/19/25 aspirin 81 mg tablet,delayed 81 mg PO DAILY 03/19/25 03/19/25 release gabapentin 800 mg tablet 800 mg PO TID 03/19/25 03/19/25 metoprolol succinate 25 mg 25 mg PO DAILY 03/19/25 03/19/25 tablet,extended release 24 hr mirtazapine 15 mg tablet 15 mg PO HS 03/19/25 03/19/25 omeprazole 40 mg capsule,delayed 40 mg PO DAILY 03/19/25 03/19/25 release sertraline 25 mg tablet 25 mg PO DAILY 03/19/25 03/19/25 Previous Rx's Medication Instructions Recorded oxycodone 5 mg tablet 5 mg PO Q4H PRN pain #18 tabs 12/19/22 Results & Data (ED) Vital Signs Vital Signs - 24 hr 03/19/25 11:30 03/19/25 11:30 03/19/25 11:30 Temperature 37.5 C Temperature Source Oral Pulse Rate Pulse Rate [Left Finger] 94 H Pulse Rate from SpO2 Sensor Pulse Rhythm [Left Finger] Regular Pulse Strength [Left Finger] Normal Respiratory Rate 23 Respiratory Effort / Characteristics Non-Labored Non-Labored Spontaneous Respiratory Depth Normal Respiratory Pattern Regular Regular Blood Pressure Blood Pressure [Right Arm] 165/137 H Blood Pressure Mean Blood Pressure Mean [Right Arm] 146 Blood Pressure Position [Right Arm] Lying Pulse Oximetry 93 Oxygen Delivery Method Nasal Cannula Room Air Nasal Cannula Oxygen Flow Rate 2 Sepsis Recent Fever Within 48 Hours Sepsis New/Unexplained Change in Mental Status Sepsis Action Taken by Nursing 03/19/25 11:36 03/19/25 11:55 03/19/25 11:57 Temperature 36.6 C Temperature Source Temporal Artery Scan Pulse Rate 105 H 92 H Pulse Rate [Left Finger] Pulse Rate from SpO2 Sensor Pulse Rhythm [Left Finger] Pulse Strength [Left Finger] Respiratory Rate 26 H Respiratory Effort / Characteristics Spontaneous Respiratory Depth Respiratory Pattern Regular Blood Pressure 129/83 Blood Pressure [Right Arm] Blood Pressure Mean 98 Blood Pressure Mean [Right Arm] Blood Pressure Position [Right Arm] Pulse Oximetry 94 92 Oxygen Delivery Method Room Air Room Air Oxygen Flow Rate Sepsis Recent Fever Within 48 Hours No Sepsis New/Unexplained Change in Mental Status No Sepsis Action Taken by Nursing No Action Required 03/19/25 12:00 03/19/25 13:06 03/19/25 13:30 Temperature Temperature Source Pulse Rate 82 84 Pulse Rate [Left Finger] 88 Pulse Rate from SpO2 Sensor 80 83 Pulse Rhythm [Left Finger] Regular Pulse Strength [Left Finger] Normal Respiratory Rate 17 15 25 H Respiratory Effort / Characteristics Non-Labored Spontaneous Respiratory Depth Normal Respiratory Pattern Regular Blood Pressure 147/108 H Blood Pressure [Right Arm] 155/109 H Blood Pressure Mean 121 Blood Pressure Mean [Right Arm] 124 Blood Pressure Position [Right Arm] Sitting Pulse Oximetry 98 91 Oxygen Delivery Method Nasal Cannula Nasal Cannula Oxygen Flow Rate 2 2 Sepsis Recent Fever Within 48 Hours Sepsis New/Unexplained Change in Mental Status Sepsis Action Taken by Nursing 03/19/25 14:00 03/19/25 15:00 Temperature Temperature Source Pulse Rate 83 Pulse Rate [Left Finger] 96 H Pulse Rate from SpO2 Sensor 83 Pulse Rhythm [Left Finger] Regular Pulse Strength [Left Finger] Normal Respiratory Rate 16 20 Respiratory Effort / Characteristics Non-Labored Spontaneous Respiratory Depth Normal Respiratory Pattern Regular Blood Pressure 148/104 H Blood Pressure [Right Arm] 161/111 H Blood Pressure Mean 118 Blood Pressure Mean [Right Arm] 127 Blood Pressure Position [Right Arm] Sitting Pulse Oximetry 93 95 Oxygen Delivery Method Nasal Cannula Room Air Oxygen Flow Rate 2 Sepsis Recent Fever Within 48 Hours Sepsis New/Unexplained Change in Mental Status Sepsis Action Taken by Prison Medications Current Medication List: was personally reviewed by me Laboratory Data Attestation: I reviewed the patient's lab results. 03/19/25 11:50 03/19/25 11:50 Lab Results 03/19/25 03/19/25 03/19/25 Range/Units 11:50 12:44 14:04 WBC 16.83 H (4.8-10.8) K/ul RBC 4.88 (4.20-5.40) M/uL Hgb 15.3 (12.0-16.0) g/dl Hct 45.4 (37.0-47.0) % MCV 93.0 (80.0-100.0) fL MCH 31.4 (25.0-34.0) pg MCHC 33.7 (32.0-36.0) g/dL RDW Std Deviation 44.5 (36.4-46.3) fL RDW Coeff of Jan 13.0 (11.5-14.5) % Plt Count 360 (130-400) K/uL MPV 10.1 (9.4-12.4) fL Immature Gran % (Auto) 0.5 % Neut % (Auto) 82.5 % Lymph % (Auto) 9.4 % [place] % (Auto) 7.2 % Eos % (Auto) 0.0 % Baso % (Auto) 0.4 % Neut # (Auto) 13.87 H (1.40-6.50) K/uL Lymph # (Auto) 1.59 (1.20-3.40) K/uL [place] # (Auto) 1.22 H (0.11-0.59) K/uL Eos # (Auto) 0.00 (0.00-0.50) K/uL Baso # (Auto) 0.06 (0.00-0.20) K/uL Immature Gran # (Auto) 0.09 (0.01-0.20) K/uL PT 10.9 (9.0-12.0) Seconds INR 1.0 (0.9-1.1) APTT 28 (21-31) Seconds PTT Ratio 1.0 VBG pH 7.37 (7.36-7.41) VBG pCO2 42 (38-50) mmHg VBG pO2 39 mmHg VBG HCO3 24 mmol/L VBG O2 Saturation 64.1 % VBG Base Excess -1.1 mEq/L Sodium 137 (136-145) mmol/L Potassium 4.1 (3.5-5.1) mmol/L Chloride 98 (98-107) mmol/L Carbon Dioxide 25 (21-32) mmol/L Anion Gap 14 H (3-11) BUN 29 H (6-23) mg/dl Creatinine 0.85 (0.6-1.2) mg/dl Est Cr Clr Drug Dosing Not Reportable eGFR 78.38 BUN/Creatinine Ratio 34.1 H (10-20) Glucose 136 H (70-99(Fasting)) mg/dl Lactate 2.8 H* (0.4-2.0) mmol/L Calcium 10.4 H (8.6-10.3) mg/dl Magnesium 2.1 (1.7-2.4) mg/dl Total Bilirubin 0.5 (0.2-1.0) mg/dl AST 14 (13-39) U/L ALT 9 (7-52) U/L Alkaline Phosphatase 88 (34-104) U/L Troponin I High Sens 341.3 H* 364.1 H* (0-14) pg/ml Total Protein 8.4 H (6.0-8.3) gm/dl Albumin 4.7 (3.4-5.0) gm/dl Globulin 3.7 (2.5-4.0) gm/dl Albumin/Globulin Ratio 1.3 (0.9-2) Procalcitonin 0.46 (0-0.5) ng/ml Urine Color Urine Appearance (Clear) Urine pH (4.5-7.5) Ur Specific Many (1.000-1.030) Urine Protein (Negative) Urine Glucose (UA) (Negative) Urine Ketones (Negative) Urine Blood (Negative) Urine Nitrite (Negative) Urine Bilirubin (Negative) Urine Urobilinogen (Negative) Ur Leukocyte Esterase (Negative) Urine WBC (Auto) (0-5) /hpf Urine RBC (Auto) (0-2) /hpf U Hyaline Cast (Auto) (0-2) /lpf U Epithel Cells (Auto) (0-2) /hpf Urine Bacteria (Auto) (None Seen) Urine Comment Adenovirus (PCR) Not Detected (NotDetected) B. pertussis DNA (PCR) Not Detected (NotDetected) B.parapertussis DNA PCR Not Detected (NotDetected) C. pneumoniae DNA (PCR) Not Detected (NotDetected) Coronavirus OC43 (PCR) Not Detected (NotDetected) Coronavirus HKU1 (PCR) Not Detected (NotDetected) Coronavirus 229E (PCR) Not Detected (NotDetected) SARS-CoV-2 (PCR) Not Detected (NotDetected) Coronavirus NL63 (PCR) Not Detected (NotDetected) Human Metapneumovir PCR Not Detected (NotDetected) Influenza Type A (PCR) Not Detected (NotDetected) Influenza Type B (PCR) Not Detected (NotDetected) M. pneumoniae (PCR) Not Detected (NotDetected) Parainfluenza 1 (PCR) Not Detected (NotDetected) Parainfluenza 2 (PCR) Not Detected (NotDetected) Parainfluenza 3 (PCR) Not Detected (NotDetected) Parainfluenza 4 (PCR) Not Detected (NotDetected) RSV (PCR) Not Detected (NotDetected) Entero/Rhino (PCR) DETECTED A (NotDetected) 03/19/25 Range/Units 14:30 WBC (4.8-10.8) K/ul RBC (4.20-5.40) M/uL Hgb (12.0-16.0) g/dl Hct (37.0-47.0) % MCV (80.0-100.0) fL MCH (25.0-34.0) pg MCHC (32.0-36.0) g/dL RDW Std Deviation (36.4-46.3) fL RDW Coeff of Jan (11.5-14.5) % Plt Count (130-400) K/uL MPV (9.4-12.4) fL Immature Gran % (Auto) % Neut % (Auto) % Lymph % (Auto) % [place] % (Auto) % Eos % (Auto) % Baso % (Auto) % Neut # (Auto) (1.40-6.50) K/uL Lymph # (Auto) (1.20-3.40) K/uL [place] # (Auto) (0.11-0.59) K/uL Eos # (Auto) (0.00-0.50) K/uL Baso # (Auto) (0.00-0.20) K/uL Immature Gran # (Auto) (0.01-0.20) K/uL PT (9.0-12.0) Seconds INR (0.9-1.1) APTT (21-31) Seconds PTT Ratio VBG pH (7.36-7.41) VBG pCO2 (38-50) mmHg VBG pO2 mmHg VBG HCO3 mmol/L VBG O2 Saturation % VBG Base Excess mEq/L Sodium (136-145) mmol/L Potassium (3.5-5.1) mmol/L Chloride (98-107) mmol/L Carbon Dioxide (21-32) mmol/L Anion Gap (3-11) BUN (6-23) mg/dl Creatinine (0.6-1.2) mg/dl Est Cr Clr Drug Dosing eGFR BUN/Creatinine Ratio (10-20) Glucose (70-99(Fasting)) mg/dl Lactate (0.4-2.0) mmol/L Calcium (8.6-10.3) mg/dl Magnesium (1.7-2.4) mg/dl Total Bilirubin (0.2-1.0) mg/dl AST (13-39) U/L ALT (7-52) U/L Alkaline Phosphatase (34-104) U/L Troponin I High Sens (0-14) pg/ml Total Protein (6.0-8.3) gm/dl Albumin (3.4-5.0) gm/dl Globulin (2.5-4.0) gm/dl Albumin/Globulin Ratio (0.9-2) Procalcitonin (0-0.5) ng/ml Urine Color Yellow Urine Appearance Clear (Clear) Urine pH 5.5 (4.5-7.5) Ur Specific Many > 1.045 H (1.000-1.030) Urine Protein Trace H (Negative) Urine Glucose (UA) Negative (Negative) Urine Ketones 1+ H (Negative) Urine Blood 2+ H (Negative) Urine Nitrite Negative (Negative) Urine Bilirubin Negative (Negative) Urine Urobilinogen Negative (Negative) Ur Leukocyte Esterase Negative (Negative) Urine WBC (Auto) 0-5 (0-5) /hpf Urine RBC (Auto) 11-20 H (0-2) /hpf U Hyaline Cast (Auto) 0-2 (0-2) /lpf U Epithel Cells (Auto) 0-2 (0-2) /hpf Urine Bacteria (Auto) None Seen (None Seen) Urine Comment Adenovirus (PCR) (NotDetected) B. pertussis DNA (PCR) (NotDetected) B.parapertussis DNA PCR (NotDetected) C. pneumoniae DNA (PCR) (NotDetected) Coronavirus OC43 (PCR) (NotDetected) Coronavirus HKU1 (PCR) (NotDetected) Coronavirus 229E (PCR) (NotDetected) SARS-CoV-2 (PCR) (NotDetected) Coronavirus NL63 (PCR) (NotDetected) Human Metapneumovir PCR (NotDetected) Influenza Type A (PCR) (NotDetected) Influenza Type B (PCR) (NotDetected) M. pneumoniae (PCR) (NotDetected) Parainfluenza 1 (PCR) (NotDetected) Parainfluenza 2 (PCR) (NotDetected) Parainfluenza 3 (PCR) (NotDetected) Parainfluenza 4 (PCR) (NotDetected) RSV (PCR) (NotDetected) Entero/Rhino (PCR) (NotDetected) Administered Medications Methylphenidate HCl (Methylphenidate Hcl 10 Mg Tablet) 10 mg PO BID@1200,1600 ANGELIA Stop: 04/02/25 16:44 Last Admin: 03/19/25 16:34 Dose: Not Given Documented By: MAE Discontinued Medications Albuterol (Albut/Ipratrop 3mg/0.5mg Neb 3 Ml Vial) 3 ml INH NOW STA Stop: 03/19/25 11:50 Last Admin: 03/19/25 12:02 Dose: 3 ml Documented By: atif Albuterol (Albut/Ipratrop 3mg/0.5mg Neb 3 Ml Vial) 3 ml NEB NOW STA; Protocol Stop: 03/19/25 14:06 Last Admin: 03/19/25 14:17 Dose: 3 ml Documented By: atif Fluconazole (Fluconazole 50 Mg Tab) 150 mg PO NOW ONE Stop: 03/19/25 15:06 Last Admin: 03/19/25 15:35 Dose: 150 mg Documented By: atif Sodium Chloride (Nss) 500 mls @ 999 mls/hr IV .Q31M STA Stop: 03/19/25 12:19 Last Infusion: 03/19/25 12:52 Dose: Infused Documented By: atif Admin: 03/19/25 12:03 Dose: 999 mls/hr Documented By: atif Ceftriaxone Sodium (Rocephin) 2,000 mg in 50 mls @ 100 mls/hr IV NOW STA Stop: 03/19/25 14:26 Last Infusion: 03/19/25 17:13 Dose: Infused Documented By: Admin: 03/19/25 14:16 Dose: 100 mls/hr Documented By: atif Sodium Chloride (Nss) 500 mls @ 999 mls/hr IV .Q31M ONE Stop: 03/19/25 14:37 Last Infusion: 03/19/25 17:05 Dose: Infused Documented By: Admin: 03/19/25 14:17 Dose: 999 mls/hr Documented By: atif Acetaminophen (Ofirmev) 1,000 mg in 100 mls @ 400 mls/hr IV NOW STA Stop: 03/19/25 16:05 Last Infusion: 03/19/25 17:03 Dose: Infused Documented By: Admin: 03/19/25 16:33 Dose: 400 mls/hr Documented By: MAE Ioversol (Optiray 320 125ml) 115 ml IV ONCE ONE Stop: 03/19/25 13:23 Last Admin: 03/19/25 13:23 Dose: 115 ml Documented By: STEFFI Methylprednisolone (Methylprednisolone 125 Mg/2 Ml Vial) 125 mg IV NOW STA Stop: 03/19/25 11:50 Last Admin: 03/19/25 12:01 Dose: 125 mg Documented By: atif Morphine Sulfate (Morphine Sulfate 2 Mg/Ml Carp) 2 mg IV NOW STA Stop: 03/19/25 17:14 Last Admin: 03/19/25 17:19 Dose: 2 mg Documented By: MAE Ondansetron HCl (Ondansetron Inj 2 Mg/Ml 2 Ml Vial) 4 mg IV NOW STA Stop: 03/19/25 11:50 Last Admin: 03/19/25 12:01 Dose: 4 mg Documented By: atif Imaging Data Radiologist's Impression: Chest X-Ray 03/19/25 11:49 XR chest 1V portable CLINICAL HISTORY: Dyspnea COMPARISON STUDY: 05/13/2020 FINDINGS: Heart size and pulmonary vasculature are normal. Lungs are hyperexpanded suggesting emphysema. No consolidation or pleural effusion seen. No pneumothorax. IMPRESSION: No pneumonia seen. ACT 112: Negative or not required by law. Electronically signed by: Jimenez Yoon M.D. 03/19/2025 12:24 PM Chest CTA 03/19/25 12:34 CT angio chest PE protocol CT DOSE: 313.89 mGy.cm HISTORY: PE. TECHNIQUE: Multiple CTA images of the chest were obtained after the intravenous administration of 115 ml Optiray. Coronal and sagittal MIPS were obtained from the axial data set and were submitted for review. All measurements were obtained according to NASCET criteria. A dose lowering technique was utilized adhering to the principles of ALARA. COMPARISON STUDY: Chest x-ray earlier today and CT of 03/11/2013 FINDINGS: There are mild airway secretions in multiple lower lobe bronchi. There are scattered groundglass and reticular nodular opacities left lung greater than right. There is a 2 cm oval nodular density in the lingula. No pleural effusion or pneumothorax. No enlarged adenopathy. No pericardial effusion. No thoracic aortic dissection or aneurysm. Infrarenal abdominal aortic aneurysm is partially visualized, measures at least 3.4 cm AP dimension. No pulmonary embolism seen. There are mild thoracic spine degenerative changes. IMPRESSION: 1. No pulmonary embolism. 2. Early pneumonia, left greater than right. 2 cm nodular density in the lingula likely represents part of the pneumonia. Recommend follow-up chest CT in 3 months to make sure these findings resolve without underlying pulmonary nodule. 3. Partially visualized infrarenal abdominal aortic aneurysm. 4. Otherwise as described. ACT 112: Positive. There are findings on this exam that require communication between the performing entity and the patient following Patient Test Result Information Act ([place] Act 112) guidelines. The above report was generated using voice recognition software. It may contain grammatical, syntax or spelling errors. Electronically signed by: Jimenez Yoon M.D. 03/19/2025 1:43 PM Discharge Plan Visit Data Chief Complaint: Shortness of Breath/Dyspnea Stated Complaint: SOB, CHEST PAIN ED Provider: Herminio Sommers Discharge Problem: SOB (shortness of breath), Pneumonia, Respiratory distress, Leukocytosis, Rhinovirus infection Patient Disposition: Admitted As Inpatient Condition: Serious Discharge Instructions Interventions: ED Discharge Assessment Last Done: 03/19/25 15:53 Discharge Problem: Pneumonia Qualifiers: Pneumonia type: due to unspecified organism Laterality: bilateral Lung location: unspecified part of lung Qualified Code(s): J18.9 - Pneumonia, unspecified organism Leukocytosis Qualifiers: Leukocytosis type: unspecified Qualified Code(s): D72.829 - Elevated white blood cell count, unspecified
--- NOTE | 2025-03-19 12:25 | XRay Report ---
XR chest 1V portable CLINICAL HISTORY: Dyspnea COMPARISON STUDY: 05/13/2020 FINDINGS: Heart size and pulmonary vasculature are normal. Lungs are hyperexpanded suggesting emphyse ma. No consolidation or pleural effusion seen. No pneumothorax. IMPRESSION: No pneumonia seen. ACT 112: Negative or not required by law. Electronically signed by: Jimenez Yoon M.D. 03/19/2025 12:24 PM
[2025-03-19 12:42] LABS: Alanine Aminotransferase 9 U/L (7-52); Albumin Globulin Ratio 1.3 (0.9-2); Alkaline Phosphatase 88 U/L (34-104); Anion Gap 14 (3-11); Bilirubin,Total 0.5 mg/dl (0.2-1.0); Blood Urea Nitrogen 29 mg/dl (6-23); Calcium 10.4 mg/dl (8.6-10.3); Carbon Dioxide 25 mmol/L (21-32); Chloride 98 mmol/L (98-107); Globulin 3.7 gm/dl (2.5-4.0); Glucose 136 mg/dl (70-99(Fasting)); Magnesium 2.1 mg/dl (1.7-2.4); Potassium 4.1 mmol/L (3.5-5.1); Sodium 137 mmol/L (136-145); Total Protein 8.4 gm/dl (6.0-8.3)
[2025-03-19 12:50] LABS: INR 1.0 (0.9-1.1); Partial Thromboplastin Time 28 Seconds (21-31); Prothrombin Time 10.9 Seconds (9.0-12.0)
[2025-03-19 13:00] LABS: Chlamydia pneumoniae PCR Not Detected (NotDetected); Coronavirus 229E PCR Not Detected (NotDetected); Coronavirus CoV-2 (COVID19)PCR Not Detected (NotDetected); Coronavirus HKU1 PCR Not Detected (NotDetected); Coronavirus NL63 PCR Not Detected (NotDetected); Coronavirus OC43PCR Not Detected (NotDetected); Human Metapneumovirus PCR Not Detected (NotDetected); Parainfluenza Virus 1 PCR Not Detected (NotDetected); Parainfluenza Virus 2 PCR Not Detected (NotDetected); Parainfluenza Virus 3 PCR Not Detected (NotDetected); Parainfluenza Virus 4 PCR Not Detected (NotDetected); Respiratory Syncytial VirusPCR Not Detected (NotDetected); Rhinovirus/Enterovirus PCR DETECTED (NotDetected)
[2025-03-19 13:08] LABS: Base Excess VBG -1.1 mEq/L; HCO3 VBG 24 mmol/L; Oxygen Saturation VBG 64.1 %; PCO2 VBG 42 mmHg (38-50); PO2 VBG 39 mmHg; pH VBG 7.37 (7.36-7.41)
[2025-03-19] MEDS: OPTIRAY 320 125ml IV ONE (13:23)
--- NOTE | 2025-03-19 13:44 | CT Scan Report ---
CT angio chest PE protocol CT DOSE: 313.89 mGy.cm HISTORY: PE. TECHNIQUE: Multiple CTA images of the chest were obtained after the intravenous administration of 115 ml Optiray. Coronal and sagittal MIPS were obtained from the axial data set and were submitted for review. All measurements were obtained according to NASCET criteria. A dose lowering technique was u tilized adhering to the principles of ALARA. COMPARISON STUDY: Chest x-ray earlier today and CT of 03/11/2013 FINDINGS: There are mild airway secretions in multiple lower lobe bronchi. There are scattered ground glass and reticular nodular opacities left lung greater than right. There is a 2 cm oval nodular dens ity in the lingula. No pleural effusion or pneumothorax. No enlarged adenopathy. No pericardial effus ion. No thoracic aortic dissection or aneurysm. Infrarenal abdominal aortic aneurysm is partially vis ualized, measures at least 3.4 cm AP dimension. No pulmonary embolism seen. There are mild thoracic s pine degenerative changes. IMPRESSION: 1. No pulmonary embolism. 2. Early pneumonia, left greater than right. 2 cm nodular density in the lingula likely represents pa rt of the pneumonia. Recommend follow-up chest CT in 3 months to make sure these findings resolve wit hout underlying pulmonary nodule. 3. Partially visualized infrarenal abdominal aortic aneurysm. 4. Otherwise as described. ACT 112: Positive. There are findings on this exam that require communication between the performing entity and the patient following Patient Test Result Information Act ([place] Act 112) guidelines. The above report was generated using voice recognition software. It may contain grammatical, syntax o r spelling errors. Electronically signed by: Jimenez Yoon M.D. 03/19/2025 1:43 PM
--- NOTE | 2025-03-19 14:12 | History & Physical Report ---
Date of Service March 19, 2025 Assessment & Plan (1) Acute hypoxic respiratory failure: (2) Pneumonia: (3) COPD (chronic obstructive pulmonary disease): (4) Sepsis: (5) Elevated troponin: (6) Hypertension: (7) GERD (gastroesophageal reflux disease): (8) ADHD: (9) Tobacco abuse: (10) Depression: Plan 60 year old female with PMH significant for diaphragmatic hernia, hypertension, AAA, GERD, fibromyalgia, ADHD, depression/anxiety, and tobacco use who presents to the ED on 03/19/2025 with SOB and viral symptoms for 3 days. Acute hypoxic respiratory failure secondary to PNA COPD exacerbation Patient presenting with SOB and URI symptoms x3 days Hypoxic to 88% on RA in ED [employer] positive for rhino/enterovirus CXR revealed emphysema - patient has never been dosed with COPD but has 1/[id number] smoking history CT chest revealed early bilateral pneumonia L>R Labs significant for leukocytosis with left shift and elevated troponin VBG unremarkable Received nebs x3, solu-medrol, ceftriaxone in the ED Continue scheduled duonebs, solu-medrol 40mg bid, ceftriaxone and doxycycline O2 supplementation as needed to maintain sats >90% Sepsis Patient meets criteria for sepsis with leukocytosis, tachycardia, and tachypnea Lactate 2.8 Blood cultures pending Continue ceftriaxone and doxycycline as above Elevated troponin Initial troponin 341 with repeat 364 EKG without signs of ischemia Recheck q6hr x2 Discuss[address] Tovar via TT who recommends: aspirin, heparin, statin, echo --Patient cannot tolerate statin due to fibromyalgia but has been on zetia in the past so will order this to restart --Patient takes baby aspirin daily so will add 3 more today --Start low dose heparin gtt with bolus Hypertension Continue metoprolol ADHD Continue Ritalin GERD Continue PPI Fibromyalgia Continue gabapentin Depression/anxiety Continue sertraline Tobacco use Patient reports she quit 3 days ago with this illness Nicotine patch ordered Counseled on cessation DVT Prophylaxis: Heparin gtt Code Status: FULL CODE - As per discussion at bedside with the patient. PCP: Estuardo Booth Disposition: admit to [facility] Patient seen in collaboration with Dr Jackson. Please see addendum. I spent a total of 75 minutes coordinating, documenting and providing care for this patient excluding time spent in the performance of separately billed services or time spent by another provider/QHP. Admission and Anticipated Discharge Date Admission Date: 03/19/2025 History of Present Illness Chief Complaint: SOB Primary Care Provider: Estuardo Booth MD 60 year old female with PMH significant for diaphragmatic hernia, hypertension, AAA, GERD, fibromyalgia, ADHD, depression/anxiety, and tobacco use who presents to the ED on 03/19/2025 with SOB and viral symptoms for 3 days. Patient reports that she developed a head cold with sinus congestion, productive cough with yellow phlegm, and alternating chills and diaphoresis. She has associated SOB that has gotten progressively worse to the point where she felt like she couldn't breathe today, prompting evaluation. She reports chest pain but feels as though it was because her chest was so tight from not being able to take a deep breath. Denies abdominal pain, N/V/D. Denies sick contacts. Former cigarette smoker who quit 3 days ago when her symptoms came on. Lives with her mother. Allergies Allergy/AdvReac Type Severity Reaction Status Date / Time enoxaparin Allergy Unknown RASH Verified 03/19/25 14:06 Sulfa (Sulfonamide Allergy Unknown HIVES TO Verified 03/19/25 14:06 Antibiotics) SULFA DRUGS Home Medications Medication Instructions Recorded Confirmed Type methylphenidate HCl 10 mg tablet 10 mg PO DIRECTED 07/05/18 03/19/25 History (Ritalin) methylphenidate HCl 20 mg tablet 20 mg PO QAM 07/05/18 03/19/25 History (Ritalin) sertraline 100 mg tablet (Zoloft) 100 mg PO QAM 07/05/18 03/19/25 History oxycodone 5 mg tablet 5 mg PO Q4H PRN pain #18 tabs 12/19/22 03/19/25 Rx aspirin 81 mg tablet,delayed 81 mg PO DAILY 03/19/25 03/19/25 History release gabapentin 800 mg tablet 800 mg PO TID 03/19/25 03/19/25 History metoprolol succinate 25 mg 25 mg PO DAILY 03/19/25 03/19/25 History tablet,extended release 24 hr mirtazapine 15 mg tablet 15 mg PO HS 03/19/25 03/19/25 History omeprazole 40 mg capsule,delayed 40 mg PO DAILY 03/19/25 03/19/25 History release sertraline 25 mg tablet 25 mg PO DAILY 03/19/25 03/19/25 History Past Med/Surg History Problem List (Updated 03/19/25 @ 17:44 by YARIEL Devi) Acute hypoxic respiratory failure Rhinovirus infection (Acute) Leukocytosis (Acute) Respiratory distress (Acute) Pneumonia (Acute) SOB (shortness of breath) (Acute) Fibromyalgia Elevated troponin COPD (chronic obstructive pulmonary disease) Pneumonia Sepsis Tobacco abuse (Chronic) Hypertension (Chronic) ADHD (Chronic) GERD (gastroesophageal reflux disease) (Chronic) Depression (Chronic) Anxiety (Chronic) Medical History Neuropathy bilateral hands Chronic neck pain with radiculopathy -- unable to lay on right side. Full ROM Lumbar strain Low back pain with sciatica Low back pain with sciatica Contusion of foot Acute gastroenteritis Acute gastroenteritis Acute gastroenteritis Cervical radiculopathy Dehydration Hypokalemia Knee pain Knee pain, left Lumbar strain Pain, dental Radicular low back pain Knee pain, right Painful total knee replacement, right Infection of total right knee replacement Encounter for pre-operative examination Arthritis of knee, left Right rotator cuff tear Arthritis of right acromioclavicular joint History of COVID-2019 > resolved Prediabetes Hgb A1C 6.2 in 08/2020, no meds, diet control Osteoarthritis MSSA (methicillin susceptible Staphylococcus aureus) infection HX Surgical History (Updated 03/19/25 @ 14:29 by YARIEL Devi) Total knee replacement status bilat History of bilateral tubal ligation S/P revision of total knee right knee revision x2 (r/t infection) History of repair of rotator cuff right History of esophagogastroduodenoscopy (EGD) History of colonoscopy History of tonsillectomy History of carpal tunnel release right Family History Brother Family history of esophageal cancer Other Family history of colon cancer in father No family history of adverse response to anesthesia Social History Smoking Status: Former smoker Cigarettes Per Day: 1/2 ppd x 20 years; Second Hand Exposure: No; Do You Dip or Chew Tobacco: No; Hx Alcohol Use: No Hx Substance Use: No Preferred Language: Lithuanian Communication Ability: Effective Visual Impairment: No Limitations Braid Maker Required: No Beliefs That Will Affect Care: None Current Living Situation: Parent Current Living Situation Comment: MOTHER Feels Safe at Home: Yes Assistive Devices: Glasses Review of Systems Review of Systems: All systems reviewed & are unremarkable except as noted in HPI & below Physical Exam Physical Exam: General/Psych: frail, sitting up in bed, NAD, slightly SOB with talking, oxymask in place Head: normocephalic, atraumatic Eyes: normal inspection, PERRL, conjunctivae pink ENT: external ear and nose normal, oropharynx normal Neck: normal visual inspection, trachea midline Respiratory: normal respiratory effort, lungs diminished in bilateral bases and left side with crackles, no accessory muscle use Cardiovascular: regular rate and rhythm, no murmur/rub/gallop, no JVD Extremities: no cyanosis or clubbing, normal peripheral pulses, no BLE edema Abdomen/GI: normal bowel sounds, soft, nontender Neurologic/MSK: A+Ox3, motor strength 5/5, moves all extremities Skin: no rashes, normal color, warm and dry Results & Data Results & Data Vital Signs (Past 12 Hours) Vital Signs Temp Pulse Resp BP Pulse Ox O2 Del Method 03/19/25 11:57 92 Room Air 03/19/25 11:55 92 H 03/19/25 11:36 36.6 C 105 H 26 H 129/83 94 Room Air Laboratory Results Short CBC 03/19/25 Range/Units 11:50 WBC 16.83 H (4.8-10.8) K/ul Hgb 15.3 (12.0-16.0) g/dl Hct 45.4 (37.0-47.0) % Plt Count 360 (130-400) K/uL BMP 03/19/25 11:50 Sodium 137 Potassium 4.1 Chloride 98 Carbon Dioxide 25 BUN 29 H Creatinine 0.85 Glucose 136 H Calcium 10.4 H Liver Function 03/19/25 Range/Units 11:50 Total Bilirubin 0.5 (0.2-1.0) mg/dl AST 14 (13-39) U/L ALT 9 (7-52) U/L Alkaline Phosphatase 88 (34-104) U/L Albumin 4.7 (3.4-5.0) gm/dl Urine 03/19/25 Range/Units 14:30 Urine Color Yellow Urine Appearance Clear (Clear) Urine pH 5.5 (4.5-7.5) Ur Specific [place] > 1.045 H (1.000-1.030) Urine Protein Trace H (Negative) Urine Glucose (UA) Negative (Negative) I have independently reviewed and interpreted patient's admitting labs including CBC, CMP, PTT, PT/INR, mag, troponin, lactate, procalcitonin Diagnostic Findings Chest X-Ray 03/19/25 11:49 XR chest 1V portable CLINICAL HISTORY: Dyspnea COMPARISON STUDY: 05/13/2020 FINDINGS: Heart size and pulmonary vasculature are normal. Lungs are hyperexpanded suggesting emphysema. No consolidation or pleural effusion seen. No pneumothorax. IMPRESSION: No pneumonia seen. ACT 112: Negative or not required by law. Electronically signed by: Jimenez Yoon M.D. 03/19/2025 12:24 PM Chest CTA 03/19/25 12:34 CT angio chest PE protocol CT DOSE: 313.89 mGy.cm HISTORY: PE. TECHNIQUE: Multiple CTA images of the chest were obtained after the intravenous administration of 115 ml Optiray. Coronal and sagittal MIPS were obtained from the axial data set and were submitted for review. All measurements were obtained according to NASCET criteria. A dose lowering technique was utilized adhering to the principles of ALARA. COMPARISON STUDY: Chest x-ray earlier today and CT of 03/11/2013 FINDINGS: There are mild airway secretions in multiple lower lobe bronchi. There are scattered groundglass and reticular nodular opacities left lung greater than right. There is a 2 cm oval nodular density in the lingula. No pleural effusion or pneumothorax. No enlarged adenopathy. No pericardial effusion. No thoracic aortic dissection or aneurysm. Infrarenal abdominal aortic aneurysm is partially visualized, measures at least 3.4 cm AP dimension. No pulmonary embolism seen. There are mild thoracic spine degenerative changes. IMPRESSION: 1. No pulmonary embolism. 2. Early pneumonia, left greater than right. 2 cm nodular density in the lingula likely represents part of the pneumonia. Recommend follow-up chest CT in 3 month s to make sure these findings resolve without underlying pulmonary nodule. 3. Partially visualized infrarenal abdominal aortic aneurysm. 4. Otherwise as described. ACT 112: Positive. There are findings on this exam that require communication between the performing entity and the patient following Patient Test Result Information Act ([place] Act 112) guidelines. The above report was generated using voice recognition software. It may contain grammatical, syntax or spelling errors. Electronically signed by: Jimenez Yoon M.D. 03/19/2025 1:43 PM ECG Additional Comments: I have independently reviewed and interpreted patient's admitting EKG which revealed: NSR with PVCs at a rate of 98bpm Code Status & VTE Plan Code Status Full Code Supervising Physician Co-Signing Physician Notes Attending addendum: The patient was seen and examined in emergency room in presence of the family member She has been complaining of cough, productive phlegm, shortness of breath and chills for the last 3 to 4 days Denies any chest pain, no abdominal pain nausea or vomiting and no problem with urine and bowel habit On examination Moderately shortness of breath at rest Afebrile, has been requiring 2 L to maintain saturation and blood pressure elevated at 148/104 Chestdecreased breath sounds bilaterally with crackles bibasilarly HeartS1-S2, regular no murmur appreciated Abdomenbenign Extremitiesno edema CNSalert, awake and oriented x 3,no focal sensory or motor deficit appreciated His labs, EKG and imaging studies reviewed Noted to have mildly elevated white count, elevated troponin at 340s without EKG changes and CT evidence of early pneumonia bilaterally She was started with intravenous ceftriaxone and doxycycline She has COPD with mild exacerbation and will be given nebulized bronchodilator and intravenous Solu-Medrol Strongly advised to quit smoking She will need 2 steps O2 saturation prior to discharge Her troponin will be rechecked and if still remains elevated we will need to discuss with churn operator margarine for possible heparin administration Agree with assessment and plan as outlined above by YARIEL Devi and take the full responsibility of care in the hospital Dr Aj Jackson
[2025-03-19] MEDS: cefTRIAXone SODIUM 2,000 MG/50 ML BAG IV STA (14:16)
[2025-03-19] MEDS: ALBUT/IPRATROP 3MG/0.5MG NEB 3 ML VIAL NEB STA (14:17)
[2025-03-19] MEDS: SODIUM CHLORIDE 0.9% 500 ML IV ONE (14:17)
[2025-03-19 14:56] LABS: Appearance Urine Clear (Clear); Bacteria Urine Automated None Seen (None Seen); Cast Urine Automated 0-2 /lpf (0-2); Epithelial Cell Urine Auto 0-2 /hpf (0-2); Glucose Urine UA Negative (Negative); WBC Urine Automated 0-5 /hpf (0-5)
[2025-03-19] MEDS: FLUCONAZOLE 50 MG TAB PO ONE (15:35)
[2025-03-19] MEDS ORDERED: ONDANSETRON INJ 2 MG/ML 2 ML VIAL IV PRN (16:26)
[2025-03-19] MEDS: ACETAMINOPHEN 1,000 MG/100 ML VIAL IV STA (16:33)
[2025-03-19] MEDS: METHYLPHENIDATE HCL 10 MG TABLET PO SCH (16:34)
[2025-03-19] MEDS ORDERED: Heparin IV Adult Wt-Based Low-Dose w/ INITIAL Bolus Protocol IV STA (16:59)
[2025-03-19] MEDS: MoRPHine SULFATE 2 MG/ML CARP IV STA ×2 (17:19→19:22)
[2025-03-19] MEDS: ASPIRIN 81 MG CHEW PO ONE ×2 (18:02→18:03)
[2025-03-19] MEDS: HEPARIN SOD (PORCINE) 1000 UNIT/ML IV ONE (18:06)
[2025-03-19] MEDS: HEPARIN 25000 UNIT/500 ML D5W 25,000 UNITS/500 ML BAG IV SCH (18:07)
[2025-03-19] MEDS: GABAPENTIN 800 MG TAB PO SCH (18:07)
[2025-03-19] MEDS: DICLOFENAC SOD 1% GEL 100 GM TUBE EXT SCH (18:15)
[2025-03-19] MEDS: ALBUT/IPRATROP 3MG/0.5MG NEB 3 ML VIAL NEB SCH (20:11)
[2025-03-19] MEDS: DOXYCYCLINE HYCLATE 100 MG CAP PO SCH (20:23)
[2025-03-19] MEDS: MIRTAZAPINE TAB 15 MG TAB PO SCH (20:33)
[2025-03-19] MEDS: PANTOprazole 40 MG/10 ML SYR IV ONE (22:37)
[2025-03-20 01:26] LABS: ANTI-Xa, UFH(UnfractionatedHep < 0.10 IU/ml (0.3-0.7)
[2025-03-20] MEDS: HEPARIN SOD (PORCINE) 1000 UNIT/ML IV ONE ×2 (01:49→17:37)
[2025-03-20 02:56] LABS: Anion Gap 8.0 (3-11); Blood Urea Nitrogen 20.0 mg/dl (6-23); Calcium 9.0 mg/dl (8.6-10.3); Carbon Dioxide 24.0 mmol/L (21-32); Chloride 104.0 mmol/L (98-107); Creatinine Clr Calc Pharmacy 71.6 ml/min; Glucose 162.0 mg/dl (70-99(Fasting)); Potassium 3.2 mmol/L (3.5-5.1); Sodium 136.0 mmol/L (136-145)
[2025-03-20 03:33] LABS: Hematocrit (blood only) 33.8 % (37.0-47.0); Hemoglobin 12.0 g/dl (12.0-16.0); Mean Corpuscular Hemoglobin 32.8 pg (25.0-34.0); Mean Corpuscular Volume 92.3 fL (80.0-100.0); Platelet Count 237 K/uL (130-400); RDW Standard Deviation 42.9 fL (36.4-46.3); Red Blood Count 3.66 M/uL (4.20-5.40); White Blood Count 7.27 K/ul (4.8-10.8)
[2025-03-20] MEDS: POTASSIUM CHLORIDE CRTAB 20 MEQ TABCR PO STA ×2 (05:06→09:05)
--- NOTE | 2025-03-20 06:03 | Electrocardiogram Report ---
Test Reason : Blood Pressure : */* mmHG Vent. Rate : 98 BPM Atrial Rate : 98 BPM P-R Int : 144 ms QRS Dur : 74 ms QT Int : 330 ms P-R-T Axes : 77 42 34 degrees QTcB Int : 421 ms Sinus rhythm with occasional Premature ventricular complexes Biatrial enlargement Left ventricular hypertrophy ( [place] product ) Anteroseptal infarct , age undetermined Abnormal ECG When compared with ECG of 19-Dec-2022 13:40, Sinus rhythm has replaced Junctional rhythm Vent. rate has increased by 34 bpm Anteroseptal infarct is now Present Confirmed by Vinh Thorne ([id number]) on 03/20/2025 6:03:06 AM Referred By: REFERRED SELF Confirmed By: Vinh Thorne
[2025-03-20] MEDS: ACETAMINOPHEN 325 MG TAB PO PRN (07:16)
[2025-03-20 07:29] LABS: ANTI-Xa, UFH(UnfractionatedHep 0.29 IU/ml (0.3-0.7)
--- NOTE | 2025-03-20 08:45 | Cardiology Consultation ---
Date of Consultation March 20, 2025 Assessment & Plan (1) Acute hypoxic respiratory failure: (2) Pneumonia: (3) COPD (chronic obstructive pulmonary disease): (4) Sepsis: (5) Elevated troponin: (6) Hypertension: (7) Tobacco abuse: Plan 60 year old female with PMHx significant for history of possible septal infarction (ECHO 10/2023), diaphragmatic hernia, HTN, AAA, GERD, fibromyalgia, ADHD, depression/anxiety, and tobacco use who presented to [facility] on 03/19/25 for evaluation of shortness of breath and viral symptoms for three days. CT Chest revealed early bilateral pneumonia L>R. Admitted for severe sepsis and acute hypoxic respiratory failure secondary to pneumonia, COPD exacerbation and rhinovirus URI. Previously seen outpatient in October [address] Tovar after an abnormal CTA Abdomen/Pelvis which showed decreased subendocardial attenuation of the left ventricular apex. ECHO (11/29/23) revealed mildly reduced systolic function (LVEF 45%) and LAD territory WMA suggestive of ischemia versus myocardial scar per chart review. Nuclear stress test recommended at that time but was never completed due to issues with insurance. Recommendations: * Patient likely has underlying chronic coronary artery disease with prior ECHO (10/2023) demonstrating mildly reduced systolic function (LVEF 45%) and LAD territory WMA * Remains stable and asymptomatic from a cardiac standpoint with no anginal symptoms * EKG upon admission with no acute ischemic changes * High-sensitivity troponins x3 ([phone]) elevated likely due to demand ischemia in setting of severe sepsis and pneumonia infection * Repeat ECHO today to reassess systolic function and WMAs * May consider nuclear stress test to rule out ischemia once hemodynamically stable * Continue IV heparin for 48 hours * Maintain O2 sats >90% and wean supplemental oxygen as tolerated * Continue aspirin, toPROL XL and Zetia as per current regimen * Will defer to primary team for ongoing management of severe sepsis and bilateral pneumonia * Continue to monitor on telemetry Case discussed and coordinated with Dr. Toth. Please see Dr. Toth notes for further recommendations. I spent a total of 45 minutes coordinating, documenting, and providing care for this patient excluding time spent in the performance of separately billed services or time spent by another provider/QHP. YARIEL Yuen Department of Cardiology Supervising Physician Co-Signing Physician Notes I spent a total of 50 minutes on the date of service in preparation, delivery, and documentation of the care provided to this patient, excluding any time spent in the performance of separately billed services. I have personally performed a history and physical examination on the patient. I have reviewed the advance practitioner's documentation, and I agree with, and take responsibility for the plan of care. 60-year-old female with past medical history of COPD, HTN, AAA, fibromyalgia, ADHD, depression/anxiety, tobacco use presented with symptoms of shortness of breath and fever chills and productive cough. Patient was admitted with bilateral pneumonia. Her ECG showed sinus rhythm with left ventricular hypertrophy, premature ventricular contractions and possible prior anteroseptal infarct with no acute ischemic changes. Subsequent ECG showed sinus rhythm with premature ventricular contractions and possible anteroseptal infarct with mildly prolonged QT interval of 487 ms. Cardiology was consulted for elevated troponins of 341 which trended upwards to 441 and downtrended to 432. She denies having any chest discomfort, orthopnea, PND, edema, palpitations, or syncope. She denies any prior history of CAD/CHF. There was an echocardiogram done back in which showed a mildly reduced left ventricular system acutely for which showed a mildly reduced evaluated by cardiology at the time and recommended a nuclear stress test however patient was not able to get this done. left ventricular systolic function. Patient was evaluated by cardiology at the time and recommending a nuclear stress test however patient was not able to get this done. This morning an echocardiogram was patient states that she was not able to lay down flat but is willing to retry the echocardiogram. Will reattempt. She is resting comfortably currently denies any chest discomfort. Elevated troponin likely secondary to demand ischemia from underlying sepsis from pneumonia. At some point patient will need an ischemic evaluation once she recovers from her sepsis/pneumonia. Possibly with Lexiscan nuclear stress test. Would avoid QT prolonging medications. Continue to monitor on telemetry. Heparin for 48 hours. History of Present Illness Reason for Consultation: Chest pain; Elevated troponin Requesting Physician: Abril Dorado MD Attending Physician: Abril Dorado MD History of Present Illness 60 year old female with PMHx significant for history of possible septal infarction (ECHO 10/2023), diaphragmatic hernia, HTN, infrarenal AAA, GERD, fibromyalgia, ADHD, depression/anxiety, and tobacco use who presented to [facility] on 03/19/25 for evaluation of shortness of breath and viral symptoms for three days. She notes cold-like symptoms with productive cough with yellow sputum along with flu-like symptoms for the past three days. Also notes nausea, vomiting and GI upset. Worsening dyspnea on exertion and unable to lay flat due to shortness of breath. Jeffrey heart pounding but denies irregular heart rhythm. Denies chest pressure or pain. She was feeling well prior to developing cold-like symptoms. 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 Denies worsening fatigue, exertional chest discomfort, or dyspnea on exertion that limits day-to-day activity. Denies tachy palpitations, lightheadedness, dizziness, or syncopal events. Denies worsening edema or recent weight gain. She was previously seen outpatient in October [address] Tovar and referred by primary care provider after abnormal CTA Abdomen/Pelvis showed decreased subendoccardial attenuation of the left ventricular apex. ECHO (11/29/23) revealed mildly reduced systolic function (LVEF 45%) and LAD territory WMA sugge stive of ischemia versus myocardial scar per chart review. Nuclear stress test recommended at that time but was never completed. She notes insurance issues after she was last seen in the office and had a difficult time getting an appointment after she got insurance. Quit smoking five days ago and smoked 1/2 ppd for 20 years. Denies alcohol or ilicit drug use. Denies significant family history of cardiovascular disease. Allergies Allergy/AdvReac Type Severity Reaction Status Date / Time enoxaparin Allergy Unknown RASH Verified 03/19/25 14:06 Sulfa (Sulfonamide Allergy Unknown HIVES TO Verified 03/19/25 14:06 Antibiotics) SULFA DRUGS Home Medications Medication Instructions Recorded Confirmed Type methylphenidate HCl 10 mg tablet 10 mg PO DIRECTED 07/05/18 03/19/25 History (Ritalin) methylphenidate HCl 20 mg tablet 20 mg PO QAM 07/05/18 03/19/25 History (Ritalin) sertraline 100 mg tablet (Zoloft) 100 mg PO QAM 07/05/18 03/19/25 History oxycodone 5 mg tablet 5 mg PO Q4H PRN pain #18 tabs 12/19/22 03/19/25 Rx aspirin 81 mg tablet,delayed 81 mg PO DAILY 03/19/25 03/19/25 History release gabapentin 800 mg tablet 800 mg PO TID 03/19/25 03/19/25 History metoprolol succinate 25 mg 25 mg PO DAILY 03/19/25 03/19/25 History tablet,extended release 24 hr mirtazapine 15 mg tablet 15 mg PO HS 03/19/25 03/19/25 History omeprazole 40 mg capsule,delayed 40 mg PO DAILY 03/19/25 03/19/25 History release sertraline 25 mg tablet 25 mg PO DAILY 03/19/25 03/19/25 History Patient History Medical History Neuropathy bilateral hands Chronic neck pain with radiculopathy -- unable to lay on right side. Full ROM Lumbar strain Low back pain with sciatica Low back pain with sciatica Contusion of foot Acute gastroenteritis Acute gastroenteritis Acute gastroenteritis Cervical radiculopathy Dehydration Hypokalemia Knee pain Knee pain, left Lumbar strain Pain, dental Radicular low back pain Knee pain, right Painful total knee replacement, right Infection of total right knee replacement Encounter for pre-operative examination Arthritis of knee, left Right rotator cuff tear Arthritis of right acromioclavicular joint History of COVID-2019 > resolved Prediabetes Hgb A1C 6.2 in 08/2020, no meds, diet control Osteoarthritis MSSA (methicillin susceptible Staphylococcus aureus) infection HX Surgical History (Updated 03/19/25 @ 14:29 by YARIEL Andrews) Total knee replacement status bilat History of bilateral tubal ligation S/P revision of total knee right knee revision x2 (r/t infection) History of repair of rotator cuff right History of esophagogastroduodenoscopy (EGD) History of colonoscopy History of tonsillectomy History of carpal tunnel release right Family History Brother Family history of esophageal cancer Other Family history of colon cancer in father No family history of adverse response to anesthesia Social History Smoking Status: Former smoker Tobacco Type: Cigarettes Cigarettes Per Day: 5 to 10, but around 1 in the winter; Second Hand Exposure: No; Do You Dip or Chew Tobacco: Yes; Hx Alcohol Use: No Hx Substance Use: No Preferred Language: Urdu Communication Ability: Effective Visual Impairment: No Limitations Cash Management Coordinator Required: No Beliefs That Will Affect Care: None Current Living Situation: Parent Current Living Situation Comment: MOTHER Feels Safe at Home: Yes Safety Concerns: Feels Safe At This Time Assistive Devices: None Review of Systems Review of Systems: See HPI for pertinent positives. All others negative other than those noted in the HPI. CONSTITUTIONAL: +fever, chills. No change in weight, No weakness, No fatigue. HEENT: No visual changes, No epistaxis, No bleeding gums, No dysphagia, PULMONARY: +productive cough, shortness of breath, recent change in breathing. No hemoptysis, No wheezing. CARDIOVASCULAR: +dyspnea on exertion. No chest pain, No edema, No palpitations, No syncope, No claudication, No calf pain. GASTROINTESTINAL: +nausea, vomiting. No change in appetite, No abdominal pain, No change in bowel habits, No significant heartburn, No diarrhea, No c onstipation, No blood in stools or black tarry stools, No dysphagia. HEMATOLOGIC: No abnormal bleeding and No bruising. NEUROLOGICAL: No falls, No dizziness, No lightheadedness, Normal balance, No h eadaches, and No weakness. PSYCH: No sleep disturbances, No mood changes. Physical Exam Physical Exam: Vital signs within normal limits as above. General: Well developed and nourished. No acute distress. A+Ox3. HEENT: Normocephalic. Atraumatic. EOMI. Conjunctiva and sclera clear. NECK: Trachea midline. No thyromegaly. No carotid bruits. No JVD. Carotid upstrokes are brisk. Heart: RRR. S1 and S2 noted. No murmur. No rubs or gallops. PMI non displaced. Lungs: Tachypnea. No accessory muscle use. Diminished breath sounds along bilateral lower lobes. No wheezes.No rhonchi. No rales. Abdomen: Normal bowel sounds. Soft. Nontender. No abdominal bruits. Extremities: Normal capillary refill. No edema. No clubbing or cyanosis. Skin: Warm and dry. NEURO: No focal deficits. PSYCH: Appropriate affect and insight. Results & Data Vital Signs (Past 12 Hours) Vital Signs Temp Pulse Pulse Resp BP Pulse Ox O2 Del Method 03/20/25 07:41 75 18 93 Oxymask 03/20/25 07:27 36.5 C 86 18 158/94 H 93 Nasal Cannula 03/20/25 03:38 37 C 72 16 158/87 H 92 Oxymask 03/19/25 23:11 36.7 C 72 16 129/79 92 Oxymask 03/19/25 22:03 67 O2 Flow Rate 03/20/25 07:41 5 03/20/25 07:27 5 03/20/25 03:38 3 03/19/25 23:11 3 03/19/25 22:03 Laboratory Results Cardiac Enzymes 03/19/25 03/19/25 03/19/25 Range/Units 11:50 14:04 19:35 AST 14 (13-39) U/L Troponin I High Sens 341.3 H* 364.1 H* 441.5 H* D (0-14) pg/ml 03/20/25 Range/Units 02:16 AST (13-39) U/L Troponin I High Sens 432.1 H* (0-14) pg/ml Coagulation 03/19/25 Range/Units 11:50 PT 10.9 (9.0-12.0) Seconds APTT 28 (21-31) Seconds CBC 03/19/25 03/20/25 Range/Units 11:50 02:16 WBC 16.83 H 7.27 (4.8-10.8) K/ul RBC 4.88 3.66 L (4.20-5.40) M/uL Hgb 15.3 12.0 D (12.0-16.0) g/dl Hct 45.4 33.8 L (37.0-47.0) % Plt Count 360 237 (130-400) K/uL Neut # (Auto) 13.87 H (1.40-6.50) K/uL Lymph # (Auto) 1.59 (1.20-3.40) K/uL [place] # (Auto) 1.22 H (0.11-0.59) K/uL Eos # (Auto) 0.00 (0.00-0.50) K/uL Baso # (Auto) 0.06 (0.00-0.20) K/uL Comprehensive Metabolic Panel 03/19/25 03/20/25 Range/Units 11:50 02:16 Sodium 137 136 (136-145) mmol/L Potassium 4.1 3.2 L D (3.5-5.1) mmol/L Chloride 98 104 (98-107) mmol/L Carbon Dioxide 25 24 (21-32) mmol/L BUN 29 H 20 (6-23) mg/dl Creatinine 0.85 0.63 (0.6-1.2) mg/dl Glucose 136 H 162 H (70-99(Fasting)) mg/dl Calcium 10.4 H 9.0 (8.6-10.3) mg/dl AST 14 (13-39) U/L ALT 9 (7-52) U/L Alkaline Phosphatase 88 (34-104) U/L Total Protein 8.4 H (6.0-8.3) gm/dl Albumin 4.7 (3.4-5.0) gm/dl Intake and Output 03/19/25 03/20/25 03/20/25 22:59 06:59 14:59 Intake Total 1170 / 1912.8 242.8 / 1912.8 77.75 / 77.75 Balance 1170 / 1912.8 242.8 / 1912.8 77.75 / 77.75 Intake: IV 650 / 1242.8 92.8 / 1242.8 77.75 / 77.75 Acetaminophen 1,000 mg In 100 100 / 100 ml @ 400 mls/hr IV NOW STA Rx#: [id number] Heparin 70596 Unit/500 ml D5w 92.8 / 92.8 77.75 / 77.75 25,000 units In 500 ml @ 750 UNITS/HR 15 mls/hr IV .Q24H ANGELIA Rx#:[id number] Sodium Chloride 0.9% 500 ml @ 500 / 500 999 mls/hr IV .Q31M ONE Rx#: [id number] [id number] SODIUM 2,000 mg In 50 / 50 50 ml @ 100 mls/hr IV NOW STA Rx#:[id number] Oral 520 / 670 150 / 670 Other: Weight 47.763 kg Weight Measurement Method Built in [facility] Diagnostic Findings Sinus rhythm with occasional premature ventricular contractions and premature atrial contractions and rates 50-70s upon 24 hr telemetry review EKG 03/09/25 at 11:45:50 NSR with occasional PVCs Biatrial enlargement LVH Old anteroseptal infarct 98 bpm QTc 421 ms ECHO 11/29/23 There is a large sized apical, anteroseptal, and anterior wall motion abnormality with hypokinesis to akinesis of the segments (left anterior descending coronary artery territory). The left ventricular systolic function is mildly reduced. Calculated LV ejection Fraction = 45% (three dimensional volumes). There is no left ventricular mural thrombus. The left ventricular diastolic function is mildly abnormal (grade I). Mild aortic valve sclerosis is present. Aortic stenosis is absent. Mild mitral regurgitation is present. PG Care Time/CCT Total # of Minutes Spent Total Time Spent with Patient: Total time spent is greater than 50% in coordination of care (as documented) at patient's floor/unit and/or counseling patient: [place] [address] IN/OBS CONSULT LVL 5,80M Patient Type New Diagnoses Acute hypoxic respiratory failure J96.01 Pneumonia J18.9 Laterality: bilateral Lung location: unspecified part of lung Pneumonia type: due to unspecified organism COPD (chronic obstructive pulmonary disease) J44.9 Sepsis A41.9 Elevated troponin R79.89 Hypertension I10 Tobacco abuse Z72.0 Time Spent (min) 50 (2) Pneumonia Laterality: bilateral Lung location: unspecified part of lung Pneumonia type: due to unspecified organism Qualified Code(s): J18.9 - Pneumonia, unspecified organism
[2025-03-20] MEDS: SERTRALINE HCL 100 MG TABLET PO SCH (08:46)
[2025-03-20] MEDS: EZETIMIBE 10 MG TAB PO SCH (08:46)
[2025-03-20] MEDS: ASPIRIN 81 MG ECTAB PO SCH (08:46)
[2025-03-20] MEDS: METOPROLOL SUCC 25MG EXT REL TAB PO SCH (08:46)
[2025-03-20] MEDS: SERTRALINE HCL 50 MG TABLET PO SCH (08:47)
[2025-03-20] MEDS: METHYLPHENIDATE HCL 10 MG TABLET PO SCH (09:05)
[2025-03-20] MEDS: DICLOFENAC SOD 1% GEL 100 GM TUBE EXT SCH (11:06)
[2025-03-20] MEDS: cefTRIAXone SODIUM 2,000 MG/50 ML BAG IV SCH (11:40)
--- NOTE | 2025-03-20 12:00 | Hospitalist Progress Note ---
Date of Service March 20, 2025 Assessment & Plan (1) Acute hypoxic respiratory failure: (2) Pneumonia: (3) COPD (chronic obstructive pulmonary disease): (4) Sepsis: (5) Elevated troponin: (6) Hypertension: (7) GERD (gastroesophageal reflux disease): (8) ADHD: (9) Tobacco abuse: (10) Depression: Plan 60 year old female with PMH significant for diaphragmatic hernia, hypertension, AAA, GERD, fibromyalgia, ADHD, depression/anxiety, and tobacco use who presents to the ED on 03/19/2025 with SOB and viral symptoms for 3 days. Acute hypoxic respiratory failure secondary to PNA Severe sepsis POA: SIRS +ve and LA elevated at presentation. 2/2 above. COPD exacerbation Rhinovirus URTI Patient presenting with SOB and URI symptoms x3 days Hypoxic to 88% on RA in ED [employer] positive for rhino/enterovirus CXR revealed emphysema - patient has never been dosed with COPD but has [id number] smoking history CT chest revealed early bilateral pneumonia L>R WBC better, pt feels breathing getting better c/w solu-medrol, rocephin and doxy. c/w nebs. f/u blood cx. 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 Recommend follow-up chest CT in 3 months to ensure resolution of pneumonia. PFT as OP In 6-8 weeks. Elevated troponin Initial troponin 341 with repeat 364, slightly uptrended EKG without signs of ischemia Admitting d/w cardio, pt started on hep drip. await formal cardio eval. await echo, c/w tele. Acute on chronic right shoulder pain: pain meds, diclo gel, xr rt shoulder. Hypertension: Continue metoprolol ADHD: Continue Ritalin GERD: Continue PPI Fibromyalgia: Continue gabapentin Depression/anxiety: Continue sertraline Tobacco use Patient reports she quit 3 days ago with this illness Nicotine patch ordered Counseled on cessation DVT Prophylaxis: Heparin gtt Code Status: FULL CODE - As per discussion at bedside with the patient. PCP: Estuardo Booth Disposition: c/w med tele Admission and Anticipated Discharge Date Admission Date: March 19, 2025 Subjective Patient was seen and examined at bedside. Patient was lying in bed, on 5 L oxygen via oxygen mask, NAD, resting comfortably. Patient reports improvement in her chest pain, reports improving cough, reports feeling some better. Patient reports cough getting better, no more productive Patient complains of acute on chronic right shoulder pain, will get an x-ray. Physical Exam Physical Exam: General/Psych: frail, sitting up in bed, NAD, slightly SOB with talking, oxymask in place 5L O2 Head: normocephalic, atraumatic Eyes: normal inspection, PERRL, conjunctivae pink ENT: external ear and nose normal, oropharynx normal Neck: normal visual inspection, trachea midline Respiratory: normal respiratory effort, lungs diminished in bilateral bases and left side with crackles, no accessory muscle use Cardiovascular: regular rate and rhythm, no murmur/rub/gallop, no JVD Extremities: no cyanosis or clubbing, normal peripheral pulses, no BLE edema Abdomen/GI: normal bowel sounds, soft, nontender Neurologic/MSK: A+Ox3, motor strength 5/5, moves all extremities Skin: no rashes, normal color, warm and dry Results & Data Results & Data Vital Signs (Past 12 Hours) Vital Signs Temp Pulse Resp BP Pulse Ox O2 Del Method O2 Flow Rate 03/20/25 11:18 37.1 C 72 18 160/97 H 93 Aerosol Mask 5 03/20/25 07:41 75 18 93 Oxymask 5 03/20/25 07:27 36.5 C 86 18 158/94 H 93 Nasal Cannula 5 03/20/25 03:38 37 C 72 16 158/87 H 92 Oxymask 3
--- NOTE | 2025-03-20 13:57 | XRay Report ---
Clinical History: Pain. 4 views of the right shoulder are submitted for review. Findings: No fracture or dislocation is seen. There is mild acromioclavicular and glenohumeral osteoarthritis. No other osseous abnormality is identified. There are no radiopaque foreign bodies. Impression: Mild osteoarthritis Electronically signed by Augusto Carrasco 03-20-2025 13:56 PM
[2025-03-20] MEDS: NICOTINE 21 MG/24 HR TDSY TD SCH (15:45)
[2025-03-20 16:36] LABS: ANTI-Xa, UFH(UnfractionatedHep 0.17 IU/ml (0.3-0.7)
[2025-03-21 00:23] LABS: ANTI-Xa, UFH(UnfractionatedHep 0.45 IU/ml (0.3-0.7)
[2025-03-21 04:25] LABS: Hematocrit (blood only) 38.3 % (37.0-47.0); Hemoglobin 13.2 g/dl (12.0-16.0); Mean Corpuscular Hemoglobin 32.5 pg (25.0-34.0); Mean Corpuscular Volume 94.3 fL (80.0-100.0); Platelet Count 285 K/uL (130-400); RDW Standard Deviation 43.9 fL (36.4-46.3); Red Blood Count 4.06 M/uL (4.20-5.40); White Blood Count 13.49 K/ul (4.8-10.8)
[2025-03-21 04:41] LABS: Anion Gap 8.0 (3-11); Blood Urea Nitrogen 17.0 mg/dl (6-23); Calcium 9.6 mg/dl (8.6-10.3); Carbon Dioxide 26.0 mmol/L (21-32); Chloride 105.0 mmol/L (98-107); Creatinine Clr Calc Pharmacy 64.4 ml/min; Glucose 132.0 mg/dl (70-99(Fasting)); Magnesium 1.9 mg/dl (1.7-2.4); Potassium 4.0 mmol/L (3.5-5.1); Sodium 139.0 mmol/L (136-145)
[2025-03-21 05:00] LABS: ANTI-Xa, UFH(UnfractionatedHep 0.69 IU/ml (0.3-0.7)
--- NOTE | 2025-03-21 08:21 | Cardiology Progress Note ---
Date of Service March 21, 2025 Assessment & Plan (1) Acute hypoxic respiratory failure: (2) Pneumonia: (3) COPD (chronic obstructive pulmonary disease): (4) Sepsis: (5) Elevated troponin: (6) Hypertension: (7) Tobacco abuse: Plan 60 year old female presented to [facility] on 03/19/25 for evaluation of shortness of breath and viral symptoms for three days. CT Chest (03/19) revealed early bilateral pneumonia L>R. Admitted for severe sepsis and acute hypoxic respiratory failure secondary to pneumonia, COPD exacerbation and rhinovirus URI. High-sensitivity troponins x3 ([phone]) elevated upon admission felt to be due to demand ischemia in setting of severe sepsis and pneumonia infection. EKG revealed sinus rhythm with left ventricular hypertrophy, PVCs and possible prior anteroseptal infarct with no acute ischemic changes. Subsequent EKG revealed increased QTc interval at 480 ms. Previously seen outpatient in October [address] Tovar after an abnormal CTA Abdomen/Pelvis which showed decreased subendocardial attenuation of the left ventricular apex. ECHO (11/29/23) revealed mildly reduced systolic function (LVEF 45%) and LAD territory WMA suggestive of ischemia versus myocardial scar per chart review. Nuclear stress test recommended at that time but was never completed due to insurance issues. Recommendations: * Remains stable and asymptomatic from a cardiac standpoint with no anginal symptoms this morning * Blood pressure elevated with AM vital signs * ECHO yesterday revealed moderately reduced systolic function (LVEF 35-40%) with moderate sized anteroseptal and posterior WMA and mild mixed valvular disease (MR/TR) * Discontinued IV heparin = * Resume lisinopril 20 mg daily (previously on outpatient per chart review) * Start rosuvastatin 20 mg daily * Continue aspirin, toPROL XL and Zetia as per current regimen * Patient likely has underlying chronic coronary artery disease given abnormal ECHO findings and prior cardiac history. Will need close outpatient follow-up with cardiology in 1-2 weeks and further ischemic work-up with possible nucle ar stress test once she recovers from sepsis/pneumonia * Defer to primary team for ongoing management of severe sepsis and bilateral pneumonia Case discussed and coordinated with Dr. Toth. Please see Dr. Toth notes for further recommendations. I spent a total of 35 minutes coordinating, documenting, and providing care for this patient excluding time spent in the performance of separately billed services or time spent by another provider/QHP. YARIEL Yuen Department of Cardiology Admission and Anticipated Discharge Date Admission Date: March 19, 2025 Supervising Physician Co-Signing Physician Notes I spent a total of 30 minutes on the date of service in preparation, delivery, and documentation of the care provided to this patient, excluding any time spent in the performance of separately billed services. I have personally performed a history and physical examination on the patient. I have reviewed the advance practitioner's documentation, and I agree with, and take responsibility for the plan of care. Today patient is adamant about going home. She is not interested in any further inpatient ischemic evaluation. She states because of insurance issues she will be following up with [facility] cardiology group. I explained to the patient and her mother that it is preferable that we work her up as an inpatient given that she had possible ischemic cardiomyopathy from last year and was not able to get the nuclear stress test done however despite over recommendations to have an inpatient workup patient states that she wants to go home and have this done as an outpatient with her outpatient cardiology group. We will add Crestor medication regimen. Otherwise continue current guideline directed medical therapy and patient will need close follow-up with outpatient cardiology. Subjective Seen by cardiology today for examination and follow-up. Sitting comfortably on edge of the bed on room air. States that she feels well and adamant about going home today. 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 Ambulated in the hallway with physical therapy this morning on room air. Had some heart racing with ambulating but otherwise felt well with no dyspnea on exertion or exertional chest pressure or pain. Denies lightheadedness, syncope, orthopnea, PND, or edema. Sinus rhythm/bradycardia with heart rates in 50-70s and occasional PVCs upon 24 hr telemetry review. Chart, medications, and telemetry personally reviewed. Review of Systems Review of Systems: See HPI for pertinent positives. All others negative other than those noted in the HPI. CONSTITUTIONAL: No change in weight, No fever, No chills, No weakness, No fatigue. HEENT: No visual changes, No epistaxis, No bleeding gums, No dysphagia, PULMONARY: No cough, sputum, or hemoptysis, No wheezing, No shortness of breath. CARDIOVASCULAR: +heart racing. No chest pain, No edema, No dyspnea on exertion, No palpitations, No syncope, No claudication, No calf pain. GASTROINTESTINAL: No change in appetite, No abdominal pain, No change in bowel habits, No significant heartburn, No diarrhea, No nausea, No vomiting, No constipation, No blood in stools or black tarry stools, No dysphagia. HEMATOLOGIC: No abnormal bleeding and No bruising. NEUROLOGICAL: No falls, No dizziness, No lightheadedness, Normal balance, No headaches, and No weakness. PSYCH: No sleep disturbances, No mood changes. Physical Exam Physical Exam: Vital signs within normal limits as above. General: Well developed and nourished. No acute distress. A+Ox3. HEENT: Normocephalic. Atraumatic. EOMI. Conjunctiva and sclera clear. NECK: Trachea midline. No thyromegaly. No carotid bruits. No JVD. Carotid upstrokes are brisk. Heart: Tachycardic. Regular rhythm. S1 and S2 noted. No murmur. No rubs or gallops. PMI non displaced. Lungs: No accessory muscle use. Diminished breath sounds throughout posterior lobes. No wheezes.No rhonchi. No rales. Abdomen: Normal bowel sounds. Soft. Nontender. No abdominal bruits. Extremities: Normal capillary refill. No edema. No clubbing or cyanosis. Skin: Warm and dry. NEURO: No focal deficits. PSYCH: Appropriate affect and insight. Results & Data Vital Signs (Past 12 Hours) Vital Signs Temp Pulse Pulse Resp BP Pulse Ox O2 Del Method 03/21/25 08:01 81 18 96 Oxymask 03/21/25 07:17 36.6 C 70 18 159/73 H 94 Oxymask 03/21/25 05:47 61 03/21/25 03:55 36.8 C 63 18 157/86 H 96 Oxymask 03/20/25 23:38 36.7 C 70 20 160/96 H 94 Oxymask 03/20/25 22:00 66 03/20/25 20:20 71 22 95 Oxymask O2 Flow Rate 03/21/25 08:01 5 03/21/25 07:17 5 03/21/25 05:47 03/21/25 03:55 5 03/20/25 23:38 5 03/20/25 22:00 03/20/25 20:20 5 Laboratory Results CBC 03/21/25 Range/Units 03:45 WBC 13.49 H (4.8-10.8) K/ul RBC 4.06 L (4.20-5.40) M/uL Hgb 13.2 (12.0-16.0) g/dl Hct 38.3 (37.0-47.0) % Plt Count 285 (130-400) K/uL Comprehensive Metabolic Panel 03/21/25 Range/Units 03:45 Sodium 139 (136-145) mmol/L Potassium 4.0 D (3.5-5.1) mmol/L Chloride 105 (98-107) mmol/L Carbon Dioxide 26 (21-32) mmol/L BUN 17 (6-23) mg/dl Creatinine 0.70 (0.6-1.2) mg/dl Glucose 132 H (70-99(Fasting)) mg/dl Calcium 9.6 (8.6-10.3) mg/dl Intake and Output 03/20/25 03/21/25 03/21/25 22:59 06:59 14:59 Intake Total 405.833 / 1234.830 668.997 / 1234.830 75.6 / 75.6 Balance 405.833 / 1234.830 668.997 / 1234.830 75.6 / 75.6 Intake: IV 165.833 / 454.830 128.997 / 454.830 75.6 / 75.6 Heparin 24932 Unit/500 ml D5w 165.833 / 404.830 128.997 / 404.830 75.6 / 75.6 25,000 units In 500 ml @ 900 UNITS/HR 18 mls/hr IV .Q24H ANGELIA Rx#:[id number] Oral 240 / 780 540 / 780 Other: # Unmeasured Voids 3 Weight 50 kg Weight Measurement Method Built in [facility] Diagnostic Findings ECHO 03/20/25 LVEF = 35-40% Moderate sized apical, septal, anteroseptal, anterior, and posterior wall motion abnormality with hypokinesis Right ventricular cavity size is normal Right ventricular systolic function is normal Mild mitral regurgitation Mild tricuspid regurgitation PG Care Time/CCT Total # of Minutes Spent Total Time Spent with Patient: Total time spent is greater than 50% in coordination of care (as documented) at patient's floor/unit and/or counseling patient: Coding [place] [address] SUB INP/OBS CARE 350MIN Patient Type Established Medical Decision Making High Complexity Diagnoses Acute hypoxic respiratory failure J96.01 Pneumonia J18.9 Laterality: bilateral Lung location: unspecified part of lung Pneumonia type: due to unspecified organism COPD (chronic obstructive pulmonary disease) J44.9 Sepsis A41.9 Elevated troponin R79.89 Hypertension I10 Tobacco abuse Z72.0 Time Spent (min) 35 (2) Pneumonia Laterality: bilateral Lung location: unspecified part of lung Pneumonia type: due to unspecified organism Qualified Code(s): J18.9 - Pneumonia, unspecified organism
[2025-03-21] MEDS: REMOVE NICODERM PATCH SCH (09:34)
[2025-03-21 11:15] VITALS: PULSE 71; RESP 18; TEMP 98.1
[2025-03-21 11:53] VITALS: O2SAT 92
--- NOTE | 2025-03-21 12:27 | Electrocardiogram Report ---
Test Reason : Blood Pressure : */* mmHG Vent. Rate : 84 BPM Atrial Rate : 84 BPM P-R Int : 140 ms QRS Dur : 80 ms QT Int : 408 ms P-R-T Axes : 76 17 7 degrees QTcB Int : 482 ms Sinus rhythm with occasional Premature ventricular complexes Left ventricular hypertrophy with repolarization abnormality ( [place] product ) Anteroseptal infarct (cited on or before 19-Mar-2025) QTcB >= 480 msec Abnormal ECG When compared with ECG of 19-Mar-2025 11:45, Non-specific change in ST segment in Lateral leads QT has lengthened Confirmed by Odette Sprague (Filipe) on 03/21/2025 12:27:17 PM Referred By: REFERRED SELF Confirmed By: Odette Sprague
[2025-03-21] MEDS: ROSUVASTATIN CALCIUM 20 MG TAB PO SCH (12:57)
[2025-03-21 13:22] VITALS: BP 164/102
--- NOTE | 2025-03-21 14:17 | Discharge Summary ---
Date of Service March 21, 2025 Admission HPI Per Admitting Provider 60 year old female with PMH significant for diaphragmatic hernia, hypertension, AAA, GERD, fibromyalgia, ADHD, depression/anxiety, and tobacco use who presents to the ED on 03/19/2025 with SOB and viral symptoms for 3 days. Patient reports that she developed a head cold with sinus congestion, productive cough with yellow phlegm, and alternating chills and diaphoresis. She has associated SOB that has gotten progressively worse to the point where she felt like she couldn't breathe today, prompting evaluation. She reports chest pain but feels as though it was because her chest was so tight from not being able to take a deep breath. Denies abdominal pain, N/V/D. Denies sick contacts. Former cigarette smoker who quit 3 days ago when her symptoms came on. Lives with her mother. Admission Exam Per Admitting Provider General/Psych: frail, sitting up in bed, NAD, slightly SOB with talking, oxymask in place Head: normocephalic, atraumatic Eyes: normal inspection, PERRL, conjunctivae pink ENT: external ear and nose normal, oropharynx normal Neck: normal visual inspection, trachea midline Respiratory: normal respiratory effort, lungs diminished in bilateral bases and left side with crackles, no accessory muscle use Cardiovascular: regular rate and rhythm, no murmur/rub/gallop, no JVD Extremities: no cyanosis or clubbing, normal peripheral pulses, no BLE edema Abdomen/GI: normal bowel sounds, soft, nontender Neurologic/MSK: A+Ox3, motor strength 5/5, moves all extremities Skin: no rashes, normal color, warm and dry Principal Diagnosis Acute hypoxic respiratory failure secondary to PNA Severe sepsis POA COPD exacerbation Rhinovirus URTI CAD HFrEF Discharge Exam General/Psych: sitting up in bed, NAD, on RA Head: normocephalic, atraumatic Eyes: normal inspection, PERRL, conjunctivae pink ENT: external ear and nose normal, oropharynx normal Neck: normal visual inspection, trachea midline Respiratory: normal respiratory effort, improved aeration bilaterally, no accessory muscle use Cardiovascular: regular rate and rhythm, no murmur/rub/gallop, no JVD Extremities: no cyanosis or clubbing, normal peripheral pulses, no BLE edema Abdomen/GI: normal bowel sounds, soft, nontender Neurologic/MSK: A+Ox3, motor strength 5/5, moves all extremities Skin: no rashes, normal color, warm and dry Discharge Data Allergies Allergy/AdvReac Type Severity Reaction Status Date / Time enoxaparin Allergy Unknown RASH Verified 03/19/25 14:06 Sulfa (Sulfonamide Allergy Unknown HIVES TO Verified 03/19/25 14:06 Antibiotics) SULFA DRUGS Consultations 03/19/25 14:12 ED Decision to Admit Stat 03/20/25 08:23 Consult Cardiology Routine Ordered Studies 03/19/25 12:34 CT angio chest PE protocol Stat Hospital Course (1) Acute hypoxic respiratory failure: (2) Pneumonia: (3) COPD (chronic obstructive pulmonary disease): (4) Sepsis: (5) Elevated troponin: (6) Hypertension: (7) GERD (gastroesophageal reflux disease): (8) ADHD: (9) Tobacco abuse: (10) Depression: Plan 60 year old female with PMH significant for diaphragmatic hernia, hypertension, AAA, GERD, fibromyalgia, ADHD, depression/anxiety, and tobacco use who presents to the ED on 03/19/2025 with SOB and viral symptoms for 3 days. Acute hypoxic respiratory failure secondary to PNA Severe sepsis POA: SIRS +ve and LA elevated at presentation. 2/2 above. COPD exacerbation Rhinovirus URTI Patient presenting with SOB and URI symptoms x3 days Hypoxic to 88% on RA in ED Bio[employer] positive for rhino/enterovirus CXR revealed emphysema - patient has never been dosed with COPD but has 1/[id number] smoking history CT chest revealed early bilateral pneumonia L>R WBC better, pt feels breathing getting better, lung sounds are better today Prednisone x 5 days on dc, c/w cefdinir and doxy to complete atb course. Bl Cx NG sofar, pt advised to f/u w/ PCP within a week time to f/u on final results of bl cx. Pt advised to f/u chest CT in 3 months to ensure resolution of pneumonia. She voiced understanding. PFT as OP In 6-8 weeks. Elevated troponin CAD HFrEF, not in acute exacerbation Initial troponin 341 with repeat 364, slightly uptrended EKG without signs of ischemia ECHO 03/20 revealed moderately reduced systolic function (LVEF 35-40%) with moderate sized anteroseptal and posterior WMA and mild mixed valvular disease (MR/TR) s/p 48 hour hep drip d/w cardio, pt adamant on going home and being discharged on current meds. Pt was counselled the importance of inpatient work up, she stated understanding the risk of not undergoing complete cardiac work up while inpatient including arrhythmia, VT and . She is adamant on leaving today because she says she has old mother at home and she can't leave her mom alone at home. Acute on chronic right shoulder pain: pain meds, diclo gel, xr rt shoulder no fracture. Hypertension: Continue metoprolol ADHD: Continue Ritalin GERD: Continue PPI Fibromyalgia: Continue gabapentin Depression/anxiety: Continue sertraline Tobacco use Patient reports she quit 3 days ago with this illness Nicotine patch ordered Counseled on cessation DVT Prophylaxis: Heparin gtt Code Status: FULL CODE - As per discussion at bedside with the patient. PCP: Estuardo Booth Disposition: c/w med tele Patient is being discharged w/ following instructions: Follow-up with your primary care physician within a week time and likely you will need labs CBC/CMP/magnesium/phosphorus. Follow-up on the final result of blood culture during your PCP visit within a week time upon discharge. You will be discharged on antibiotic to complete the course for anemia, probiotics will be added. You were diagnosed with COPD, recommend that you quit smoking. You will need pulmonary function test in about 6 to 8 weeks time upon discharge and pulmonology referral. Coordinate with your PCP office to set up these. Follow up on CT scan of chest in 2-3 months to document resolution of pneumonia, coordinate with your PCP office to set up the test. Recommend that you follow-up with cardiology in 1 to 2 weeks time of discharge, cardiology evaluated you and you were diagnosed with coronary artery disease and heart failure with reduced ejection fraction, you were recommended to stay inpat ient to further complete your cardiac workup but your declined. If you have chest pain, shortness of breath or palpitations refer to emergency immediately. For your right shoulder pain, you can utilize diclofenac gel as needed for pain, follow-up with your orthopedics as an outpatient as appropriate. Take your medications as prescribed. Please make sure that you are able to get your medications today by calling your pharmacy before you leave the hospital so that your treatment continuity is not broken. Home Health Attestation I certify that this patient is under my care and that I, or a physicians administrative library assistant working with me, had a face to-face encounter that meets the home health [id number] encounter requirements with this patient. The encounter with the patient was in whole, or in part, for the following medical condition, which is the primary reason for home health care (list medical condition): I certify that, based on my findings, the following services are medically necessary home health services: My clinical findings support the need for the above services because: Further, I certify that my clinical findings support that this patient is homebound (i.e. absences from home require considerable and taxing effort and are for medical reasons or islam services or infrequently or of short duration when for other reasons) because: Certification for Home Health Services: Based on the above findings, I certify that this patient is confined to the home and needs intermittent senior living care, physical therapy and/or speech therapy or continues to need occupational therapy. The patient is under my care, and I have initiated the establishment of the plan of care. This patient will be followed by a physician who will periodically review the plan of care. Total Time Total Time Spent Total Time Spent (In Minutes): 55 Discharge Plan Discharge Items Patient Disposition: Home - Self-Care Reason For Visit: PNA Discharge Diagnosis: Acute hypoxic respiratory failure secondary to PNA Severe sepsis POA COPD exacerbation Rhinovirus URTI CAD HFrEF Condition on Discharge: Serious Activity: Resume your previous activity Non-emergency contact: Primary Care Provider Call non-emergency contact if: you have any medication questions Follow-up/Referrals: Estuardo Booth MD [Primary Care Provider] - Diet: Heart Healthy Addtl Attending Provider Instructions: Follow-up with your primary care physician within a week time and likely you will need labs CBC/CMP/magnesium/phosphorus. Follow-up on the final result of blood culture during your PCP visit within a week time upon discharge. You will be discharged on antibiotic to complete the course for anemia, prob iotics will be added. You were diagnosed with COPD, recommend that you quit smoking. You will need pulmonary function test in about 6 to 8 weeks time upon discharge and pulmonology referral. Coordinate with your PCP office to set up these. Follow up on CT scan of chest in 2-3 months to document resolution of pneumonia, coordinate with your PCP office to set up the test. Recommend that you follow-up with cardiology in 1 to 2 weeks time of discharge, cardiology evaluated you and you were diagnosed with coronary artery disease and heart failure with reduced ejection fraction, you were recommended to stay inpatient to further complete your cardiac workup but your declined. If you have chest pain, shortness of breath or palpitations refer to emergency immediately. For your right shoulder pain, you can utilize diclofenac gel as needed for pain, follow-up with your orthopedics as an outpatient as appropriate. Take your medications as prescribed. Please make sure that you are able to get your medications today by calling your pharmacy before you leave the hospital so that your treatment continuity is not broken. Pending Studies at Discharge: Yes Stand-Alone Forms: My [facility] [employer], Smoking Cessation Medications and DC Order Prescriptions: New doxycycline hyclate 100 mg Capsule 100 mg PO BID 3 Days Qty: 6 0RF nicotine [Nicoderm CQ] 21 mg/24 hr Patch 24 Hour 1 patch transdermal QAM Qty: 28 0RF ezetimibe 10 mg Tablet 10 mg PO QAM Qty: 30 0RF lisinopril 20 mg Tablet 20 mg PO QAM Qty: 30 0RF rosuvastatin 20 mg Tablet 20 mg PO QAM Qty: 30 0RF diclofenac sodium [Voltaren Arthritis Pain] 1 % Gel 4 g EXT Q6H PRN (Reason: right shoulder pain) Qty: 100 0RF prednisone 20 mg Tablet 40 mg PO QAM 5 Days Qty: 10 0RF cefdinir 300 mg capsule 300 mg PO BID 5 Days Qty: 10 0RF Probiotic 3 billion cell capsule 3,000 mmu cells PO DAILY 7 Days Qty: 7 0RF Rx Instructions: administer with a meal Continued methylphenidate HCl [Ritalin] 10 mg tablet 10 mg PO DIRECTED Patient Comments: NOON AND 4 PM Rx Instructions: Twice daily at 1200 & 1600 methylphenidate HCl [Ritalin] 20 mg tablet 20 mg PO QAM sertraline [Zoloft] 100 mg Tablet 100 mg PO QAM oxycodone 5 mg tablet 5 mg PO Q4H MDD 6 tabs PRN (Reason: pain) Qty: 18 0RF omeprazole 40 mg capsule,delayed release(DR/EC) 40 mg PO DAILY aspirin 81 mg tablet,delayed release (DR/EC) 81 mg PO DAILY gabapentin 800 mg tablet 800 mg PO TID sertraline 25 mg tablet 25 mg PO DAILY mirtazapine 15 mg tablet 15 mg PO HS metoprolol succinate 25 mg tablet extended release 24 hr 25 mg PO DAILY Discharge Orders: Discharge Order (Routine); Ordered 03/21/25 Ordered By: Abril Dorado Admission Data Admit Date/Time: 03/19/25 15:04 Attending Provider: Abril Dorado Admit Provider: Patrick Jackson Primary Care Provider: Estuardo Booth Other Providers: Patrick Jackson; Sharon Anaya; Jean Tovar; Hasmukh Rivera; Ronald Tucker; David Baum; Estuardo Vazquez; Milena Briggs; Makenna Crews; Anna Marie Garcia; Felipa Briones; Sharon Strickland; Yobany Jolley; Tarun Toth; Deidre Moreira; Faith Moncada; Naomi Juan; Carlos Mcarthur; Landon Cope; Mounika Mulligan; Jennifer Noriega; Elias Taylor; Tank Galvan N
[2025-03-22] MEDS ORDERED: predniSONE 20 MG TAB PO SCH (09:00)
== END 2025-03-21 14:45 | disposition home or self-care (01) | DRG 871 ==
LOC: ED 11:30 → SUATTDRO 15:04 → 2W 15:04